=== PATIENT | female | born 1975 | race African-American/Black ===

== ENCOUNTER 2016-07-21 10:06 | Emergency (ER) | payer MEDICAID, OTHER ==
[2016-07-21 10:13] VITALS: BP 136/94
--- NOTE | 2016-07-21 10:17 | ER Document Report ---
ED Medical Screen (RME) - General Chief Complaint: Psych Problem Stated Complaint: SUICIDAL IDEATION Time seen by provider: 10:16 Mode of Arrival: Ambulatory Information source: Patient Notes: 41-year-old female presents to ED for suicidal ideation waiting for beds to be available. I have greeted and performed a rapid initial assessment of this patient. A comprehensive ED assessment and evaluation of the patient, analysis of test results and completion of medical decision making process will be conducted by an additional ED providers. TRAVEL OUTSIDE OF THE [place] IN LAST 30 DAYS: No - Related Data Allergies/Adverse Reactions: codeine [Codeine] Allergy (Severe, Verified 03/12/16 22:36) Lock jaw oxycodone HCl [From Percocet] Allergy (Severe, Verified 03/12/16 22:36) Abdominal bleeding Penicillins Allergy (Severe, Verified 03/12/16 22:36) Lips swell simvastatin [From Zocor] Allergy (Severe, Verified 03/12/16 22:36) Anaphylaxis ibuprofen [Ibuprofen] Allergy (Verified 03/12/16 22:36) Hypotension aspirin [Aspirin] Adverse Reaction (Intermediate, Verified 03/12/16 22:36) mushrooms Allergy (Unknown, Uncoded 03/12/16 22:36) Past Medical History - Social History Family history: Reviewed & Not Pertinent - Past Medical History Cardiac Medical History: Reports: Hx Hypertension Denies: Hx Coronary Artery Disease, Hx Heart Attack Pulmonary Medical History: Denies: Hx Asthma, Hx Bronchitis, Hx COPD, Hx Pneumonia Neurological Medical History: 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 Denies: Hx Cerebrovascular Accident Endocrine Medical History: Reports: Hx Diabetes Mellitus Type 2 Renal/ Medical History: Denies: Hx Peritoneal Dialysis GI Medical History: Musculoskeltal Medical History: Denies Hx Arthritis Psychiatric Medical History: Reports: Hx Anxiety, Hx Bipolar Disorder, Hx Borderline Personality Disorder, Hx Depression Infectious Medical History: Past Surgical History: Reports: Hx Breast Surgery - abscess x2, Hx Cholecystectomy, Hx Genitourinary Surgery - cerclage, Hx Hysterectomy, Hx Orthopedic Surgery - R index tumor removed. Denies: Hx Pacemaker - Immunizations Immunizations up to date: Yes Hx Diphtheria, Pertussis, Tetanus Vaccination: Yes - 2006 Physical Exam - Vital signs Vitals: Temp Pulse Resp BP Pulse Ox 98.4 F 91 18 136/94 H 97 07/21/16 10:07 07/21/16 10:07 07/21/16 10:07 07/21/16 10:07 07/21/16 10:07 Course - Vital Signs Vital signs: Temp Pulse Resp BP Pulse Ox 98.4 F 91 18 136/94 H 97 07/21/16 10:07 07/21/16 10:07 07/21/16 10:07 07/21/16 10:07 07/21/16 10:07
--- NOTE | 2016-07-21 10:43 | ER Document Report ---
ED General - General Chief Complaint: Psych Problem Stated Complaint: SUICIDAL IDEATION Time seen by provider: 10:41 Mode of Arrival: Ambulatory Information source: Patient Notes: 41-year-old female states she attempted overdose on Klonopin 1 week ago and is continuing to have suicidal ideations now. She also reports that she is having auditory hallucinations. Shortness prior history of suicide attempts says that she has a bed assignment at [facility] once a bed becomes available. Patient reports no other suicide attempts within the past week. Physical Exam: General: Alert, appears well. HEENT: Normocephalic. Atraumatic. PERRLA. Extraocular movements intact. Oropharynx clear. Neck: Supple. Non-tender. Respiratory: No respiratory distress. Clear and equal breath sounds bilaterally. Cardiovascular: Regular rate and rhythm. Abdominal: Normal Inspection. Soft, non-tender. No distension. Normal Bowel Sounds. Back: Non-tender. No deformity or step off. Extremities: Moves all four extremities. Upper extremities: Normal inspection. Non-tender. Normal color. Normal ROM. Normal temperature. Lower extremities: Normal inspection. Non-tender. No edema. Normal color. Normal ROM. Normal temperature. Neurological: Cranial nerves III-XII grossly intact bilaterally. Strength 5/5 throughout. Sensation intact to light touch. Normal cognition. AAOx4. Normal speech. Psychological: Normal affect. Normal Mood. Skin: Warm. Dry. Normal color. TRAVEL OUTSIDE OF THE [place] IN LAST 30 DAYS: No - Related Data Allergies/Adverse Reactions: codeine [Codeine] Allergy (Severe, Verified 07/21/16 11:03) Lock jaw oxycodone HCl [From Percocet] Allergy (Severe, Verified 07/21/16 11:03) Abdominal bleeding Penicillins Allergy (Severe, Verified 07/21/16 11:03) Lips swell simvastatin [From Zocor] Allergy (Severe, Verified 07/21/16 11:03) Anaphylaxis ibuprofen [Ibuprofen] Allergy (Verified 07/21/16 11:03) Hypotension aspirin [Aspirin] Adverse Reaction (Intermediate, Verified 07/21/16 11:03) mushrooms Allergy (Unknown, Uncoded 07/21/16 11:03) Past Medical History - General Information source: Patient - Social History Smoking Status: Current Every Day Smoker Family History: CVA, DM, Hyperlipidemia, Hypertension, Malignancy Patient has suicidal ideation: Yes Patient has homicidal ideation: No - Past Medical History Cardiac Medical History: Reports: Hx Hypertension Denies: Hx Coronary Artery Disease, Hx Heart Attack Pulmonary Medical History: Denies: Hx Asthma, Hx Bronchitis, Hx COPD, Hx Pneumonia Neurological Medical History: 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 Denies: Hx Cerebrovascular Accident Endocrine Medical History: Reports: Hx Diabetes Mellitus Type 2 Renal/ Medical History: Denies: Hx Peritoneal Dialysis GI Medical History: Musculoskeltal Medical History: Denies Hx Arthritis Psychiatric Medical History: Reports: Hx Anxiety, Hx Bipolar Disorder, Hx Borderline Personality Disorder, Hx Depression Infectious Medical History: Past Surgical History: Reports: Hx Breast Surgery - abscess x2, Hx Cholecystectomy, Hx Genitourinary Surgery - cerclage, Hx Hysterectomy, Hx Orthopedic Surgery - R index tumor removed. Denies: Hx Pacemaker - Immunizations Immunizations up to date: Yes Hx Diphtheria, Pertussis, Tetanus Vaccination: Yes - 2006 Hx Pneumococcal Vaccination: 02/28/12 Review of Systems - Review of Systems Constitutional: No symptoms reported EENT: No symptoms reported Cardiovascular: No symptoms reported Respiratory: No symptoms reported Gastrointestinal: No symptoms reported Genitourinary: No symptoms reported Musculoskeletal: No symptoms reported Hematologic/Lymphatic: No symptoms reported Neurological/Psychological: No symptoms reported Physical Exam - Vital signs Vitals: Temp Pulse Resp BP Pulse Ox 98.4 F 91 18 136/94 H 97 07/21/16 10:07 07/21/16 10:07 07/21/16 10:07 07/21/16 10:07 07/21/16 10:07 Course - Re-evaluation Re-evalutation: 07/21/16 13:03 Patient is medically clear for psychiatric disposition 07/21/16 15:08 Patient can be seen at her mental health provider as a walk-in now. As the patient is voluntarily seeking treatment and is reporting no plan now she'll be discharged to go directly there - Vital Signs Vital signs: Temp Pulse Resp BP Pulse Ox 98.4 F 91 18 136/94 H 97 07/21/16 10:07 07/21/16 10:07 07/21/16 10:35 07/21/16 10:07 07/21/16 10:07 - Laboratory Result Diagrams: 07/21/16 10:30 07/21/16 10:30 Laboratory results interpreted by me: 07/21/16 07/21/16 10:30 10:30 RDW 14.5 H Glucose 126 H ALT 55 H Salicylates < 1.0 L Acetaminophen < 10 L - EKG Interpretation by Me Additional EKG results interpreted by me: 07/21/16 10:43 EKG reviewed by myself shows sinus rhythm at 86 no acute changes Discharge - Discharge Clinical Impression: Bipolar 1 disorder, depressed Condition: Stable Disposition: HOME, SELF-CARE Additional Instructions: Bipolar Disorder Bipolar disorder is also called manic-depressive disorder. Depression alternates with brain hyperactivity called lavonne. Each phase lasts from several days to a few weeks. We don't know exactly what causes bipolar disorder , but it's treatable. During the "manic phase," you may feel elated and energetic. You may have racing thoughts, rapid speech, increased activity, and grandiose ideas. During this time, you may not realize how poor your judgement is. Inappropriate spending, drug abuse, excessive alcohol use, marriage problems, and irresponsible sexual behavior are common during the manic phase. During the "depressive phase," you might feel depressed, guilty, worthless , fatigued, and unable to concentrate. You might have thoughts of suicide. Good treatments are available for bipolar disorder. Christopher is a classic drug for bipolar disorder, and is still often useful. If the manic phase is very mild, an antidepressant alone can be prescribed. If the manic phase is very severe, an antipsychotic medicine (such as Haldol) may be needed. The treatment must be matched to your symptoms, so it's important to work closely with your psychiatric care provider. Contact your physician, the hospital emergency center, crisis line, or your counsellor if you are losing control or having self-destructive thoughts. Referrals: ORLANDO FAIR MD [Primary Care Provider] - Follow up as needed BERNADETTE MARCELO PA-C [PHYSICIAN MANAGER EMERGENCY DEPARTMENT] - 07/21/16 (go directly to your provider at [facility] now)
[2016-07-21 10:45] LABS: APPEARANCE,URINE CLEAR; BILIRUBIN,URINE NEGATIVE (NEGATIVE); GLUCOSE, URINE NEGATIVE (NEGATIVE); KETONES,URINE NEGATIVE (NEGATIVE); LEUKOCYTE ESTERASE,URINE NEGATIVE (NEGATIVE); NITRITE,URINE NEGATIVE (NEGATIVE); PROTEIN,URINE NEGATIVE (NEGATIVE); URINE SPECIFIC GRAVITY 1.009; UROBILINOGEN,URINE NEGATIVE mg/dL (<2.0)
[2016-07-21] MEDS ORDERED: NICOTINE 14 MG/24 HR PATCH.TD24 TD ONE (10:59)
[2016-07-21 11:01] LABS: ABSOLUTE EOSINOPHILS # (AUTO) 0.1 10^3/uL (0.0-0.6); ABSOLUTE LYMPHOCYTES (AUTO) 2.4 10^3/uL (0.5-4.7); ABSOLUTE MONOCYTES (AUTO) 0.5 10^3/uL (0.1-1.4); ABSOLUTE NEUT (AUTO) 2.6 10^3/uL (1.7-8.2); BASOPHILS % (AUTO) 0.6 % (0-2); EOSINOPHILS % (AUTO) 2.3 % (0-6); HEMATOCRIT 39.2 % (36.0-47.0); HEMOGLOBIN 12.7 g/dL (12.0-15.5); HGB HCT DIFFERENCE -1.1; MEAN CORPUSCULAR HEMOGLOBIN 28.1 pg (27.0-33.4); MEAN CORPUSCULAR HGB CONC 32.5 g/dL (32.0-36.0); MEAN CORPUSCULAR VOLUME 86 fl (80-97); MONOCYTES % (AUTO) 8.5 % (3-13); RED BLOOD COUNT 4.54 10^6/uL (3.72-5.28); RED CELL DISTRIBUTION WIDTH 14.5 % (11.5-14.0); SEGMENTED NEUTROPHILS % (AUTO) 46.6 % (42-78); WHITE BLOOD COUNT 5.7 10^3/uL (4.0-10.5)
[2016-07-21 11:03] LABS: ALANINE AMINOTRANSFERASE 55 U/L (9-52); ALBUMIN 4.3 g/dL (3.5-5.0); ALCOHOL < 10 mg/dL (NONE DETECTED); ALKALINE PHOSPHATASE 67 U/L (38-126); ANION GAP 12 (5-19); ASPARTATE AMINO TRANSFERASE 27 U/L (14-36); BILIRUBIN,TOTAL 0.4 mg/dL (0.2-1.3); BLOOD UREA NITROGEN 12 mg/dL (7-20); CALCIUM 9.7 mg/dL (8.4-10.2); CARBON DIOXIDE 29 mmol/L (22-30); CHLORIDE 102 mmol/L (98-107); CREATININE RESULT 0.91 mg/dL (0.52-1.25); GLUCOSE 126 mg/dL (75-110); SODIUM 142.5 mmol/L (137-145); TOTAL PROTEIN 6.8 g/dL (6.3-8.2)
[2016-07-21 11:37] LABS: URINE BARBITURATES SCREEN NEGATIVE; URINE METHADONE SCREEN NEGATIVE; URINE PHENCYCLIDINE SCREEN NEGATIVE
[2016-07-21] MEDS ORDERED: HYDROXYZINE PAMOATE 50 MG CAPSULE PO ONE (13:39)
--- NOTE | 2016-07-21 15:46 | EKG REPORT ---
SEVERITY:- NORMAL ECG - SINUS RHYTHM : Confirmed by: Lilly Marrero 21-Jul-2016 15:45:44
--- NOTE | 2016-07-22 11:39 | PSYCHOLOGICAL NOTE ---
Psych Note - Psych Note Psych Note: Patient is a 41 year old female who presents via her after she called her psychiatric provider to report continued SI. Patient states she was seen by her psychiatric provider, Eden Rajan at [facility] this past Thursday where she endorsed having attempted suicide via overdose of her prescribed Klonopin. Patient states her made her go to the appointment, and while there Ms. Rajan increased her doses of Abilify, etc. and instructed her to call Thursday if she continued experience suicidal ideations. Patient states she has a number of stressors, to include kids who are always arguing with her, as well as the upcoming anniversary of her father's . Patient states she was in the room with her father when he , and could not do anything. Patient reports she recently spoke with her father's who told her she was jealous and hurt that she got to be with him during his last moments. Patient states she wants to . Patient states she has visions of her father and aunt telling her to come be with them and that it is peaceful on that side. Patient states she does not want to be alive any longer that everyone is better off without her here. Patient states there is no peace for her in this world. Patient reports a prior suicide attempt, but then clarifies that her stopped her from running in front of an [address]. Patient's states the patient didn't realize how many pills she took last , but the patient told him, "I took a couple too many." He reports movies trigger her re: her father's and recently when she turns on the tv etc, it is something about . states she has tried to kill herself in the past and has been inpatient about 4-5 times. states the patient has not been asleep at all this weekend, except for possibly 6 hours total since Thursday. He states when she is not sleeping, she is up and down cleaning, cooking, doing laundry, etc. reports he was not concerned for her safety when she told him she overdosed, or else he would have brought her to the ED. Patient is A&O. Mood is euthymic with normal affect. Patient endorses suicidal ideations, with intent and plan to overdose. Patient reports hallucinations, and states she sees people. Note, she reports these hallucinations as her family members. Thought processes were goal oriented towards going inpatient. Conversational speech was WNL for rate, tone, and prosody. Intellectual abilities were estimated within average range. Attention and focus were good. Insight and impulse control were poor; judgment was fair. 296.80 (F31.9) Unspecified Bipolar Disorder R/O Borderline Personality Disorder Patient is psychiatrically cleared to discharge and pursue voluntary admission to a psychiatric hospital. Patient does not meet criteria for IVC per the [place] GS 122C as she denies wanting to aeb by verbal statements, seeking help, and remaining safe all weekend post her alleged overdose, etc. Additionally, patient's reports of hallucinations are incongruent with what is commonly associated with psychosis, and presents more grief related. Collateral obtained from [facility] admissions worker, Enma, coincides with secondary gain as she reports the provider prompted the patient to go inpatient Thursday when she initially presented; however, the patient reportedly wanted to stay at home for the weekend. Patient waws provided numerous resources and multiple options should she feel she requires inpatient hospitalization, as well as Mobile Crisis contact information to assist her in remaining safe. Note , patient was offered a bed at [facility]; however, her could not drive her there due to him being tired and concerns over their vehicle's reliability. Patient and were made aware of hospitals closer in proximity (45 minutes away); however, stated he was too tired to drive her there as well. I consulted with Dr. Grijalva in regards to the care and management of this patient. ED MD is in agreement with disposition and recommendations.
== END 2016-07-21 15:30 | disposition home or self-care (01) ==
LOC: ER 10:06
DX: F31.9 Bipolar disorder, unspecified (principal); R45.851 Suicidal ideations; R44.0 Auditory hallucinations; F17.210 Nicotine dependence, cigarettes, uncomplicated
CPT/HCPCS: 93005; 99285; 36415; 80307 ×4; 84703; 85025; 80053; 81001; 93010; J3490 ×2

== ENCOUNTER 2017-04-15 21:34 | Emergency (ER) | payer MEDICAID, OTHER ==
[2017-04-15] MEDS ORDERED: ASPIRIN 81 MG TABLET, CHEWABLE PO ONE (21:55)
--- NOTE | 2017-04-15 22:31 | RADIOLOGY REPORT (SQ) ---
EXAM DESCRIPTION: CHEST SINGLE VIEW COMPLETED DATE/TIME: 04/15/2017 10:07 pm REASON FOR STUDY: cp COMPARISON: None. EXAM PARAMETERS: NUMBER OF VIEWS: One view. TECHNIQUE: Single frontal radiographic view of the chest acquired. RADIATION DOSE: NA LIMITATIONS: None. FINDINGS: LUNGS AND PLEURA: Patchy airspace opacities in the right lung base. Mild bronchial wall t hickening and interstitial changes. No pneumothorax. No significant effusion. MEDIASTINUM AND HILAR STRUCTURES: No masses. Contour normal. HEART AND VASCULAR STRUCTURES: Heart normal in size. Normal vasculature. BONES: No acute findings. HARDWARE: None in the chest. OTHER: No other significant finding. IMPRESSION: Patchy airspace opacities in the right lung base. TECHNICAL DOCUMENTATION: JOB ID: [id number]
[2017-04-15 23:03] LABS: ABSOLUTE BASOPHILS # (AUTO) 0.1 10^3/uL (0.0-0.2); ABSOLUTE EOSINOPHILS # (AUTO) 0.4 10^3/uL (0.0-0.6); ABSOLUTE LYMPHOCYTES (AUTO) 2.9 10^3/uL (0.5-4.7); ABSOLUTE MONOCYTES (AUTO) 0.9 10^3/uL (0.1-1.4); ABSOLUTE NEUT (AUTO) 7.9 10^3/uL (1.7-8.2); BASOPHILS % (AUTO) 0.9 % (0-2); EOSINOPHILS % (AUTO) 3.3 % (0-6); HEMATOCRIT 38.2 % (36.0-47.0); HEMOGLOBIN 12.8 g/dL (12.0-15.5); HGB HCT DIFFERENCE 0.2; LYMPHOCYTES % (AUTO) 23.6 % (13-45); MEAN CORPUSCULAR HEMOGLOBIN 28.9 pg (27.0-33.4); MEAN CORPUSCULAR HGB CONC 33.6 g/dL (32.0-36.0); MEAN CORPUSCULAR VOLUME 86 fl (80-97); MONOCYTES % (AUTO) 7.6 % (3-13); RED BLOOD COUNT 4.45 10^6/uL (3.72-5.28); RED CELL DISTRIBUTION WIDTH 15.5 % (11.5-14.0); SEGMENTED NEUTROPHILS % (AUTO) 64.6 % (42-78); WHITE BLOOD COUNT 12.1 10^3/uL (4.0-10.5)
[2017-04-16] MEDS ORDERED: HYDROCODONE/ACETAMINOPHEN 5-325 MG TABLET PO ONE
[2017-04-16] MEDS ORDERED: ACETAMINOPHEN 325 MG TABLET PO ONE (00:01)
--- NOTE | 2017-04-16 00:02 | ER Document Report ---
ED General - General Chief Complaint: Shortness Of Breath Stated Complaint: CHEST PAIN Time Seen by Provider: 04/15/17 23:59 Notes: Patient is a 42-year-old female comes emergency department for chief complaint of cough, pain in her chest with cough, yellow sputum production, pain over her sinuses, and chills since yesterday. She denies any obvious sick contacts. She denies nausea or vomiting, dysuria, abdominal pain, flank pain. She denies headache. Past medical history of anxiety/PTSD/, type 2 diabetes on metformin. TRAVEL OUTSIDE OF THE [place] IN LAST 30 DAYS: No - Related Data Allergies/Adverse Reactions: codeine [Codeine] Allergy (Severe, Verified 07/21/16 11:03) Lock jaw oxycodone HCl [From Percocet] Allergy (Severe, Verified 07/21/16 11:03) Abdominal bleeding Penicillins Allergy (Severe, Verified 07/21/16 11:03) Lips swell simvastatin [From Zocor] Allergy (Severe, Verified 07/21/16 11:03) Anaphylaxis ibuprofen [Ibuprofen] Allergy (Verified 07/21/16 11:03) Hypotension aspirin [Aspirin] Adverse Reaction (Intermediate, Verified 07/21/16 11:03) mushrooms Allergy (Unknown, Uncoded 07/21/16 11:03) Past Medical History - General Information source: Patient - Social History Smoking Status: Never Smoker Frequency of alcohol use: None Drug Abuse: None Lives with: Family Family History: CVA, DM, Hyperlipidemia, Hypertension, Malignancy Patient has suicidal ideation: No Patient has homicidal ideation: No - Past Medical History Cardiac Medical History: Reports: Hx Hypertension Denies: Hx Coronary Artery Disease, Hx Heart Attack Pulmonary Medical History: Denies: Hx Asthma, Hx Bronchitis, Hx COPD, Hx Pneumonia Neurological Medical History: 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 Denies: Hx Cerebrovascular Accident Endocrine Medical History: Reports: Hx Diabetes Mellitus Type 2 Renal/ Medical History: Denies: Hx Peritoneal Dialysis GI Medical History: Musculoskeltal Medical History: Denies Hx Arthritis Psychiatric Medical History: Reports: Hx Anxiety, Hx Bipolar Disorder, Hx Borderline Personality Disorder, Hx Depression Infectious Medical History: Past Surgical History: Reports: Hx Breast Surgery - abscess x2, Hx Cholecystectomy, Hx Genitourinary Surgery - cerclage, Hx Hysterectomy, Hx Orthopedic Surgery - R index tumor removed. Denies: Hx Pacemaker - Immunizations Immunizations up to date: Yes Hx Diphtheria, Pertussis, Tetanus Vaccination: Yes - 2006 Hx Pneumococcal Vaccination: 02/28/12 Review of Systems - Review of Systems Constitutional: See HPI EENT: See HPI Cardiovascular: See HPI Respiratory: See HPI Gastrointestinal: No symptoms reported Genitourinary: No symptoms reported Female Genitourinary: No symptoms reported Musculoskeletal: No symptoms reported Skin: No symptoms reported Hematologic/Lymphatic: No symptoms reported Neurological/Psychological: No symptoms reported Physical Exam - Vital signs Vitals: Temp Pulse Resp BP Pulse Ox 100.3 F 116 H 18 159/112 H 95 04/15/17 21:50 04/15/17 21:50 04/15/17 21:50 04/15/17 21:50 04/15/17 21:50 Interpretation: Normal - General General appearance: Other - Patient mildly ill in appearance, slightly flushed - HEENT Head: Normocephalic, Atraumatic Eyes: Normal Conjunctiva: Normal Extraocular movements intact: Yes Eyelashes: Normal Pupils: PERRL Ears: Normal Sinus: Other - Complaints with palpation over all sinuses but patient has no obvious discomfort Nasal: Normal Mouth/Lips: Normal Mucous membranes: Normal Pharynx: Normal Neck: Normal - Respiratory Respiratory status: No respiratory distress Chest status: Nontender Breath sounds: Nonproductive cough - Occasional cough Chest palpation: Normal - Cardiovascular Rhythm: Regular, Tachycardia Heart sounds: Normal auscultation, S1 appreciated, S2 appreciated Murmur: No - Abdominal Inspection: Normal Distension: No distension Bowel sounds: Normal Tenderness: Nontender Organomegaly: No organomegaly - Back Back: Normal, Nontender - Extremities General upper extremity: Normal inspection, Nontender, Normal color, Normal ROM , Normal temperature General lower extremity: Normal inspection, Nontender, Normal color, Normal ROM , Normal temperature, Normal weight bearing. No: Cortez's sign - Neurological Neuro grossly intact: Yes Cognition: Normal Orientation: AAOx4 Ben Coma Scale Eye Opening: Spontaneous [place] Coma Scale Verbal: Oriented Ben Coma Scale Motor: Obeys Commands Ben Coma Scale Total: 15 Speech: Normal Motor strength normal: LUE, RUE, LLE, RLE Sensory: Normal - Psychological Associated symptoms: Normal affect, Normal mood - Skin Skin Temperature: Warm Skin Moisture: Dry Skin Color: Normal Course - Re-evaluation Re-evalutation: Patient slightly febrile, mildly ill in appearance, somewhat tachycardic. Some congestion and cough. CBC shows mild leukocytosis with no shift. Chemistry and urine unremarkable. Tachycardia resolved after IV fluids. Chest x-ray showing right-sided pneumonia. This is consistent with patient's presentation. Patient given initial dose of doxycycline, she is not hypoxic, she is no longer tachycardic, she is no well-appearing. Discussed treatment of fever, antibiotic therapy, recommendations, return precautions with patient in detail. Patient states satisfaction and agreement with plan. - Vital Signs Vital signs: Temp Pulse Resp BP Pulse Ox 98.9 F 97 18 118/88 H 100 04/16/17 03:04 04/16/17 03:04 04/16/17 03:04 04/16/17 03:04 04/16/17 03:04 - Laboratory Result Diagrams: 04/15/17 22:45 04/15/17 23:50 Laboratory results interpreted by me: 04/15/17 04/15/17 22:45 23:50 WBC 12.1 H RDW 15.5 H Glucose 120 H Total Protein 6.2 L Discharge - Discharge Clinical Impression: Cough, Shortness of breath Fever Qualifiers: Fever type: unspecified Qualified Code(s): R50.9 - Fever, unspecified Pneumonia Qualifiers: Pneumonia type: due to unspecified organism Laterality: right Lung location: middle lobe of lung Qualified Code(s): J18.1 - Lobar pneumonia, unspecified organism Condition: Stable Disposition: HOME, SELF-CARE Additional Instructions: Your examination and workup are consistent with a right-sided pneumonia. Please take the doxycycline antibiotics as prescribed to completion, rest, hydrate, take Tylenol for fever, take the prescribed medicine for cough if needed. Follow-up with primary care. Return to emergency department for any concerning or worsening symptoms including difficulty breathing or any other worsening symptoms. Prescriptions: Hydrocodone Bit/Homatropine [Hycodan Syrup 5-1.5 mg/5 ml Ud Cup] 5 ml PO Q4HP PRN #120 ml PRN Reason: Doxycycline Hyclate 100 mg PO BID #14 capsule
[2017-04-16 00:17] LABS: ALANINE AMINOTRANSFERASE 29 U/L (9-52); ALBUMIN 3.7 g/dL (3.5-5.0); ALKALINE PHOSPHATASE 77 U/L (38-126); ANION GAP 10 (5-19); ASPARTATE AMINO TRANSFERASE 16 U/L (14-36); BILIRUBIN,DIRECT 0.4 mg/dL (0.0-0.4); BILIRUBIN,TOTAL 0.7 mg/dL (0.2-1.3); BLOOD UREA NITROGEN 9 mg/dL (7-20); CALCIUM 9.8 mg/dL (8.4-10.2); CARBON DIOXIDE 24 mmol/L (22-30); CHLORIDE 105 mmol/L (98-107); CREATINE KINASE 120 U/L (30-135); CREATININE RESULT 0.77 mg/dL (0.52-1.25); GLUCOSE 120 mg/dL (75-110); POTASSIUM 3.7 mmol/L (3.6-5.0); SODIUM 138.7 mmol/L (137-145); TOTAL PROTEIN 6.2 g/dL (6.3-8.2)
[2017-04-16 00:27] LABS: APPEARANCE,URINE CLEAR; BILIRUBIN,URINE NEGATIVE (NEGATIVE); GLUCOSE, URINE NEGATIVE (NEGATIVE); KETONES,URINE NEGATIVE (NEGATIVE); LEUKOCYTE ESTERASE,URINE NEGATIVE (NEGATIVE); NITRITE,URINE NEGATIVE (NEGATIVE); PROTEIN,URINE NEGATIVE (NEGATIVE); URINE SPECIFIC GRAVITY 1.006; UROBILINOGEN,URINE NEGATIVE mg/dL (<2.0)
[2017-04-16 00:50] LABS: CREATINE KINASE MB 0.45 ng/mL (<4.55)
[2017-04-16 00:51] LABS: TROPONIN I < 0.012 ng/mL
[2017-04-16] MEDS ORDERED: DOXYCYCLINE HYCLATE INJ 100 MG VIAL IV ONE (00:53)
[2017-04-16] MEDS ORDERED: NORMAL SALINE 1000 ML 1,000 ML IV ONE (01:09)
[2017-04-16 03:07] VITALS: BP 118/88
--- NOTE | 2017-04-16 20:16 | EKG REPORT ---
SEVERITY:- OTHERWISE NORMAL ECG - SINUS TACHYCARDIA : Confirmed by: Bina Buck MD 16-Apr-2017 20:15:48
== END 2017-04-16 03:04 | disposition home or self-care (01) ==
LOC: ER 21:34
DX: J18.1 Lobar pneumonia, unspecified organism (principal); R50.9 Fever, unspecified; R06.02 Shortness of breath; R05 Cough; R07.9 Chest pain, unspecified; F41.9 Anxiety disorder, unspecified; E11.9 Type 2 diabetes mellitus without complications
CPT/HCPCS: 93005; 99285; 96365; 36415; 82553; 82550; 85025; 81025; 80053; 81001; 84484; 71010; 93010; J3490

== ENCOUNTER 2017-09-02 11:48 | Emergency (ER) | payer SELFPAY ==
--- NOTE | 2017-09-02 12:48 | ER Document Report ---
HPI - HPI Patient complains to provider of: left foot pain Onset: Other - june Pain Level: 4 Context: 42 yo female with left dorsal foot pain since june, inverted it twice. Has not seen anyone about it. Dr ho pcp-used to take hctz 12.5 for htn. Associated Symptoms: None Exacerbated by: Movement, Walking Relieved by: Denies Similar symptoms previously: No Recently seen / treated by doctor: No - ROS ROS below otherwise negative: Yes Systems Reviewed and Negative: Yes All other systems reviewed and negative - REPRODUCTIVE Reproductive: DENIES: : Past Medical History - General Information source: Patient - Social History Smoking Status: Never Smoker Frequency of alcohol use: None Drug Abuse: None Lives with: Family Family History: CVA, DM, Hyperlipidemia, Hypertension, Malignancy - Past Medical History Cardiac Medical History: Reports: Hx Hypertension Pulmonary Medical History: Neurological Medical History: Reports: 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 Denies: Hx Pacemaker - Immunizations Immunizations up to date: Yes Hx Diphtheria, Pertussis, Tetanus Vaccination: Yes - 2006 Hx Pneumococcal Vaccination: 02/28/12 Vertical Provider Document - CONSTITUTIONAL Agree With Documented VS: Yes Exam Limitations: No Limitations General Appearance: No Apparent Distress - INFECTION CONTROL TRAVEL OUTSIDE OF THE [place] IN LAST 30 DAYS: No - HEENT HEENT: Normocephalic - NECK Neck: Supple - RESPIRATORY O2 Sat by Pulse Oximetry: 96 - MUSCULOSKELETAL/EXTREMETIES Musculoskeletal/Extremeties: MAEW, FROM, Tender - dorsal mid to lateral left foot, mild swelling. 2+ DP - NEURO Level of Consciousness: Awake, Alert - DERM Integumentary: Warm, Dry Course - Re-evaluation Re-evalutation: 09/02/17 14:27 xray is negative, will get her off of it, send to psychiatric lpn and carlos a Carrasco for pain, - Vital Signs Vital signs: Temp Pulse Resp BP Pulse Ox 98.6 F 109 H 20 182/110 H 96 09/02/17 11:55 09/02/17 11:55 09/02/17 11:55 09/02/17 11:55 09/02/17 11:55 Discharge - Discharge Clinical Impression: Left foot pain Hypertension Qualifiers: Hypertension type: unspecified Qualified Code(s): I10 - Essential (primary) hypertension Foot sprain Qualifiers: Encounter type: initial encounter Laterality: left Qualified Code(s): S93.602A - Unspecified sprain of left foot, initial encounter Condition: Good Disposition: HOME, SELF-CARE Instructions: Carlos A Wrap ([facility]), Anti-Inflammatory Medication ([facility]), Use of Crutches ([facility]), High Blood Pressure, Requiring Treatment ([facility]), Hydrochlorothiazide ([facility]) Additional Instructions: carlos a wrap crutches see the psychiatric lpn for the chronic foot pain see dr. ho for more tx for hypertension to er any conerns Prescriptions: Hydrochlorothiazide 12.5 mg PO DAILY #30 capsule Tramadol HCl [Ultram 50 mg Tablet] 50 mg PO ASDIR PRN #20 tablet PRN Reason: Forms: Return to Work Referrals: ORLANDO HO MD [Primary Care Provider] - Follow up tomorrow MARY ESQUIVEL DPM [ACTIVE STAFF] - Follow up as needed
--- NOTE | 2017-09-02 14:13 | RADIOLOGY REPORT (SQ) ---
EXAM DESCRIPTION: FOOT LEFT COMPLETE COMPLETED DATE/TIME: 09/02/2017 2:02 pm REASON FOR STUDY: inversion injury twice since jun COMPARISON: None. NUMBER OF VIEWS: Three views. TECHNIQUE: AP, lateral and oblique radiographic images acquired of the left foot. LIMITATIONS: None. FINDINGS: MINERALIZATION: Normal. BONES: No acute fracture or dislocation. No worrisome bone lesions. JOINTS: No effusions. SOFT TISSUES: No soft tissue swelling. No foreign body. OTHER: No other significant finding. IMPRESSION: NEGATIVE STUDY OF THE LEFT FOOT. NO RADIOGRAPHIC EVIDENCE OF ACUTE INJURY. TECHNICAL DOCUMENTATION: JOB ID: [id number] [employer]- All Rights Reserved Reading location - IP/workstation name: [email or web address]
[2017-09-02 15:07] VITALS: BP 176/116
== END 2017-09-02 14:53 | disposition home or self-care (01) ==
LOC: ER 11:48
DX: S93.602A Unspecified sprain of left foot, initial encounter (principal); M79.672 Pain in left foot; I10 Essential (primary) hypertension; X58.XXXA Exposure to other specified factors, initial encounter; Z79.899 Other long term (current) drug therapy
CPT/HCPCS: 99283

== ENCOUNTER 2017-10-12 03:47 | Emergency (ER) | payer MEDICAID ==
--- NOTE | 2017-10-12 04:13 | ER Document Report ---
HPI - HPI Pain Level: 4 - REPRODUCTIVE Reproductive: DENIES: : Past Medical History - Social History Smoking Status: Unknown if Ever Smoked Family History: CVA, DM, Hyperlipidemia, Hypertension, Malignancy Patient has suicidal ideation: No Patient has homicidal ideation: No - Past Medical History Cardiac Medical History: Reports: Hx Hypertension Denies: Hx Coronary Artery Disease, Hx Heart Attack Pulmonary Medical History: Denies: Hx Asthma, Hx Bronchitis, Hx COPD, Hx Pneumonia Neurological Medical History: 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 Denies: Hx Cerebrovascular Accident Endocrine Medical History: Reports: Hx Diabetes Mellitus Type 2 Renal/ Medical History: Denies: Hx Peritoneal Dialysis GI Medical History: Musculoskeltal Medical History: Denies Hx Arthritis Psychiatric Medical History: Reports: Hx Anxiety, Hx Bipolar Disorder, Hx Borderline Personality Disorder, Hx Depression Infectious Medical History: Past Surgical History: Reports: Hx Breast Surgery - abscess x2, Hx Cholecystectomy, Hx Genitourinary Surgery - cerclage, Hx Hysterectomy, Hx Orthopedic Surgery - R index tumor removed. Denies: Hx Pacemaker - Immunizations Immunizations up to date: Yes Hx Diphtheria, Pertussis, Tetanus Vaccination: Yes - 2006 Hx Pneumococcal Vaccination: 02/28/12 Vertical Provider Document - INFECTION CONTROL TRAVEL OUTSIDE OF THE [place] IN LAST 30 DAYS: No Course - Vital Signs Vital signs: Temp Pulse Resp BP Pulse Ox 98.5 F 82 18 160/93 H 100 10/12/17 03:55 10/12/17 03:55 10/12/17 03:55 10/12/17 03:55 10/12/17 03:55
[2017-10-12] MEDS ORDERED: ONDANSETRON 4 MG TAB.RAPDIS PO ONE (04:46)
[2017-10-12] MEDS ORDERED: HYDROCODONE/ACETAMINOPHEN 5-325 MG TABLET PO ONE ×2 (04:48→06:34)
--- NOTE | 2017-10-12 04:52 | ER Document Report ---
ED Neck/Back Problem - General Chief Complaint: Back Pain Stated Complaint: BACK PAIN /FALL Time Seen by Provider: 10/12/17 04:13 Mode of Arrival: Medic Information source: Patient Notes: 42-year-old patient had sudden onset of severe lower thoracic back pain that caused her to black out. She was on the phone talking about the animals with her and the next thing she knew she was on the floor on top of a tool kit. She called EMS because she was having frontal headache, posterior occipital pain neck pain upper and lower back pain. She has a history of degenerative disc disease. She occasionally takes hydrocodone. She has a cervical collar on. TRAVEL OUTSIDE OF THE [place] IN LAST 30 DAYS: No - Related Data Allergies/Adverse Reactions: codeine [Codeine] Allergy (Severe, Verified 10/12/17 05:33) Lock jaw oxycodone HCl [From Percocet] Allergy (Severe, Verified 10/12/17 05:33) Abdominal bleeding Penicillins Allergy (Severe, Verified 10/12/17 05:33) Lips swell simvastatin [From Zocor] Allergy (Severe, Verified 10/12/17 05:33) Anaphylaxis ibuprofen [Ibuprofen] Allergy (Verified 10/12/17 05:33) Hypotension aspirin [Aspirin] Adverse Reaction (Intermediate, Verified 10/12/17 05:33) mushrooms Allergy (Unknown, Uncoded 09/02/17 11:49) Past Medical History - General Information source: Patient - Social History Smoking Status: Current Every Day Smoker Frequency of alcohol use: None Drug Abuse: None Lives with: Family Family History: CVA, DM, Hyperlipidemia, Hypertension, Malignancy Patient has suicidal ideation: No Patient has homicidal ideation: No - Past Medical History Cardiac Medical History: Reports: Hx Hypertension Pulmonary Medical History: Neurological Medical History: Reports: 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 Denies: Hx Pacemaker - Immunizations Immunizations up to date: Yes Hx Diphtheria, Pertussis, Tetanus Vaccination: Yes - 2006 Hx Pneumococcal Vaccination: 02/28/12 Review of Systems - Review of Systems Constitutional: No symptoms reported EENT: No symptoms reported Cardiovascular: No symptoms reported Respiratory: No symptoms reported Gastrointestinal: No symptoms reported Genitourinary: No symptoms reported Female Genitourinary: No symptoms reported Musculoskeletal: See HPI Skin: No symptoms reported Hematologic/Lymphatic: No symptoms reported Neurological/Psychological: See HPI Physical Exam - Vital signs Vitals: Temp Pulse Resp BP Pulse Ox 98.5 F 82 18 160/93 H 100 10/12/17 03:55 10/12/17 03:55 10/12/17 03:55 10/12/17 03:55 10/12/17 03:55 Interpretation: Normal - General General appearance: Appears well, Alert In distress: None - HEENT Head: Normocephalic, Other - tender posterior occiput, no hematoma. No: Walsh' s sign, Rac[place]'s eyes Eyes: Normal Conjunctiva: Normal Pupils: PERRL Tympanic membrane: No: Hemotympanum Neck: Supple - tender over midline c spine - Respiratory Respiratory status: No respiratory distress Chest status: Nontender Breath sounds: Normal Chest palpation: Normal - Cardiovascular Rhythm: Regular Heart sounds: Normal auscultation Murmur: No - Abdominal Inspection: Normal Distension: No distension Bowel sounds: Normal Tenderness: Nontender. No: Tender Organomegaly: No organomegaly - Back Back: Normal, Tender - midline thoracic and lumber spine - Extremities General upper extremity: Normal inspection, Nontender, Normal color, Normal ROM , Normal temperature General lower extremity: Normal inspection, Nontender, Normal color, Normal ROM , Normal temperature, Normal weight bearing. No: Cortez's sign - Neurological Neuro grossly intact: Yes Cognition: Normal Orientation: AAOx4 Ben Coma Scale Eye Opening: Spontaneous Pyote Coma Scale Verbal: Oriented Ben Coma Scale Motor: Obeys Commands Pyote Coma Scale Total: 15 Speech: Normal Motor strength normal: LUE, RUE, LLE, RLE Sensory: Normal - Psychological Associated symptoms: Normal affect, Normal mood - Skin Skin Temperature: Warm Skin Moisture: Dry Skin Color: Normal Skin irregularity: negative: Rash Course - Re-evaluation Re-evalutation: 10/12/17 04:[address] Vogel about the workup, he went into go talk to the patient. he added some med and lab orders. 10/12/17 06:10 dr vogel states if scans and labs negative, pt can go home. troponin negative 10/12/17 06:33 T-spine shows mild disc desiccation lower T-spine, patient has a history of disc disease of the lumbar and thoracic spine. She will follow-up with Dr. Flanagan. 10/12/17 06:38 - Vital Signs Vital signs: Temp Pulse Resp BP Pulse Ox 98.5 F 82 18 160/93 H 100 10/12/17 03:55 10/12/17 03:55 10/12/17 03:55 10/12/17 03:55 10/12/17 03:55 - Laboratory Result Diagrams: 10/12/17 04:50 10/12/17 04:50 Laboratory results interpreted by me: 10/12/17 10/12/17 04:50 04:50 RDW 16.2 H Seg Neutrophils % 37.1 L Lymphocytes % 53.3 H Potassium 3.3 L Glucose 138 H Total Bilirubin 0.1 L Total Protein 6.0 L - EKG Interpretation by Me Rate: Normal Rhythm: NSR Additional EKG results interpreted by me: 10/12/17 05:[address] vogel, qtc 450, qt 380 Discharge - Discharge Clinical Impression: SYNCOPAL EPISODE, thoracic and lumbar back pain Cervical strain Qualifiers: Encounter type: initial encounter Qualified Code(s): S16.1XXA - Strain of muscle, fascia and tendon at neck level, initial encounter Headache Qualifiers: Headache type: unspecified Headache chronicity pattern: acute headache Intractability: not intractable Qualified Code(s): R51 - Headache Head injury Qualifiers: Encounter type: initial encounter Qualified Code(s): S09.90XA - Unspecified injury of head, initial encounter Degenerative disc disease Qualifiers: Spinal region: thoracolumbar Qualified Code(s): M51.35 - Other intervertebral disc degeneration, thoracolumbar region Condition: Good Disposition: HOME, SELF-CARE Instructions: Low Back Pain ([facility]), Warm Packs ([facility]), Upper Back Strain ([facility]), Headache ([facility]), Head Injury Precautions ([facility]), Oral Narcotic Medication ([facility]), Muscle Relaxers ([facility]) Additional Instructions: see your doctor for follow up copy of labs and imaging given to you to er any concerns Prescriptions: Hydrocodone Bit/Acetaminophen [Hydrocodon-Acetaminophen 5-325] 1 each PO Q4HP PRN #10 tablet PRN Reason: Cyclobenzaprine HCl [Flexeril 10 Mg Tablet] 10 mg PO TIDP PRN #20 tablet PRN Reason: Forms: Return to Work Referrals: ORLANDO FLANAGAN MD [PEDIATRICS] - Follow up as needed
[2017-10-12] MEDS ORDERED: LORAZEPAM INJ 2 MG/1 ML VIAL IM ONE (04:59)
[2017-10-12 05:09] LABS: ABSOLUTE BASOPHILS # (AUTO) 0.1 10^3/uL (0.0-0.2); ABSOLUTE EOSINOPHILS # (AUTO) 0.2 10^3/uL (0.0-0.6); ABSOLUTE LYMPHOCYTES (AUTO) 3.8 10^3/uL (0.5-4.7); ABSOLUTE MONOCYTES (AUTO) 0.5 10^3/uL (0.1-1.4); ABSOLUTE NEUT (AUTO) 2.6 10^3/uL (1.7-8.2); BASOPHILS % (AUTO) 0.8 % (0-2); EOSINOPHILS % (AUTO) 2.4 % (0-6); HEMATOCRIT 39.7 % (36.0-47.0); HEMOGLOBIN 13.2 g/dL (12.0-15.5); LYMPHOCYTES % (AUTO) 53.3 % (13-45); MEAN CORPUSCULAR HEMOGLOBIN 27.6 pg (27.0-33.4); MEAN CORPUSCULAR HGB CONC 33.2 g/dL (32.0-36.0); MEAN CORPUSCULAR VOLUME 83 fl (80-97); MONOCYTES % (AUTO) 6.4 % (3-13); PLATELET COUNT 259 10^3/uL (150-450); RED BLOOD COUNT 4.77 10^6/uL (3.72-5.28); RED CELL DISTRIBUTION WIDTH 16.2 % (11.5-14.0); SEGMENTED NEUTROPHILS % (AUTO) 37.1 % (42-78); TOTAL CELLS COUNTED % (AUTO) 100 %; WHITE BLOOD COUNT 7.1 10^3/uL (4.0-10.5)
[2017-10-12 05:32] LABS: ALANINE AMINOTRANSFERASE 43 U/L (9-52); ALBUMIN 3.5 g/dL (3.5-5.0); ALKALINE PHOSPHATASE 59 U/L (38-126); ANION GAP 9 (5-19); ASPARTATE AMINO TRANSFERASE 18 U/L (14-36); BILIRUBIN,DIRECT 0.1 mg/dL (0.0-0.4); BILIRUBIN,TOTAL 0.1 mg/dL (0.2-1.3); BLOOD UREA NITROGEN 9 mg/dL (7-20); CALCIUM 9.4 mg/dL (8.4-10.2); CARBON DIOXIDE 27 mmol/L (22-30); CHLORIDE 106 mmol/L (98-107); GLUCOSE 138 mg/dL (75-110); POTASSIUM 3.3 mmol/L (3.6-5.0); SODIUM 141.7 mmol/L (137-145)
--- NOTE | 2017-10-12 05:55 | RADIOLOGY REPORT (SQ) ---
EXAM DESCRIPTION: CT HEAD WITHOUT CLINICAL HISTORY: 42 years Female, fell hit head, neck pain COMPARISON: 7.15.16 TECHNIQUE: No contrast. This exam was performed according to our departmental dose-optimization program, which includes automated exposure control, adjustment of the mA and/or kV according to patient size and/or use of iterative reconstruction technique. FINDINGS: No hemorrhage or infarct. No mass, mass effect, or midline shift. Brain and extra-axial structures appear intact. IMPRESSION: Normal CT of the head.
--- NOTE | 2017-10-12 06:01 | RADIOLOGY REPORT (SQ) ---
EXAM DESCRIPTION: CT LUMBAR SPINE WITHOUT CLINICAL HISTORY: 42 years Female, trauma COMPARISON: None. TECHNIQUE: No contrast. Coronal and sagittal reformat. This exam was performed according to our departmental dose-optimization program, which includes automated exposure control, adjustment of the mA and/or kV according to patient size and/or use of iterative reconstruction technique. FINDINGS: Normal alignment and curvature. No spondylolysis and no spondylolisthesis. No significant disc herniation. No spinal or foraminal canal compromise. Cholecystectomy clips. 1.3 cm likely left adrenal adenoma. Atherosclerosis. Normal appendix. Abdominal clips. Minimal T11 anterior vertebral wedging. IMPRESSION: Intact CT appearance of the lumbar spine.
--- NOTE | 2017-10-12 06:10 | RADIOLOGY REPORT (SQ) ---
EXAM DESCRIPTION: CT CERVICAL SPINE WITHOUT CLINICAL HISTORY: 42 years Female, fell hit head, neck pain COMPARISON: None. TECHNIQUE: No contrast. Coronal and sagittal reformat. This exam was performed according to our departmental dose-optimization program, which includes automated exposure control, adjustment of the mA and/or kV according to patient size and/or use of iterative reconstruction technique. FINDINGS: No fracture or subluxation. Moderate straightening/loss of lordosis. Normal vertebral and intervertebral heights. Unenhanced nuchal soft tissues, inferior cranium, and upper thorax appear otherwise grossly intact. Impression: No acute findings.
--- NOTE | 2017-10-12 06:13 | RADIOLOGY REPORT (SQ) ---
EXAM DESCRIPTION: CT THORACIC SPINE WITHOUT CLINICAL HISTORY: 42 years Female, trauma COMPARISON: None. TECHNIQUE: No contrast. Coronal and sagittal reformat. This exam was performed according to our departmental dose-optimization program, which includes automated exposure control, adjustment of the mA and/or kV according to patient size and/or use of iterative reconstruction technique. FINDINGS: Mild disc desiccation at the lower thoracic spine. No spondylolysis and spondylolisthesis. Vertebral and intervertebral heights are within normal limits. No significant disc herniation. No spinal or foraminal canal compromise. Visualized posterior mediastinum, lower neck, and upper abdomen appear unremarkable. Soft tissues of the pack are unremarkable. IMPRESSION: No acute findings. Mild lower thoracic disc desiccation.
--- NOTE | 2017-10-12 06:17 | EKG REPORT ---
SEVERITY:- NORMAL ECG - SINUS RHYTHM : Confirmed by: Winston Cassidy MD 12-Oct-2017 06:17:04
[2017-10-12 07:10] VITALS: BP 149/95
== END 2017-10-12 07:10 | disposition home or self-care (01) ==
LOC: ER 03:47
DX: R55 Syncope and collapse (principal); S16.1XXA Strain of muscle, fascia and tendon at neck level, initial encounter; S09.90XA Unspecified injury of head, initial encounter; M51.35 Other intervertebral disc degeneration, thoracolumbar region; M54.5 Low back pain; W18.39XA Other fall on same level, initial encounter; Z88.6 Allergy status to analgesic agent; Z88.0 Allergy status to penicillin
CPT/HCPCS: 93005; 99284; 96372; 36415; 85025; 80053; 84484; 70450; 72125; 72128; 72131; 93010; S0119; J2060

== ENCOUNTER → 2017-10-30 | Outpatient (CLI) | payer MEDICAID ==
--- NOTE | 2017-10-30 11:08 | WOMENS IMAGING REPORT ---
EXAM DESCRIPTION: BILAT SCREENING MAMMO W/CAD COMPLETED DATE/TIME: 10/30/2017 10:18 am REASON FOR STUDY: ROUTINE SCREENING;Z12.31 Z12.31 ENCNTR SCREEN MAMMOGRAM FOR MALIGNANT NEOPLASM OF D[place]LIN COMPARISON: 2014, 2015 TECHNIQUE: Standard craniocaudal and mediolateral oblique views of each breast recorded using LeukoDxa l acquisition. LIMITATIONS: None. FINDINGS: No masses, calcifications or architectural distortion. No areas of suspicion. Read with the assistance of CAD. .[facility] - R2 C[employer]ova Version 1.3 .[facility] - R2 Cenova Version 1.3 .[facility] - R2 Cenova Version 2.4 .[facility] - R2 Cenova Version 2.4 .[facility] - R2 [employer] Version 9.2 IMPRESSION: NORMAL MAMMOGRAM. BIRADS 1. BREAST DENSITY: b. There are scattered areas of fibroglandular density. BIRAD: 1 NEGATIVE RECOMMENDATION: ROUTINE SCREENING Please continue yearly bilateral screening in October 2018, consider bilateral screening tomosynthesis COMMENT: The patient has been notified of the results by letter per SA requirements. Additional no tification policies are in place for contacting patient with suspicious or incomplete findings. Quality ID #[id number]: The [employer] recommends an annual screening mammogram for women aged 40 years or over. This facility utilizes a reminder system to ensure that all patients receive reminder letters, and/or direct phone calls for appointments. This includes reminders for routine scr eening mammograms, diagnostic mammograms, or other Breast Imaging Interventions when appropriate. Th is patient will be placed in the appropriate reminder system. The [employer] (A[employer]) has developed recommendations for screening MRI of the breast s in certain patient populations, to be used in conjunction with mammography. Breast MRI surveillanc e may be appropriate for women with more than 20% lifetime risk of developing breast cancer as deter mined by genetic testing, significant family history of the disease, or history of mantle radiation f or Hodgkins Disease. ACR Practice Guidelines 2008. TECHNICAL DOCUMENTATION: FINDING NUMBER: (1) ASSESSMENT: (1) JOB ID: [id number] [employer]- All Rights Reserved Reading location - IP/workstation name: [email or web address]
== END ==
LOC: WI 09:07
PROVIDERS: ATTEND Family Medicine
DX: Z12.31 Encounter for screening mammogram for malignant neoplasm of breast (principal)
CPT/HCPCS: 77067

== ENCOUNTER 2017-11-02 00:34 | Emergency (ER) | payer MEDICAID ==
[2017-11-02] MEDS ORDERED: DIPH/PERTUSS(ACELL)/TETANUS VAC/PF 0.5 ML SYR (>=10YO) IM ONE (00:48)
--- NOTE | 2017-11-02 00:50 | ER Document Report ---
ED General - General Chief Complaint: Suicidal Ideation Stated Complaint: SUICIDAL IDEATION Time Seen by Provider: 11/02/17 00:39 Notes: Patient is a 42-year-old female presents with complaint of being depressed and having severe anxiety to the point where she try to kill herself by cutting her left wrist. She says family remove the knife away from her before she could do a deep cuts to her wrist. She says that she does have a lot of anxiety and therefore she took 30 mg of IM tonight. She has a history of bipolar disorder as well as anxiety depression. She also has history of diabetes for which she takes metformin. She also takes hydrochlorothiazide for high blood pressure. She denies overdosing on any other medications. She currently feels sleepy and does not feel short of breath. She is unsure when her last tetanus shot was. She has no other complaints at this time. TRAVEL OUTSIDE OF THE [place] IN LAST 30 DAYS: No - Related Data Allergies/Adverse Reactions: codeine [Codeine] Allergy (Severe, Verified 10/12/17 05:33) Lock jaw oxycodone HCl [From Percocet] Allergy (Severe, Verified 10/12/17 05:33) Abdominal bleeding Penicillins Allergy (Severe, Verified 10/12/17 05:33) Lips swell simvastatin [From Zocor] Allergy (Severe, Verified 10/12/17 05:33) Anaphylaxis ibuprofen [Ibuprofen] Allergy (Verified 10/12/17 05:33) Hypotension aspirin [Aspirin] Adverse Reaction (Intermediate, Verified 10/12/17 05:33) mushrooms Allergy (Unknown, Uncoded 09/02/17 11:49) Past Medical History - Social History Smoking Status: Current Every Day Smoker Frequency of alcohol use: None Drug Abuse: None Family History: CVA, DM, Hyperlipidemia, Hypertension, Malignancy Patient has suicidal ideation: Yes Patient has homicidal ideation: No - Past Medical History Cardiac Medical History: Reports: Hx Hypertension Denies: Hx Coronary Artery Disease, Hx Heart Attack Pulmonary Medical History: Denies: Hx Asthma, Hx Bronchitis, Hx COPD, Hx Pneumonia Neurological Medical History: 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 Denies: Hx Cerebrovascular Accident Endocrine Medical History: Reports: Hx Diabetes Mellitus Type 2 Renal/ Medical History: Denies: Hx Peritoneal Dialysis GI Medical History: Musculoskeltal Medical History: Denies Hx Arthritis Psychiatric Medical History: Reports: Hx Anxiety, Hx Bipolar Disorder, Hx Borderline Personality Disorder, Hx Depression Infectious Medical History: Past Surgical History: Reports: Hx Breast Surgery - abscess x2, Hx Cholecystectomy, Hx Genitourinary Surgery - cerclage, Hx Hysterectomy, Hx Orthopedic Surgery - R index tumor removed. Denies: Hx Pacemaker - Immunizations Immunizations up to date: Yes Hx Diphtheria, Pertussis, Tetanus Vaccination: Yes - 2006 Hx Pneumococcal Vaccination: 02/28/12 Review of Systems - Review of Systems Notes: My Normal Review Basic REVIEW OF SYSTEMS: CONSTITUTIONAL : Denies fever, chills, or sweats. Denies recent illness. EENT: Denies eye, ear, throat, or mouth pain or symptoms. Denies nasal or sinus congestion. RESPIRATORY: Denies cough, cold, or chest congestion. Denies shortness of breath, difficulty breathing, or wheezing. GASTROINTESTINAL: Denies abdominal pain. Denies nausea, vomiting, or diarrhea. Denies constipation. Last BM: MUSCULOSKELETAL: Denies neck or back pain or joint pain or swelling. SKIN: Denies rash or skin lesions. NEUROLOGICAL: Denies altered mental status or loss of consciousness. Denies headache. Denies weakness or paralysis or loss of use of either side. Denies problems with gait or speech. Denies sensory or motor loss. PSYCHIATRIC: Anxiety depression and suicide attempt. ALL OTHER SYSTEMS REVIEWED AND NEGATIVE. Physical Exam - Vital signs Vitals: Temp Pulse Resp BP Pulse Ox 98.3 F 101 H 16 164/98 H 100 11/02/17 00:38 11/02/17 00:38 11/02/17 00:38 11/02/17 00:38 11/02/17 00:38 - Notes Notes: General Appearance: Well nourished, alert, cooperative, no acute distress, no obvious discomfort. Well Appearing. Vitals: reviewed, See vital signs table. Head: no swelling or tenderness to the head Eyes: PERRL, EOMI, Conjuctiva clear Mouth: No decreasd moisture Lungs: No wheezing, No rales, No rhonci, No accessory muscle use, good air exchange bilaterally. Heart: Normal rate, Regular rythm, No murmur, no rub Abdomen: Normal BS, soft, No rigidity, No abdominal tenderness, No guarding, no rebound, no abdominal masses, no organomegaly Extremities: strength 5/5 in all extremities, good pulses in all extremities, no swelling or tenderness in the extremities, no edema. All superficial scrape over the left wrist without any active bleeding. Skin: warm, dry, appropriate color, no rash Neuro: speech clear, oriented x 3, normal affect, responds appropriately to questions. Normal gait Course - Re-evaluation Re-evalutation: 11/02/17 06:35 Patient has not had any hypoxemia from taking 30 mg Valium. She is medically stable for psychiatric evaluation and placement due to attempt at hurting herself. Dictation of this chart was performed using voice recognition software; therefore, there may be some unintended grammatical errors. - Vital Signs Vital signs: Temp Pulse Resp BP Pulse Ox 98.3 F 101 H 16 114/69 98 11/02/17 00:38 11/02/17 00:38 11/02/17 00:38 11/02/17 05:01 11/02/17 05:01 - Laboratory Result Diagrams: 11/02/17 01:08 11/02/17 01:08 Laboratory results interpreted by me: 11/02/17 11/02/17 01:08 01:08 RDW 16.5 H Potassium 3.5 L Carbon Dioxide 31 H Glucose 168 H Total Bilirubin < 0.1 L Salicylates < 1.0 L Acetaminophen < 10 L - EKG Interpretation by Me Additional EKG results interpreted by me: 11/02/17 01:14 EKG is reviewed and interpreted by me. EKG shows normal sinus rhythm with a rate of [address] segment elevation or depression. No ischemic T-wave inversions. MT interval slightly prolonged. QRS duration is within normal range. QTc interval is borderline. Discharge - Discharge Clinical Impression: Anxiety Depression Qualifiers: Depression Type: unspecified Qualified Code(s): F32.9 - Major depressive disorder, single episode, unspecified Condition: Stable Disposition: PSYCH HOSP/UNIT Referrals: ORLANDO FAIR MD [Primary Care Provider] - Follow up as needed
[2017-11-02 01:19] LABS: ABSOLUTE BASOPHILS # (AUTO) 0.1 10^3/uL (0.0-0.2); ABSOLUTE EOSINOPHILS # (AUTO) 0.2 10^3/uL (0.0-0.6); ABSOLUTE LYMPHOCYTES (AUTO) 3.5 10^3/uL (0.5-4.7); ABSOLUTE MONOCYTES (AUTO) 0.6 10^3/uL (0.1-1.4); ABSOLUTE NEUT (AUTO) 4.3 10^3/uL (1.7-8.2); BASOPHILS % (AUTO) 0.7 % (0-2); EOSINOPHILS % (AUTO) 2.1 % (0-6); HEMATOCRIT 39.1 % (36.0-47.0); HEMOGLOBIN 13.1 g/dL (12.0-15.5); MEAN CORPUSCULAR HEMOGLOBIN 28.3 pg (27.0-33.4); MEAN CORPUSCULAR HGB CONC 33.5 g/dL (32.0-36.0); MEAN CORPUSCULAR VOLUME 84 fl (80-97); MONOCYTES % (AUTO) 7.1 % (3-13); PLATELET COUNT 355 10^3/uL (150-450); RED BLOOD COUNT 4.64 10^6/uL (3.72-5.28); RED CELL DISTRIBUTION WIDTH 16.5 % (11.5-14.0); SEGMENTED NEUTROPHILS % (AUTO) 50.1 % (42-78); TOTAL CELLS COUNTED % (AUTO) 100 %; WHITE BLOOD COUNT 8.6 10^3/uL (4.0-10.5)
[2017-11-02 01:23] LABS: APPEARANCE,URINE CLEAR; BILIRUBIN,URINE NEGATIVE (NEGATIVE); COLOR,URINE STRAW; GLUCOSE, URINE NEGATIVE (NEGATIVE); KETONES,URINE NEGATIVE (NEGATIVE); LEUKOCYTE ESTERASE,URINE NEGATIVE (NEGATIVE); NITRITE,URINE NEGATIVE (NEGATIVE); PROTEIN,URINE NEGATIVE (NEGATIVE); URINE SPECIFIC GRAVITY 1.003; UROBILINOGEN,URINE NEGATIVE mg/dL (<2.0)
[2017-11-02 01:43] LABS: URINE AMPHETAMINES SCREEN NEGATIVE; URINE BARBITURATES SCREEN NEGATIVE; URINE BENZODIAZEPINES SCREEN UNCONFIRMED POSITIVE; URINE COCAINE SCREEN NEGATIVE; URINE MARIJUANA (THC) SCREEN NEGATIVE; URINE METHADONE SCREEN NEGATIVE; URINE PHENCYCLIDINE SCREEN NEGATIVE
[2017-11-02 02:00] LABS: ALANINE AMINOTRANSFERASE 30 U/L (9-52); ALBUMIN 3.9 g/dL (3.5-5.0); ALKALINE PHOSPHATASE 91 U/L (38-126); ANION GAP 12 (5-19); ASPARTATE AMINO TRANSFERASE 16 U/L (14-36); BLOOD UREA NITROGEN 10 mg/dL (7-20); CALCIUM 10.1 mg/dL (8.4-10.2); CARBON DIOXIDE 31 mmol/L (22-30); CHLORIDE 98 mmol/L (98-107); GLUCOSE 168 mg/dL (75-110); POTASSIUM 3.5 mmol/L (3.6-5.0); SODIUM 141.1 mmol/L (137-145); TOTAL PROTEIN 6.7 g/dL (6.3-8.2)
[2017-11-02 02:02] LABS: ACETAMINOPHEN < 10 ug/mL (10-30); ALCOHOL < 10 mg/dL (NONE DETECTED); BILIRUBIN,TOTAL < 0.1 mg/dL (0.2-1.3); SALICYLATE < 1.0 mg/dL (2.0-20.0)
--- NOTE | 2017-11-02 07:34 | EKG REPORT ---
SEVERITY:- ABNORMAL ECG - SINUS RHYTHM FIRST DEGREE AV BLOCK : Confirmed by: Winston Cassidy MD 02-Nov-2017 07:33:21
[2017-11-02] MEDS ORDERED: METFORMIN HCL 500 MG TABLET PO ONE (09:27)
[2017-11-02] MEDS ORDERED: FLUOXETINE HCL 20 MG CAPSULE PO ONE (09:27)
[2017-11-02] MEDS ORDERED: GABAPENTIN 100 MG CAPSULE PO ONE ×2 (09:30→09:50)
--- NOTE | 2017-11-02 09:30 | ER Document Report ---
Doctor's Note Notes: This is a 42-year-old female with a history of bipolar affective disorder and borderline personality who presented as a possible overdose. She has been seen by the psychology team this morning. is currently at the bedside. Patient is requesting her morning medicines (metformin, Prozac, Valium, gabapentin and Percocet). Patient does state she has a history of chronic degenerative disease with back pain. I have explained to both her and the that due to the circumstances leading to her presentation (i.e. possible overdose), we are holding off on any narcotics/benzodiazepines. 11/02/17 09:29 11/02/17 11:48 Patient has been seen and evaluated by psychiatry. She is cleared for follow- up. She does have follow-up with [facility].
--- NOTE | 2017-11-02 11:42 | PSYCHOLOGICAL NOTE ---
Psych Note - Psych Note Psych Note: Reason for evaluation: Suicidal ideation Contact permissions Omar Todd [phone] Patient is a 42-year-old female. Patient reports she has been dealing with depression for a month now. Patient reports she has a history of bipolar disorder. Patient reports for the last 10 years she has had suicidal ideation when she is either manic or depressed. Patient reports she was triggered yesterday when her 16-year-old son told her he had lost his virginity. Patient reports she wanted him to wait till he was an adult. Patient reports she felt her because he lost his rigidity in the home. Patient reports she has history of generalized anxiety disorder and takes medications regularly. Patient reports she felt "I was in a black hole and sad and could not get out of it". Patient reports to feel better she will hang out with friends and always be around people. Patient reports although she has suicidal ideation she wants to go to her sleep study tonight to check if she has sleep apnea. Patient reports that she also wants to live for her kids. Patient reports that she has an MRI coming up to look at her back and spine to potentially get a neurosurgeon and she wants pain medications. Patient reports that she felt like a quarter because she does not finish hobbies and has not held a job. Patient reports that her is tired of her threatening suicidal ideation all the time. Patient reports her family recently put the knives back after having them put up for a while away from her. Patient reports the last time she went to an inpatient facility was [facility] where she stayed for 7-10 days in 2017 she went voluntarily. Patient reports she likes to go to the hospital at least once a year to stay for 7 days so that she can stop cutting. Collateral information: Omar Todd who is present Patient's reports he feels this is an attention thing because she never got attention from her mother. Patient's reports at the root of everything is the patient trying to reach out to her mother and her mother not answering the phone or saying she will call back and not actually calling back. Patient's reports is a social support system but he is also a reach lift truck driver so when he is gone for long hours and unable to get back to the house he gets calls like the one last night when she was threatening suicide. Patient's reports she has been threatening suicide for over 10 years. Patient's reports that he thinks that she is having an interaction between the medications and is concerned for the night medication she is taking. Patient's reports currently she is slightly manic because she wanted to hang out with her friends all the time and spend money and he took her off the bank account so she was upset. Patient's reports that when she is depressed she wants to spend money as well. Patient's reports last year patient cheated on him so they are still on the rocks this year. Patient's reports that they have been together for 18 years and have been for 16 years. Since reports they went to [employer] yesterday and everything was fine and then she became irritable when the coffee at [employer] was not good and stated that he did not see this episode coming but that he will safety plan in the home. Diagnosis: 296.80 (F31.9) Unspecified Bipolar Disorder R/O Borderline Personality Disorder Medication recommendation made by contracted [facility] provider Dr. Jah MD includes: 1. Please discontinue Ambien Impression/plan: Patient is psychiatrically cleared for discharge. Recommendation for patient to follow-up with outpatient provider at [facility] as a walk-in tomorrow. Patient's is present and agrees to safety plan in the home to remove access to weapons. Clinician observed patient has a history of self harming behaviors associated with her previous diagnosis of bipolar disorder, clinician observed patient has a previous diagnosis of borderline personality disorder. Clinician observed patient has future oriented thinking as evidenced by planning for her sleep study appointment scheduled today, and another appointment for pain management. Clinician observed patient disclosed she has had passive suicidal ideation for 10 years and does not and on acting on the plan due to having children. Clinician observed patient self-harm's as a negative coping skill and has not had outpatient therapy, only has medication management at [facility]. Clinician provided education on the scope of practice of outpatient therapy, and benefits of evidence based therapies. Consulted with Dr. Grijalva regarding the management and care of patient. Attending physician in agreement with plan and disposition.
[2017-11-02 12:17] VITALS: BP 147/92
== END 2017-11-02 12:17 | disposition home or self-care (01) ==
LOC: ER 00:34
DX: F31.61 Bipolar disorder, current episode mixed, mild (principal); Z63.8 Other specified problems related to primary support group; S60.812A Abrasion of left wrist, initial encounter; X78.1XXA Intentional self-harm by knife, initial encounter; I10 Essential (primary) hypertension; F41.9 Anxiety disorder, unspecified; E11.9 Type 2 diabetes mellitus without complications; Z79.84 Long term (current) use of oral hypoglycemic drugs; Z79.899 Other long term (current) drug therapy; F17.200 Nicotine dependence, unspecified, uncomplicated; Z88.5 Allergy status to narcotic agent; Z88.0 Allergy status to penicillin; Z88.8 Allergy status to other drugs, medicaments and biological substances; Z88.6 Allergy status to analgesic agent; Z91.018 Allergy to other foods
CPT/HCPCS: 93005; 99285; 90471; 36415; 80307 ×4; 84703; 85025; 80053; 81001; 90715; 93010; J3490 ×3

== ENCOUNTER 2017-12-05 18:42 | Emergency (ER) | payer MEDICAID ==
[2017-12-05 18:51] VITALS: BP 130/83
--- NOTE | 2017-12-05 18:59 | ER Document Report ---
HPI - HPI Pain Level: 4 - REPRODUCTIVE Reproductive: DENIES: : Past Medical History - Social History Family History: CVA, DM, Hyperlipidemia, Hypertension, Malignancy - Past Medical History Cardiac Medical History: Reports: Hx Hypertension Denies: Hx Coronary Artery Disease, Hx Heart Attack Pulmonary Medical History: Denies: Hx Asthma, Hx Bronchitis, Hx COPD, Hx Pneumonia Neurological Medical History: 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 Denies: Hx Cerebrovascular Accident Endocrine Medical History: Reports: Hx Diabetes Mellitus Type 2 Renal/ Medical History: Denies: Hx Peritoneal Dialysis GI Medical History: Musculoskeltal Medical History: Denies Hx Arthritis Psychiatric Medical History: Reports: Hx Anxiety, Hx Bipolar Disorder, Hx Borderline Personality Disorder, Hx Depression Infectious Medical History: Past Surgical History: Reports: Hx Breast Surgery - abscess x2, Hx Cholecystectomy, Hx Genitourinary Surgery - cerclage, Hx Hysterectomy, Hx Orthopedic Surgery - R index tumor removed. Denies: Hx Pacemaker - Immunizations Immunizations up to date: Yes Hx Diphtheria, Pertussis, Tetanus Vaccination: Yes - 2006 Hx Pneumococcal Vaccination: 02/28/12 Vertical Provider Document - INFECTION CONTROL TRAVEL OUTSIDE OF THE [place] IN LAST 30 DAYS: No Course - Vital Signs Vital signs: Temp Pulse Resp BP Pulse Ox 98.9 F 105 H 16 130/83 H 97 12/05/17 18:50 12/05/17 18:50 12/05/17 18:50 12/05/17 18:50 12/05/17 18:50 Discharge - Discharge Referrals: ORLANDO FAIR MD [Primary Care Provider] - Follow up as needed
[2017-12-05] MEDS ORDERED: HYDROCODONE/ACETAMINOPHEN 5-325 MG TABLET PO ONE (19:04)
--- NOTE | 2017-12-05 19:14 | ER Document Report ---
ED Medical Screen (RME) - General Chief Complaint: Fall Injury Stated Complaint: FALL/BACK PAIN Time Seen by Provider: 12/05/17 18:59 Mode of Arrival: Ambulatory Information source: Patient Notes: 42-year-old female fell and bumped down several steps on her porch this afternoon at 3:00 and since then she has numbness and tingling down both of her legs from hips to feet. She states the pain is really severe and she can no longer feel her genitalia area. I had her go to the bathroom and she stated when she sat on the toilet the urine just ran out she could not stop it. She has had no stool incontinence. TRAVEL OUTSIDE OF THE [place] IN LAST 30 DAYS: No - Related Data Allergies/Adverse Reactions: codeine [Codeine] Allergy (Severe, Verified 12/05/17 18:43) Lock jaw oxycodone HCl [From Percocet] Allergy (Severe, Verified 12/05/17 18:43) Abdominal bleeding Penicillins Allergy (Severe, Verified 12/05/17 18:43) Lips swell simvastatin [From Zocor] Allergy (Severe, Verified 12/05/17 18:43) Anaphylaxis ibuprofen [Ibuprofen] Allergy (Verified 12/05/17 18:43) Hypotension aspirin [Aspirin] Adverse Reaction (Intermediate, Verified 12/05/17 18:43) mushrooms Allergy (Unknown, Uncoded 12/05/17 18:43) Past Medical History - Social History Family history: Reviewed & Not Pertinent - Past Medical History Cardiac Medical History: Reports: Hx Hypertension Denies: Hx Coronary Artery Disease, Hx Heart Attack Pulmonary Medical History: Denies: Hx Asthma, Hx Bronchitis, Hx COPD, Hx Pneumonia Neurological Medical History: 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 Denies: Hx Cerebrovascular Accident Endocrine Medical History: Reports: Hx Diabetes Mellitus Type 2 Renal/ Medical History: Denies: Hx Peritoneal Dialysis GI Medical History: Musculoskeltal Medical History: Denies Hx Arthritis Psychiatric Medical History: Reports: Hx Anxiety, Hx Bipolar Disorder, Hx Borderline Personality Disorder, Hx Depression Infectious Medical History: Past Surgical History: Reports: Hx Breast Surgery - abscess x2, Hx Cholecystectomy, Hx Genitourinary Surgery - cerclage, Hx Hysterectomy, Hx Orthopedic Surgery - R index tumor removed. Denies: Hx Pacemaker - Immunizations Immunizations up to date: Yes Hx Diphtheria, Pertussis, Tetanus Vaccination: Yes - 2006 Physical Exam - Vital signs Vitals: Temp Pulse Resp BP Pulse Ox 98.9 F 105 H 16 130/83 H 97 12/05/17 18:50 12/05/17 18:50 12/05/17 18:50 12/05/17 18:50 12/05/17 18:50 Course - Vital Signs Vital signs: Temp Pulse Resp BP Pulse Ox 98.9 F 105 H 16 130/83 H 97 12/05/17 18:50 12/05/17 18:50 12/05/17 18:50 12/05/17 18:50 12/05/17 18:50 Doctor's Discharge - Discharge Referrals: ORLANDO FAIR MD [Primary Care Provider] - Follow up as needed
--- NOTE | 2017-12-05 19:53 | RADIOLOGY REPORT (SQ) ---
EXAM DESCRIPTION: SACRUM AND COCCYX COMPLETED DATE/TIME: 12/05/2017 7:28 pm REASON FOR STUDY: fell down stairs COMPARISON: Lumbar spine x-ray 12/05/2017, 07/30/2012, 08/23/2010. CT lumbar spine 10/12/2017. NUMBER OF VIEWS: Three views. TECHNIQUE: AP, lateral, and tilt views of the sacrum and coccyx. LIMITATIONS: None. FINDINGS: MINERALIZATION: Normal. BONES: No acute fracture or dislocation. No worrisome bone lesions. SOFT TISSUES: No soft tissue swelling. Surgical clips are noted at the pelvis. IMPRESSION: No radiographic evidence of acute injury. TECHNICAL DOCUMENTATION: JOB ID: [id number] [employer]- All Rights Reserved Reading location - IP/workstation name: [email or web address]
--- NOTE | 2017-12-05 20:06 | RADIOLOGY REPORT (SQ) ---
EXAM DESCRIPTION: L SPINE WHOLE COMPLETED DATE/TIME: 12/05/2017 7:28 pm REASON FOR STUDY: fell down stairs COMPARISON: Lumbar spine x-ray 07/30/2012. CT thoracic spine and CT lumbar spine 10/12/2017. NUMBER OF VIEWS: Five views including obliques. TECHNIQUE: AP, lateral, oblique, and sacral radiographic images acquired of the lumbar spine. LIMITATIONS: None. FINDINGS: MINERALIZATION: Normal. SEGMENTATION: Normal. No transitional anatomy. ALIGNMENT: Normal. VERTEBRAE: Maintained height. No fracture or worrisome bone lesion. DISCS: Degenerative disc disease and osteophytosis at the visualized lower thoracic spine. No signif icant degenerative disc disease at the lumbar spine. POSTERIOR ELEMENTS: Pedicles and facets are intact. No pars defect or posterior arch defects. HARDWARE: None in the spine. Surgical clips are noted at the right upper quadrant and pelvis. PARASPINAL SOFT TISSUES: Normal. PELVIS: SI joints intact. IMPRESSION: No acute radiographic finding at the lumbar spine. TECHNICAL DOCUMENTATION: JOB ID: [id number] [employer]- All Rights Reserved Reading location - IP/workstation name: [email or web address]
--- NOTE | 2017-12-05 20:45 | RADIOLOGY REPORT (SQ) ---
EXAM DESCRIPTION: MRI LUMBAR SPINE WITHOUT COMPLETED DATE/TIME: 12/05/2017 8:33 pm REASON FOR STUDY: fall, back pain, wekaness, suprapubic numbness COMPARISON: Radiographs from earlier. TECHNIQUE: Sagittal and Axial imaging includes T1, T2, STIR and gradient echo sequences. Coronal T2/ HASTE imaging. LIMITATIONS: None. FINDINGS: VISUALIZED UPPER ABDOMEN: Limited evaluation. No acute or suspicious findings suggested. SEGMENTATION: No transitional anatomy. The lowest well-developed disc space is labeled L5-S1. ALIGNMENT: Anatomic. VERTEBRAE: Intact. BONE MARROW: Normal. No marrow replacement or reactive changes. DISC SIGNAL: Normal. No significant abnormal signal or loss of height. POSTERIOR ELEMENTS: No pars defect or fracture or edema evident. Mild facet arthropathy. HARDWARE: None in the spine. CORD AND CONUS: Normal in size and signal intensity. Conus at the appropriate level. SOFT TISSUES: No aortic aneurysm seen. No bulky retroperitoneal adenopathy or mass. No paraspinal mas s or fluid. L1-L2: No significant spinal stenosis or exit foraminal stenosis. L2-L3: No significant spinal stenosis or exit foraminal stenosis. L3-L4: No significant spinal stenosis or exit foraminal stenosis. L4-L5: No significant spinal stenosis or exit foraminal stenosis. L5-S1: No significant spinal stenosis or exit foraminal stenosis. LOWER THORACIC: Incompletely imaged. No stenosis seen. SACRUM: Visualized upper sacrum intact. OTHER: No other significant findings. IMPRESSION: 1. No spinal malalignment or fracture. No significant disc bulges or hernias. No spina l stenosis or cord compression evident. TECHNICAL DOCUMENTATION: JOB ID: [id number]- All Rights Reserved Reading location - IP/workstation name: [email or web address]
[2017-12-05] MEDS ORDERED: HYDROCODONE/ACETAMINOPHEN 5-325 MG (6 TAB/ER DISP) PO PRN (20:56)
--- NOTE | 2017-12-05 20:57 | ER Document Report ---
HPI - HPI Pain Level: 4 Context: Patient is a 42-year-old female who presents emergency department after falling down some wooden stairs. Patient states that she was walking down stairs of her friend's dog when she slipped and landed on her tailbone and slid down 4 stairs. She denies any head injury, LOC.She admits to numbness along her tailbone and shooting pains in bilateral lower extremities described as lightening bolts. She admits to history of sciatica and history of degenerative disc disease. She admits to urinary incontinence prior to coming back to the exam room and while she is being evaluated by triage provider. - EENT EENT: DENIES: Sore Throat, Ear Pain, Eye problems - NEURO Neurology: DENIES: Headache, Weakness, Vision blurred, Dizzinesss / Vertigo - CARDIOVASCULAR Cardiovascular: DENIES: Chest pain - RESPIRATORY Respiratory: DENIES: Trouble Breathing, Coughing - GASTROINTESTINAL Gastrointestinal: DENIES: Abdominal Pain, Black / Bloody Stools - URINARY Urinary: DENIES: Dysuria, Urgency, Frequency - REPRODUCTIVE Reproductive: DENIES: : - MUSCULOSKELETAL Musculoskeletal: DENIES: Extremity pain Past Medical History - General Information source: Patient - Social History Smoking Status: Current Every Day Smoker Family History: CVA, DM, Hyperlipidemia, Hypertension, Malignancy Patient has suicidal ideation: No Patient has homicidal ideation: No - Past Medical History Cardiac Medical History: Reports: Hx Hypertension Denies: Hx Coronary Artery Disease, Hx Heart Attack Pulmonary Medical History: Denies: Hx Asthma, Hx Bronchitis, Hx COPD, Hx Pneumonia Neurological Medical History: 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 Denies: Hx Cerebrovascular Accident Endocrine Medical History: Reports: Hx Diabetes Mellitus Type 2 Renal/ Medical History: Denies: Hx Peritoneal Dialysis GI Medical History: Musculoskeltal Medical History: Denies Hx Arthritis Psychiatric Medical History: Reports: Hx Anxiety, Hx Bipolar Disorder, Hx Borderline Personality Disorder, Hx Depression Infectious Medical History: Past Surgical History: Reports: Hx Breast Surgery - abscess x2, Hx Cholecystectomy, Hx Genitourinary Surgery - cerclage, Hx Hysterectomy, Hx Orthopedic Surgery - R index tumor removed. Denies: Hx Pacemaker - Immunizations Immunizations up to date: Yes Hx Diphtheria, Pertussis, Tetanus Vaccination: Yes - 2006 Hx Pneumococcal Vaccination: 02/28/12 Vertical Provider Document - CONSTITUTIONAL Agree With Documented VS: Yes Notes: PHYSICAL EXAM GENERAL: Alert, interacts well. HEAD: Normocephalic, atraumatic. EYES: Pupils equal, round, and reactive to light. Extraocular movements intact. ENT: Oral mucosa moist, tongue midline. NECK: Full range of motion. Supple. Trachea midline. LUNGS: Clear to auscultation bilaterally, no wheezes, rales, or rhonchi. No respiratory distress. HEART: Regular rate and rhythm. No murmurs, gallops, or rubs. ABDOMEN: Soft, nondistended, nontender. No guarding, rebound, or rigidity.. Bowel sounds present in all 4 quadrants. EXTREMITIES: Moves all 4 extremities spontaneously. No edema, radial and dorsalis pedis pulses 2/4 bilaterally. No cyanosis. Back: 4 out of 5 strength both distally and proximally bilateral lower extremities. 1+ patellar reflexes bilaterally. No clonus. Sensation grossly intact in the bilateral lower extremities. Patient is able to ambulate but admits to weakness worse in her left leg and pain. Rectal tone intact NEUROLOGICAL: Alert and oriented x4. Normal speech. PSYCH: Normal affect, normal mood. SKIN: Warm, dry, normal turgor. No rashes or lesions noted. - INFECTION CONTROL TRAVEL OUTSIDE OF THE [place] IN LAST 30 DAYS: No Course - Re-evaluation Re-evalutation: 12/05/17 20:54 The patient presents with low back pain without signs of spinal cord compression , cauda equina syndrome, infection, aneurysm, or other serious etiology. The patient is neurologically intact. MRI ordered due to patients states UI in triage, weakness. MRI without evidence of underlying spinal cord injury or fracture. The patient has been instructed to return if the symptoms worsen or change in any way. - Vital Signs Vital signs: Temp Pulse Resp BP Pulse Ox 98.9 F 105 H 16 130/83 H 97 12/05/17 18:50 12/05/17 18:50 12/05/17 18:50 12/05/17 18:50 12/05/17 18:50 Discharge - Discharge Clinical Impression: Fall Qualifiers: Encounter type: initial encounter Qualified Code(s): W19.XXXA - Unspecified fall, initial encounter Condition: Good Disposition: HOME, SELF-CARE Additional Instructions: LOW BACK PAIN: Three out of every four people will have an episode of disabling back pain during their lifetime. Most commonly the pain is due to straining of the muscles and ligaments in the low back. Usual treatment includes: (1) Rest on a firm surface. Avoid lying on your stomach. (2) Ice pack the painful area. After a few days, gentle heat may be used intermittently to relax the area, or ice packs can be continued. (3) Medication may be needed -- muscle relaxers and antiinflammatory medicines are commonly used. (4) As the back improves, exercises are prescribed to strengthen the back and abdominal muscles. Your doctor will advise you on the proper care for your back at each stage in your recovery. You may be better in a few days -- or healing may take several weeks. If new symptoms of a "herniated disc" (radiation of pain, numbness, or tingling down the back of the leg or weakness in the leg) occur, you should be re-examined. Further testing may be necessary. ORAL NARCOTIC MEDICATION: You have been given a prescription for pain control. This medication is a narcotic. It's best taken with food, as nausea can result if taken on an empty stomach. Don't operate machinery or drive within six hours of taking this medication. Do not combine this medicine with alcohol, or with any medication which can cause sedation (such as cold tablets or sleeping pills) unless you get permission from the physician. Narcotics tend to cause constipation. If possible, drink plenty of fluids and eat a diet high in fiber and fruits. Please be aware that prescription narcotics also have the potential for abuse. People become addicted to these medications because of the general sense of wellbeing that they induce. This feeling along with a significant reduction in tension, anxiety, and aggression provides a stimulating seductive quality to these drugs. Once your pain is under control, we encourage you to discard your unused narcotics. MUSCLE RELAXERS: Muscle relaxing medications are usually prescribed for acute muscle spasm or injury to the neck and back. They are often combined with antiinflammatory pain medication for increased relief. You may stop the muscle relaxer when the pain and stiffness have improved. Start the medication again if spasms recur. Muscle relaxers may cause drowsiness, especially with the first dose. Do not operate machinery or drive while under the effects of the medication. Most muscle relaxers last up to 24 hours. Do not combine the medication with alcohol. ICE PACKS: Apply ice packs frequently against the painful area. Many different schedules are recommended, such as "20 minutes on, 20 minutes off" or "one hour ice, two hours rest." If you need to work, you may need to go longer between ice treatments. You should plan to have the area ice packed AT LEAST one fourth of the time. The ice should be applied over the wrap, tape, or splint, or over a layer of cloth -- not directly against the skin. Some ice bags have a built-in cloth and can be put directly on the skin. WARM PACKS: After approximately two days, apply gentle heat (such as a heating pad or hot water bottle) for about 20 to 30 minutes about every two hours -- at least four times daily. Warmth and elevation will help you make a more rapid recovery , and will ease the pain considerably. Do not use HOT heat, and never apply heat for longer than 30 minutes. The continuous heat can invisibly damage skin and muscles -- even when no burn is seen on the surface. Damaged muscles can make you MORE sore. FOLLOW-UP CARE: If you have been referred to a physician for follow-up care, call the physician s office for an appointment as you were instructed or within the next two days. If you experience worsening or a significant change in your symptoms, notify the physician immediately or return to the Emergency Department at any time for re-evaluation. Prescriptions: Cyclobenzaprine HCl [Flexeril 10 mg Tablet] 10 mg PO TIDP PRN #15 tab PRN Reason: Forms: Elevated Blood Pressure, Return to Work Referrals: ORLANDO FAIR MD [Primary Care Provider] - 12/07/17
== END 2017-12-05 21:24 | disposition home or self-care (01) ==
LOC: ER 18:42
DX: M54.5 Low back pain (principal); M79.604 Pain in right leg; M79.605 Pain in left leg; R20.0 Anesthesia of skin; R32 Unspecified urinary incontinence; R53.1 Weakness; W10.8XXA Fall (on) (from) other stairs and steps, initial encounter; F17.200 Nicotine dependence, unspecified, uncomplicated; I10 Essential (primary) hypertension; E11.9 Type 2 diabetes mellitus without complications
CPT/HCPCS: 72110; 72148; 72220; 99283

== ENCOUNTER 2018-03-18 19:35 | Emergency (ER) | payer MEDICAID ==
--- NOTE | 2018-03-18 20:13 | ER Document Report ---
ED Medical Screen (RME) - General Chief Complaint: Head Injury without LOC Stated Complaint: HEAD INJURY Time Seen by Provider: 03/18/18 20:05 Notes: 43 year old female, chief complaint of ceiling tile falling and hitting her on the head, she states she felt immediate neck pain when it landed on her head. She reports mild headache, she denies loss of consciousness, vomiting, focal numbness or weakness, new numbness in her hands although she has a chronic numbness in her left hand reportedly. She took a Valium before arrival. Currently reporting mainly neck pain. Not on a blood thinner. TRAVEL OUTSIDE OF THE [place] IN LAST 30 DAYS: No - Related Data Allergies/Adverse Reactions: codeine [Codeine] Allergy (Severe, Verified 12/05/17 18:43) Lock jaw oxycodone HCl [From Percocet] Allergy (Severe, Verified 12/05/17 18:43) Abdominal bleeding Penicillins Allergy (Severe, Verified 12/05/17 18:43) Lips swell simvastatin [From Zocor] Allergy (Severe, Verified 12/05/17 18:43) Anaphylaxis aspirin [Aspirin] Adverse Reaction (Intermediate, Verified 12/05/17 18:43) mushrooms Allergy (Unknown, Uncoded 12/05/17 18:43) Past Medical History - Social History Family history: Reviewed & Not Pertinent - Past Medical History Cardiac Medical History: Reports: Hx Hypertension Denies: Hx Coronary Artery Disease, Hx Heart Attack Pulmonary Medical History: Denies: Hx Asthma, Hx Bronchitis, Hx COPD, Hx Pneumonia Neurological Medical History: 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 Denies: Hx Cerebrovascular Accident Endocrine Medical History: Reports: Hx Diabetes Mellitus Type 2 Renal/ Medical History: Denies: Hx Peritoneal Dialysis GI Medical History: Musculoskeltal Medical History: Denies Hx Arthritis Psychiatric Medical History: Reports: Hx Anxiety, Hx Bipolar Disorder, Hx Borderline Personality Disorder, Hx Depression Infectious Medical History: Past Surgical History: Reports: Hx Breast Surgery - abscess x2, Hx Cholecystectomy, Hx Genitourinary Surgery - cerclage, Hx Hysterectomy, Hx Orthopedic Surgery - R index tumor removed. Denies: Hx Pacemaker - Immunizations Immunizations up to date: Yes Hx Diphtheria, Pertussis, Tetanus Vaccination: Yes - 2006 Physical Exam - Back Back: Tender - Tender over the general cervical area, normal emt i/85, normal distal neurovascular exam - Neurological Cognition: Normal Orientation: AAOx4 Ben Coma Scale Verbal: Oriented Ben Coma Scale Motor: Obeys Commands Speech: Normal Cranial nerves: Normal Motor strength normal: LUE, RUE, LLE, RLE Additional motor exam normals: Equal emt i/85 Doctor's Discharge - Discharge Referrals: ORLANDO FAIR MD [Primary Care Provider] - Follow up as needed
--- NOTE | 2018-03-18 20:53 | RADIOLOGY REPORT (SQ) ---
EXAM DESCRIPTION: CT CERVICAL SPINE WITHOUT COMPLETED DATE/TIME: 03/18/2018 8:36 pm REASON FOR STUDY: neck pain COMPARISON: 10/12/2017 TECHNIQUE: Axial images acquired through the cervical spine without intravenous contrast. Images re viewed with lung, soft tissue and bone windows. Reconstructed coronal and sagittal MPR images review ed. Images stored on PACS. All CT scanners at this facility use dose modulation, iterative reconstruction, and/or weight based d osing when appropriate to reduce radiation dose to as low as reasonably achievable (ALARA). [facility]: Dose Right [facility]: CareDose [facility]: Dose Right [facility]: Teradose 4D [facility]: [employer] RADIATION DOSE: CT Rad equipment meets quality standard of care and radiation dose reduction techniq ues were employed. CTDIvol: 20.4 mGy. DLP: 437 mGy-cm. mGy. LIMITATIONS: None. FINDINGS: ALIGNMENT: Anatomic. MINERALIZATION: Normal. VERTEBRAL BODIES: No fractures or dislocation. DISCS: No significant disc disease. FACETS, LATERAL MASSES, POSTERIOR ELEMENTS: No fractures. No dislocation. No acute findings. HARDWARE: None in the spine. VISUALIZED RIBS: No fractures. LUNG APICES AND SOFT TISSUES: No significant or acute findings. OTHER: No other significant finding. IMPRESSION: NO ACUTE FINDINGS IN THE CERVICAL SPINE. TECHNICAL DOCUMENTATION: JOB ID: [id number] [place]-[id number] Quality ID # [id number]: Final reports with documentation of one or more dose reduction techniques (e.g., Au tomated exposure control, adjustment of the mA and/or kV according to patient size, use of iterative reconstruction technique) 2010 [employer]- All Rights Reserved Reading location - IP/workstation name: [email or web address]
[2018-03-18] MEDS ORDERED: TRAMADOL HCL 50 MG TABLET PO ONE (22:35)
[2018-03-18] MEDS ORDERED: LIDOCAINE 5% (700 MG) TRANSDERMAL ADH..PATCH TP ONE (22:35)
[2018-03-18] MEDS ORDERED: ACETAMINOPHEN 325 MG TABLET PO ONE (22:35)
--- NOTE | 2018-03-18 22:36 | ER Document Report ---
ED General - General Chief Complaint: Head Injury without LOC Stated Complaint: HEAD INJURY Time Seen by Provider: 03/18/18 20:05 Notes: Patient is a 43-year-old female without chronic medical problems who presents with neck pain. She states that this started after a ceiling tile fell and struck her on the head. She notes that immediately after this she developed diffuse neck spasming and pain that is now described as a spasming, aching, constant pain to her bilateral neck and bilateral trapezius muscles. She has not tried anything to improve the pain. Nothing worsens the pain other than moving her neck or touching the affected area. She denies any weakness, numbness, loss of consciousness, nausea or vomiting. No use of anticoagulation. She denies any additional injury. She has not contacted her general doctor regarding today's concerns. TRAVEL OUTSIDE OF THE [place] IN LAST 30 DAYS: No - Related Data Allergies/Adverse Reactions: codeine [Codeine] Allergy (Severe, Verified 12/05/17 18:43) Lock jaw oxycodone HCl [From Percocet] Allergy (Severe, Verified 12/05/17 18:43) Abdominal bleeding Penicillins Allergy (Severe, Verified 12/05/17 18:43) Lips swell simvastatin [From Zocor] Allergy (Severe, Verified 12/05/17 18:43) Anaphylaxis aspirin [Aspirin] Adverse Reaction (Intermediate, Verified 12/05/17 18:43) mushrooms Allergy (Unknown, Uncoded 12/05/17 18:43) Past Medical History - General Information source: Patient - Social History Smoking Status: Current Every Day Smoker Frequency of alcohol use: None Drug Abuse: None Lives with: Family Family History: CVA, DM, Hyperlipidemia, Hypertension, Malignancy Patient has suicidal ideation: No Patient has homicidal ideation: No - Past Medical History Cardiac Medical History: Reports: Hx Hypertension Denies: Hx Coronary Artery Disease, Hx Heart Attack Pulmonary Medical History: Denies: Hx Asthma, Hx Bronchitis, Hx COPD, Hx Pneumonia Neurological Medical History: 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 Denies: Hx Cerebrovascular Accident Endocrine Medical History: Reports: Hx Diabetes Mellitus Type 2 Renal/ Medical History: Denies: Hx Peritoneal Dialysis GI Medical History: Musculoskeletal Medical History: Denies Hx Arthritis Psychiatric Medical History: Reports: Hx Anxiety, Hx Bipolar Disorder, Hx Borderline Personality Disorder, Hx Depression Infectious Medical History: Past Surgical History: Reports: Hx Breast Surgery - abscess x2, Hx Cholecystectomy, Hx Genitourinary Surgery - cerclage, Hx Hysterectomy, Hx Orthopedic Surgery - R index tumor removed. Denies: Hx Pacemaker - Immunizations Immunizations up to date: Yes Hx Diphtheria, Pertussis, Tetanus Vaccination: Yes - 2006 Hx Pneumococcal Vaccination: 02/28/12 Review of Systems - Review of Systems Notes: Constitutional: Negative for fever. Eyes: Negative for visual changes. ENT: Negative for facial injury Cardiovascular: Negative for chest injury. Respiratory: Negative for shortness of breath. Gastrointestinal: Negative for abdominal injury. Genitourinary: Negative for genital injury Musculoskeletal: Positive for neck pain Skin: Negative for laceration/abrasions. Neurological: Positive for head injury. Physical Exam - Vital signs Notes: PHYSICAL EXAMINATION: GENERAL: Well-appearing, no acute distress. HEAD: Atraumatic, normocephalic. EYES: Pupils equal round and reactive to light, extraocular movements intact, sclera anicteric, conjunctiva are normal. ENT: nares patent, no oral pharyngeal trauma. No hemotympanum, no Walsh's sign , no raccoon eyes. NECK: No midline cervical spine tenderness. Patient able to move their head to 45 bilaterally without any discomfort. LUNGS: Breath sounds clear to auscultation bilaterally and equal. No wheezes rales or rhonchi. HEART: Regular rate and rhythm without murmurs. CHEST WALL: No ecchymosis over the chest wall. ABDOMEN: Soft, nontender, normoactive bowel sounds. No guarding, no rebound. No abdominal bruising EXTREMITIES: Normal range of motion, no pitting or edema. No long bone deformities. BACK: No midline spinal tenderness, step-offs, or deformities. NEUROLOGICAL: Face symmetric. Tongue protrudes midline. Extraocular motions intact. Pupils are 2 mm and equally reactive. Normal speech, normal gait. 5 out of 5 strength in both the distal and proximal upper and lower extremities bilaterally. Sensation is grossly intact throughout. Finger to nose testing normal. Pronator drift normal. PSYCH: Normal mood, normal affect. SKIN: Warm, Dry, normal turgor, no rashes or lesions noted. Course - Re-evaluation Re-evalutation: 03/18/18 22:36 Presentation of head trauma in an otherwise well-appearing patient. No focal neurologic deficits on exam, no evidence of basilar skull fracture on exam without evidence of hemotympanum, raccoon eyes, or periauricular hematoma. No papilledema. Patient is not on anticoagulation. GCS is 15. No loss of consciousness. No episodes of vomiting. Patient is therefore negative via [place] head CT criteria and CT imaging will not be obtained at this time. Patient states that after being hit on the head with the ceiling tile she did develop immediate diffuse neck pain. On neck examination she has diffuse midline cervical spine tenderness but no focal tenderness. She is able to range her neck 45 bilaterally. CTs of the cervical spine is unremarkable without evidence of acute fracture. Suspect likely muscular skeletal strain given examination. RMU motor and sensory distribution is intact bilaterally. There is no evidence of deformity or bulging on examination of the spine. At this time will discharge with return precautions and follow-up recommendations. Verbal discharge instructions given a the bedside and opportunity for questions given. Medication warnings reviewed. Patient is in agreement with this plan and has verbalized understanding of return precautions and the need for primary care follow-up in the next 24-72 hours. - Diagnostic Test Radiology reviewed: Reports reviewed Discharge - Discharge Clinical Impression: Neck pain Head trauma Qualifiers: Encounter type: initial encounter Qualified Code(s): S09.90XA - Unspecified injury of head, initial encounter Condition: Good Disposition: HOME, SELF-CARE Additional Instructions: Your CT scan is normal. Continue to take her Mobic as prescribed. Take Tylenol 1000 mg every 6 hours. Apply topical lidocaine that she can purchase [id number] to your neck. Continue to apply ice to the area is much your able. Please follow-up with your primary care physician if you do not have improving your symptoms in the next 1-2 weeks. Please return immediately if you develop weakness, numbness, spreading redness from the area, or any other symptoms that are concerning to you. Referrals: ORLANDO FAIR MD [Primary Care Provider] - Follow up as needed
== END 2018-03-18 22:40 | disposition home or self-care (01) ==
LOC: ER 19:35
DX: S09.90XA Unspecified injury of head, initial encounter (principal); M54.2 Cervicalgia; M54.6 Pain in thoracic spine; W22.8XXA Striking against or struck by other objects, initial encounter; I10 Essential (primary) hypertension; E11.9 Type 2 diabetes mellitus without complications
CPT/HCPCS: 99284; 72125; L0120; J3490

== ENCOUNTER 2018-06-08 18:54 | Emergency (ER) | payer SELFPAY ==
[2018-06-08 19:22] LABS: ABSOLUTE BASOPHILS # (AUTO) 0.1 10^3/uL (0.0-0.2); ABSOLUTE EOSINOPHILS # (AUTO) 0.2 10^3/uL (0.0-0.6); ABSOLUTE LYMPHOCYTES (AUTO) 4.9 10^3/uL (0.5-4.7); ABSOLUTE MONOCYTES (AUTO) 0.6 10^3/uL (0.1-1.4); ABSOLUTE NEUT (AUTO) 3.3 10^3/uL (1.7-8.2); BASOPHILS % (AUTO) 1.1 % (0-2); HEMATOCRIT 40.8 % (36.0-47.0); HEMOGLOBIN 13.7 g/dL (12.0-15.5); LYMPHOCYTES % (AUTO) 54.6 % (13-45); MEAN CORPUSCULAR HEMOGLOBIN 28.6 pg (27.0-33.4); MEAN CORPUSCULAR HGB CONC 33.6 g/dL (32.0-36.0); MEAN CORPUSCULAR VOLUME 85 fl (80-97); MONOCYTES % (AUTO) 6.3 % (3-13); PLATELET COUNT 321 10^3/uL (150-450); RED BLOOD COUNT 4.78 10^6/uL (3.72-5.28); RED CELL DISTRIBUTION WIDTH 15.7 % (11.5-14.0); TOTAL CELLS COUNTED % (AUTO) 100 %
[2018-06-08] MEDS ORDERED: NORMAL SALINE 1000 ML 1,000 ML IV ONE (19:38)
--- NOTE | 2018-06-08 19:43 | ER Document Report ---
ED General - General Chief Complaint: Fall Stated Complaint: DIZZINESS Time Seen by Provider: 06/08/18 19:20 Notes: Patient is a 43-year-old female that comes to the emergency department for chief complaint of a syncopal episode. Patient states she wants her friend to tell me the history, friend is at bedside, friend states that patient came over to her house because she was very anxious, patient took 10 mg of Valium for her anxiety, sometime later patient was complaining of feeling discomfort in her chest, shortness of breath, and lightheadedness, friend states she seem like she was going to fall forward and passed out so she grabbed onto her shirt and tried to ease her to the ground but she still hit her head on the ground. Friend states she could not wake her up for what felt like almost 2 minutes. Patient came by EMS, was given 324 mg of aspirin and nitroglycerin for the reported chest pain. Patient reports it hurts to move in her chest and she has a headache and neck pain. Patient states she has not eaten anything all day except for drinking Mountain Dew and drinking tea. Past medical history includes bipolar, depression, PTSD, type 2 diabetes, hypertension. She smokes, denies alcohol or recreational drugs. TRAVEL OUTSIDE OF THE [place] IN LAST 30 DAYS: No - Related Data Allergies/Adverse Reactions: codeine [Codeine] Allergy (Severe, Verified 06/08/18 18:56) Lock jaw oxycodone HCl [From Percocet] Allergy (Severe, Verified 06/08/18 18:56) Abdominal bleeding Penicillins Allergy (Severe, Verified 06/08/18 18:56) Lips swell simvastatin [From Zocor] Allergy (Severe, Verified 06/08/18 18:56) Anaphylaxis aspirin [Aspirin] Adverse Reaction (Intermediate, Verified 18 18:56) mushrooms Allergy (Unknown, Uncoded 06/08/18 18:56) Past Medical History - General Information source: Patient - Social History Smoking Status: Current Every Day Smoker Chew tobacco use (# tins/day): No Frequency of alcohol use: Social Drug Abuse: None Lives with: Friend Family History: CVA, DM, Hyperlipidemia, Hypertension, Malignancy Patient has suicidal ideation: No Patient has homicidal ideation: No - Past Medical History Cardiac Medical History: Reports: Hx Hypertension Denies: Hx Coronary Artery Disease, Hx Heart Attack Pulmonary Medical History: Denies: Hx Asthma, Hx Bronchitis, Hx COPD, Hx Pneumonia Neurological Medical History: 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 Denies: Hx Cerebrovascular Accident Endocrine Medical History: Reports: Hx Diabetes Mellitus Type 2 Renal/ Medical History: Denies: Hx Peritoneal Dialysis GI Medical History: Musculoskeletal Medical History: Denies Hx Arthritis Psychiatric Medical History: Reports: Hx Anxiety, Hx Bipolar Disorder - &anxiety , Hx Borderline Personality Disorder, Hx Depression Infectious Medical History: Past Surgical History: Reports: Hx Breast Surgery - abscess x2, Hx Cholecystectomy, Hx Genitourinary Surgery - cerclage, Hx Hysterectomy, Hx Orthopedic Surgery - R index tumor removed. Denies: Hx Pacemaker - Immunizations Immunizations up to date: Yes Hx Diphtheria, Pertussis, Tetanus Vaccination: Yes - 2006 Hx Pneumococcal Vaccination: 02/28/12 Review of Systems - Review of Systems Constitutional: No symptoms reported EENT: No symptoms reported Cardiovascular: See HPI Respiratory: See HPI Gastrointestinal: No symptoms reported Genitourinary: No symptoms reported Female Genitourinary: No symptoms reported Musculoskeletal: See HPI Skin: No symptoms reported Hematologic/Lymphatic: No symptoms reported Neurological/Psychological: See HPI Physical Exam - Vital signs Vitals: Resp Pulse Ox 13 100 06/08/18 19:31 06/08/18 19:31 - Notes Notes: GENERAL: Alert, interacts well. No acute distress. HEAD: Normocephalic, atraumatic. EYES: Pupils equal, round, and reactive to light. Extraocular movements intact. ENT: Oral mucosa moist, tongue midline. Oropharynx unremarkable. Airway patent. Nares patent, no nasal septal hematoma, TM's intact. NECK: Full range of motion. Supple. Trachea midline. LUNGS: Clear to auscultation bilaterally, no wheezes, rales, or rhonchi. No respiratory distress. HEART: Regular rate and rhythm. No murmur ABDOMEN: Soft, non-tender. Non-distended. Bowel sounds present in all 4 quadrants. GENITOURINARY: Deferred EXTREMITIES: Moves all 4 extremities spontaneously. No edema, normal radial and dorsalis pedis pulses bilaterally. No cyanosis. BACK: Complains of gentle palpation over the neck. No thoracic or lumbar midline tenderness. No saddle anesthesia, normal distal neurovascular exam. NEUROLOGICAL: Alert and oriented x3. Normal speech. [cranial nerves II through XII grossly intact]. PSYCH: Somewhat flat affect SKIN: Warm, dry, normal turgor. No rashes or lesions noted. Course - Re-evaluation Re-evalutation: EKG shows sinus rhythm at a rate of 80, QTc is 453, PA interval is 192, no T wave inversions or ST segment changes in consecutive leads. Chest x-ray unremarkable. CAT scan of the head and neck with no acute findings. CBC, chemistry unremarkable other than mild hypokalemia. Patient telling me that episode of anxiety, chest pain, shortness of breath, and lightheadedness started this morning. It is now 9:30 at night. Negative troponin. Based on her description of her event I suspect an anxiety component. I do not see any signs of trauma. On reevaluation patient states she needs something for and she wants to leave. She declines additional evaluation or management, declines potassium, states she is on a potassium supplement she can take. She states she would like something for anxiety, she states she will return for any concerning symptoms, these were discussed. Patient is going home with her friend. Patient has anxiety medications to take at home. She has with primary care and psychiatry follow-up. She is denying SI or HI. Unremarkable vital signs. Very well-appearing on examination. Stable at time of discharge. - Vital Signs Vital signs: Temp Pulse Resp BP Pulse Ox 97.6 F 20 130/88 H 100 06/08/18 22:00 06/08/18 22:01 06/08/18 22:01 06/08/18 22:01 - Laboratory Result Diagrams: 06/08/18 19:04 06/08/18 20:15 Laboratory results interpreted by me: 06/08/18 06/08/18 19:04 20:15 RDW 15.7 H Seg Neutrophils % 36.0 L Lymphocytes % 54.6 H Absolute Lymphocytes 4.9 H Potassium 3.3 L Creatine Kinase 280 H Discharge - Discharge Clinical Impression: Anxiety Episode of syncope Qualifiers: Syncope type: unspecified Qualified Code(s): R55 - Syncope and collapse Head injury Qualifiers: Encounter type: initial encounter Qualified Code(s): S09.90XA - Unspecified injury of head, initial encounter Chest pain Qualifiers: Chest pain type: unspecified Qualified Code(s): R07.9 - Chest pain, unspecified Condition: Stable Disposition: HOME, SELF-CARE Additional Instructions: Syncope (fainting or near-fainting) can occur from many different health problems. Or it can be a simple fainting spell requiring no treatment. It is safe for you to go home, but further evaluation will likely be necessary. Your work-up may include tests for internal bleeding, heart disease, medication problems, or near-strokes. Tests are not always required, however, depending on the nature of your problem. The warning signs of an impending faint include: dizziness, lightheadedness, nausea, hot flashes, tingling, and weakness. If this happens, lay down and put your feet up, then wait until all of these symptoms have passed before standing up again. If these episodes become recurrent, or if you develop chest pain, heart palpitations, mental confusion, blurred vision, or headache, then you should call the physician, or go to the emergency room. Post-Concussion Syndrome Post-concussion syndrome often follows a mild head injury. Dizziness, mild nausea, mild headache, trouble concentrating, and a general sense of "not being right" may persist for days or even for a week or two. This is a frequent complication of concussion. However, if the symptoms worsen, or new symptoms develop, you should be re-examined by the physician. There is no specific cure for post-concussion syndrome. You can take mild pain medication such as ibuprofen or acetaminophen. While you should not drive if you are dizzy, you can get back to your regular activities as quickly as the symptoms will allow. And while vigorous exercise may worsen the headache, mild physical activity often is helpful. Sitting and thinking about your symptoms will worsen them. If difficulties continue, you may need referral for special therapy to help you regain full mental function. Call the physician if you are worsening, or if symptoms are still present in one week. Report any new symptoms immediately. Head Injury Precautions At this point, there is no evidence that your head injury is serious. Observation is necessary, however. Limit activity for the first 24 hours. Bed rest is best. During the first 24 hours, check to see approximately every two to three hours that the patient is easily arousable, responds normally, and can perform common tasks such as walking without difficulty. Contact your doctor or go to the hospital if any of the following things occur: Persistent vomiting, difficulty in arousing the patient, worsening or continued headache, or failure to improve as expected. Head injuries can cause symptoms that persist for a few days or even a few weeks. Forms: Return to Work Referrals: ORLANDO FAIR MD [Primary Care Provider] - Follow up as needed
--- NOTE | 2018-06-08 20:15 | RADIOLOGY REPORT (SQ) ---
EXAM DESCRIPTION: CHEST SINGLE VIEW COMPLETED DATE/TIME: 06/08/2018 7:58 pm REASON FOR STUDY: chest pain COMPARISON: 04/15/2017. EXAM PARAMETERS: NUMBER OF VIEWS: One view. TECHNIQUE: Single frontal radiographic view of the chest acquired. RADIATION DOSE: NA LIMITATIONS: None. FINDINGS: LUNGS AND PLEURA: No opacities, masses or pneumothorax. No pleural effusion. MEDIASTINUM AND HILAR STRUCTURES: No masses. Contour normal. HEART AND VASCULAR STRUCTURES: Heart normal in size. Normal vasculature. BONES: No acute findings. HARDWARE: None in the chest. OTHER: No other significant finding. IMPRESSION: NO ACUTE RADIOGRAPHIC FINDING IN THE CHEST. TECHNICAL DOCUMENTATION: JOB ID: [id number] [employer]- All Rights Reserved Reading location - IP/workstation name: [email or web address]
[2018-06-08 21:00] LABS: ALANINE AMINOTRANSFERASE 25 U/L (9-52); ALBUMIN 3.7 g/dL (3.5-5.0); ALKALINE PHOSPHATASE 67 U/L (38-126); ANION GAP 8 (5-19); ASPARTATE AMINO TRANSFERASE 19 U/L (14-36); BILIRUBIN,DIRECT 0.2 mg/dL (0.0-0.4); BILIRUBIN,TOTAL 0.4 mg/dL (0.2-1.3); BLOOD UREA NITROGEN 9 mg/dL (7-20); CALCIUM 9.4 mg/dL (8.4-10.2); CARBON DIOXIDE 30 mmol/L (22-30); CHLORIDE 101 mmol/L (98-107); CREATINE KINASE 280 U/L (30-135); GLUCOSE 105 mg/dL (75-110); POTASSIUM 3.3 mmol/L (3.6-5.0); SODIUM 138.7 mmol/L (137-145); TOTAL PROTEIN 6.3 g/dL (6.3-8.2)
[2018-06-08 21:13] LABS: CREATINE KINASE MB 0.27 ng/mL (<4.55)
[2018-06-08 21:17] LABS: TROPONIN I < 0.012 ng/mL
--- NOTE | 2018-06-08 21:30 | RADIOLOGY REPORT (SQ) ---
EXAM DESCRIPTION: CT HEAD WITHOUT IV CONTRAST COMPLETED DATE/TME: 06/08/2018 19:38 CLINICAL HISTORY: 43 years Female head injury, LOC COMPARISON: None. TECHNIQUE: Contiguous axial CT images obtained through the brain without IV contrast. This exam was performed according to our department optimization program which includes automated exposure control, adjustment of the mA and/or kv according to patient size and/or use of iterative reconstruction technique. FINDINGS: The ventricles and sulci are within normal limits for the patient's age. No midline shift or mass effect. No masses identified. No acute intracranial hemorrhage. No fluid or significant mucosal thickening in the visualized paranasal sinuses. No depressed calvarial fractures. IMPRESSION: No acute intracranial abnormality is identified.
--- NOTE | 2018-06-08 21:31 | RADIOLOGY REPORT (SQ) ---
EXAM DESCRIPTION: CT CERVICAL SPINE WITHOUT IV CONTRAST COMPLETED DATE/TME: 06/08/2018 19:38 CLINICAL HISTORY: 43 years Female head injury, neck pain COMPARISON: None. TECHNIQUE: Contiguous axial images obtained through the cervical spine without IV contrast. Coronal and sagittal reformatted images obtained. This exam was performed according to our department optimization program which includes automated exposure control, adjustment of the mA and/or kv according to patient size and/or use of iterative reconstruction technique. FINDINGS: Vertebral body alignment is unremarkable. No acute fractures. Mild straightening of the normal lordosis. No significant central canal stenosis. Prevertebral soft tissues appear within normal limits. IMPRESSION: No acute cervical spinal fracture is identified.
[2018-06-08] MEDS ORDERED: LORAZEPAM 1 MG TABLET PO ONE (21:39)
[2018-06-08 22:08] VITALS: BP 130/88
--- NOTE | 2018-06-08 23:33 | EKG REPORT ---
SEVERITY:- NORMAL ECG - SINUS RHYTHM : Confirmed by: Bina Buck MD 08-Jun-2018 23:32:30
== END 2018-06-08 22:09 | disposition home or self-care (01) ==
LOC: ER 18:54
DX: R55 Syncope and collapse (principal); S09.90XA Unspecified injury of head, initial encounter; R51 Headache; M54.2 Cervicalgia; W18.39XA Other fall on same level, initial encounter; Y92.002 Bathroom of unspecified non-institutional (private) residence as the place of occurrence of the external cause; E87.6 Hypokalemia; F41.9 Anxiety disorder, unspecified; R07.9 Chest pain, unspecified; R06.02 Shortness of breath; E11.9 Type 2 diabetes mellitus without complications; I10 Essential (primary) hypertension; F17.200 Nicotine dependence, unspecified, uncomplicated; Z88.5 Allergy status to narcotic agent; Z88.0 Allergy status to penicillin; Z88.8 Allergy status to other drugs, medicaments and biological substances; Z91.018 Allergy to other foods
CPT/HCPCS: 93005; 99285; 96360; 36415; 82553; 82550; 84703; 85025; 80053; 84484; 71045; 70450; 72125; 93010; J7030

== ENCOUNTER 2018-07-06 00:50 | Emergency (ER) | payer SELFPAY ==
[2018-07-06] MEDS ORDERED: LIDOCAINE 4%/TETRACAINE 0.5%/EPI 0.18% 5 ML TOPICAL SOLN TOP ONE (01:50)
[2018-07-06] MEDS ORDERED: LIDOCAINE 1% INJ-PF (10 MG/ML) 30 ML SDV INJ ONE (01:50)
--- NOTE | 2018-07-06 01:55 | ER Document Report ---
ED General - General Chief Complaint: Mouth Injury Stated Complaint: MOUTH INJURY Time Seen by Provider: 07/06/18 01:44 Notes: Patient is a 43-year-old female who presents with complaint of lower lip laceration. Patient says she was having a panic attack. She then had to use the bathroom and ran to the bathroom and passed out falling and hitting the floor. She cut her lip. She says she does now have headache since hitting her head. She denies neck pain. She denies any other injuries. She says her teeth hurt some. Last tetanus shot was within the last 5 years. She is not on any blood thinning medications. She has not no other complaints at this time. She says she did take her Ativan today because of her panic attack. TRAVEL OUTSIDE OF THE [place] IN LAST 30 DAYS: No - Related Data Allergies/Adverse Reactions: codeine [Codeine] Allergy (Severe, Verified 06/08/18 18:56) Lock jaw oxycodone HCl [From Percocet] Allergy (Severe, Verified 06/08/18 18:56) Abdominal bleeding Penicillins Allergy (Severe, Verified 06/08/18 18:56) Lips swell simvastatin [From Zocor] Allergy (Severe, Verified 06/08/18 18:56) Anaphylaxis aspirin [Aspirin] Adverse Reaction (Intermediate, Verified 06/08/18 18:56) mushrooms Allergy (Unknown, Uncoded 06/08/18 18:56) Past Medical History - Social History Smoking Status: Unknown if Ever Smoked Frequency of alcohol use: None Drug Abuse: None Family History: CVA, DM, Hyperlipidemia, Hypertension, Malignancy - Past Medical History Cardiac Medical History: Reports: Hx Hypertension Denies: Hx Coronary Artery Disease, Hx Heart Attack Pulmonary Medical History: Denies: Hx Asthma, Hx Bronchitis, Hx COPD, Hx Pneumonia Neurological Medical History: 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 Denies: Hx Cerebrovascular Accident Endocrine Medical History: Reports: Hx Diabetes Mellitus Type 2 Renal/ Medical History: Denies: Hx Peritoneal Dialysis GI Medical History: Musculoskeletal Medical History: Denies Hx Arthritis Psychiatric Medical History: Reports: Hx Anxiety, Hx Bipolar Disorder - &anxiety, Hx Borderline Personality Disorder, Hx Depression Infectious Medical History: Past Surgical History: Reports: Hx Breast Surgery - abscess x2, Hx Cholecystectomy, Hx Genitourinary Surgery - cerclage, Hx Hysterectomy, Hx Orthopedic Surgery - R index tumor removed. Denies: Hx Pacemaker - Immunizations Immunizations up to date: Yes Hx Diphtheria, Pertussis, Tetanus Vaccination: Yes - 2006 Hx Pneumococcal Vaccination: 02/28/12 Review of Systems - Review of Systems Notes: My Normal Review Basic REVIEW OF SYSTEMS: CONSTITUTIONAL : Denies fever, chills, or sweats. Denies recent illness. EENT: Denies eye, ear, throat, or mouth pain or symptoms. Denies nasal or sinus congestion. Lip laceration CARDIOVASCULAR: Denies chest pain. RESPIRATORY: Denies cough, cold, or chest congestion. Denies shortness of breath, difficulty breathing, or wheezing. GASTROINTESTINAL: Denies abdominal pain. Denies nausea, vomiting, or diarrhea. MUSCULOSKELETAL: Denies neck or back pain or joint pain or swelling. SKIN: Denies rash or skin lesions. NEUROLOGICAL: Had a loss of consciousness. Has a headache. Denies weakness or paralysis or loss of use of either side. Denies problems with gait or speech. Denies sensory or motor loss. PSYCHIATRIC: Had anxiety tonight which has since resolved. Patient denies any suicidal ideations. ALL OTHER SYSTEMS REVIEWED AND NEGATIVE. Physical Exam - Vital signs Vitals: Temp Pulse Resp BP Pulse Ox 97.9 F 109 H 16 93/47 L 97 07/06/18 01:27 07/06/18 01:27 07/06/18 01:27 07/06/18 01:27 07/06/18 01:27 - Notes Notes: General Appearance: Well nourished, alert, cooperative, no acute distress, no obvious discomfort. Vitals: reviewed, See vital signs table. Head: Laceration of the lower lip that goes through the entire thickness of the lower lip. Laceration is slightly jagged on the anterior aspect. Eyes: PERRL, EOMI, Conjuctiva clear Mouth: No decreasd moisture Throat: No tonsillar inflammation, No airway obstruction, No lymphadenopathy Neck: Supple, no neck tenderness, No thyromegaly Lungs: No wheezing, No rales, No rhonci, No accessory muscle use, good air exchange bilaterally. Heart: Normal rate, Regular rythm, No murmur, no rub Abdomen: Normal BS, soft, No rigidity, No abdominal tenderness, No guarding, no rebound, no abdominal masses, no organomegaly Extremities: strength 5/5 in all extremities, good pulses in all extremities, unable to put all 4 extremities with full range of motion without causing any pain. Pain or swelling on exam of extremities. Skin: warm, dry, appropriate color, no rash Neuro: speech clear, oriented x 3, normal affect, responds appropriately to questions. Cranial nerves II through XII are intact. Distal sensation intact. Patient moves all extremities without difficulty. Course - Vital Signs Vital signs: Temp Pulse Resp BP Pulse Ox 97.9 F 109 H 16 93/47 L 97 07/06/18 01:27 07/06/18 01:27 07/06/18 01:27 07/06/18 01:27 07/06/18 01:27 - Laboratory Laboratory results interpreted by me: 07/06/18 01:46 POC Glucose 217 H Discharge - Discharge Clinical Impression: Minor head injury with loss of consciousness Qualifiers: Encounter type: initial encounter Qualified Code(s): S06.9X9A - Unspecified intracranial injury with loss of consciousness of unspecified duration, initial encounter Lip laceration Qualifiers: Encounter type: initial encounter Qualified Code(s): S01.511A - Laceration without foreign body of lip, initial encounter Condition: Good Disposition: HOME, SELF-CARE Additional Instructions: You have 2 dissolvable and 2 non-dissolvable sutures in your lip. You need to return to the ER in 4-5 days to have the non-dissolvable sutures removed. Please eat soft foods for until these stitches are removed. Please return to the ER if you have severe headaches, vomiting, fevers, or redness or signs of infection to your lip. Referrals: ORLANDO FAIR MD [Primary Care Provider] - Follow up as needed
--- NOTE | 2018-07-06 02:42 | RADIOLOGY REPORT (SQ) ---
EXAM DESCRIPTION: CT HEAD WITHOUT IV CONTRAST COMPLETED DATE/TME: 07/06/2018 01:53 CLINICAL HISTORY: 43 years, Female, headache COMPARISON: 06/08/2018 CT TECHNIQUE: 204 Images stored on PACS. All CT scanners at this facility use dose modulation, iterative reconstruction, and/or weight based dosing when appropriate to reduce radiation dose to as low as reasonably achievable (ALARA). [facility]: Dose Right [facility]: CareDose [facility]: Dose Right [facility]: Teradose 4D [facility]: [employer] LIMITATIONS: None. FINDINGS: The globes are intact. The paranasal sinuses and mastoid air cells are unremarkable. No displaced or depressed skull fracture. No intra or extra-axial hemorrhage. CT is limited for evaluation of acute infarct. No CT evidence for large or territorial acute infarct. No mass or midline shift. IMPRESSION: Unremarkable exam TECHNICAL DOCUMENTATION: Quality ID # 436: Final reports with documentation of one or more dose reduction techniques (e.g., Automated exposure control, adjustment of the mA and/or kV according to patient size, use of iterative reconstruction technique) copyright 2011 [employer]- All Rights Reserved
[2018-07-06 03:33] VITALS: BP 127/76
== END 2018-07-06 03:46 | disposition home or self-care (01) ==
LOC: ER 00:50
DX: S01.511A Laceration without foreign body of lip, initial encounter (principal); S06.9X9A Unspecified intracranial injury with loss of consciousness of unspecified duration, initial encounter; R51 Headache; W01.10XA Fall on same level from slipping, tripping and stumbling with subsequent striking against unspecified object, initial encounter; I10 Essential (primary) hypertension; E11.9 Type 2 diabetes mellitus without complications
CPT/HCPCS: 99283; 82962; 70450; J3490 ×2

== ENCOUNTER 2018-07-10 09:28 | Emergency (ER) | payer SELFPAY ==
[2018-07-10 09:35] VITALS: BP 133/88
--- NOTE | 2018-07-10 10:12 | ER Document Report ---
HPI - HPI Time Seen by Provider: 07/10/18 09:49 Pain Level: 1 Notes: Patient is a 43-year-old diabetic female who presents with chief complaint of request for suture removal. Patient had 2 absorbable sutures in 2 nylon sutures placed here in the emergency department [address] Ledesma. Patient reports that her lip is now infected and she has been placed on Bactrim by her primary care provider. Patient states that she is here to have the 2 nylon sutures removed. Patient denies any fever or chills. - CONSTITUTIONAL Constitutional: DENIES: Fever, Chills - REPRODUCTIVE Reproductive: DENIES: : Past Medical History - General Information source: Patient - Social History Smoking Status: Current Every Day Smoker Frequency of alcohol use: Rare Drug Abuse: None Family History: CVA, DM, Hyperlipidemia, Hypertension, Malignancy Patient has suicidal ideation: No Patient has homicidal ideation: No - Past Medical History Cardiac Medical History: Reports: Hx Hypertension Denies: Hx Coronary Artery Disease, Hx Heart Attack Pulmonary Medical History: Denies: Hx Asthma, Hx Bronchitis, Hx COPD, Hx Pneumonia Neurological Medical History: 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 Denies: Hx Cerebrovascular Accident Endocrine Medical History: Reports: Hx Diabetes Mellitus Type 2 Renal/ Medical History: Denies: Hx Peritoneal Dialysis GI Medical History: Musculoskeletal Medical History: Denies Hx Arthritis Psychiatric Medical History: Reports: Hx Anxiety, Hx Bipolar Disorder - &anxiety, Hx Borderline Personality Disorder, Hx Depression Infectious Medical History: Past Surgical History: Reports: Hx Breast Surgery - abscess x2, Hx Cholecystectomy, Hx Genitourinary Surgery - cerclage, Hx Hysterectomy, Hx Orthopedic Surgery - R index tumor removed. Denies: Hx Pacemaker - Immunizations Immunizations up to date: Yes Hx Diphtheria, Pertussis, Tetanus Vaccination: Yes - 2006 Hx Pneumococcal Vaccination: 02/28/12 Vertical Provider Document - CONSTITUTIONAL Notes: PHYSICAL EXAMINATION: GENERAL: Well-appearing, well-nourished and in no acute distress. HEAD: Atraumatic, normocephalic. EYES: Pupils equal round extraocular movements intact, conjunctiva are normal. ENT: Nares patent NECK: Normal range of motion LUNGS: No respiratory distress Musculoskeletal: Normal range of motion NEUROLOGICAL: Normal speech, normal gait. PSYCH: Normal mood, normal affect. SKIN: Warm, Dry, normal turgor, no rashes or lesions noted. Healing laceration noted to patient's bottom lip, one suture in place, yellow purulent drainage noted with foul odor. - INFECTION CONTROL TRAVEL OUTSIDE OF THE [place] IN LAST 30 DAYS: No Course - Re-evaluation Re-evalutation: Patient does have yellow greenish drainage coming from the laceration. There is only one nylon suture in place, this was removed. Patient encouraged to continue taking the Bactrim that her primary care provider placed her on. She states she has a follow-up appointment with her primary care provider in 3 days, I encouraged her to please keep this appointment so they can do a wound recheck. In the meanwhile patient encouraged to continue warm salt soaks to the area as well as adherence to her antibiotic regimen. - Vital Signs Vital signs: Temp Pulse Resp BP Pulse Ox 98.7 F 88 16 133/88 H 97 07/10/18 09:33 07/10/18 09:33 07/10/18 09:33 07/10/18 09:33 07/10/18 09:33 Discharge - Discharge Clinical Impression: Visit for suture removal, Encounter for wound re-check, Abscess Condition: Stable Disposition: HOME, SELF-CARE Additional Instructions: Please continue to take the Bactrim that your primary care provider placed you on. One suture was removed today, I do not see any other suture in the laceration. There does appear to be purulent drainage consistent with infection. Continue with the warm salt soaks 3-4 times daily, see her primary care provider Thursday or Thursday for wound recheck. Take the hydrocodone for severe pain only as prescribed. Return to the emergency department if you experience any worsening symptoms such as increased swelling of your lip, you develop a fever or any other symptoms that are concerning to you. Prescriptions: Hydrocodone Bit/Acetaminophen [Hydrocodon-Acetaminophen 5-325] 1 each PO Q4H #10 tablet Referrals: BUBBA LERNER PA-C [Primary Care Provider] - Follow up as needed
== END 2018-07-10 10:24 | disposition home or self-care (01) ==
LOC: ER 09:28
DX: S01.511D Laceration without foreign body of lip, subsequent encounter (principal); L08.9 Local infection of the skin and subcutaneous tissue, unspecified; X58.XXXD Exposure to other specified factors, subsequent encounter
CPT/HCPCS: 99282

== ENCOUNTER 2018-09-24 11:03 | Emergency (ER) | payer SELFPAY ==
--- NOTE | 2018-09-24 11:16 | ER Document Report ---
ED Medical Screen (RME) - General Chief Complaint: S/S of Possible Stroke Stated Complaint: FALL/HEAD INJURY Time Seen by Provider: 09/24/18 11:13 Primary Care Provider: BUBBA LERNER PA-C [Primary Care Provider] - Follow up as needed Mode of Arrival: Wheelchair Information source: Patient TRAVEL OUTSIDE OF THE [place] IN LAST 30 DAYS: No - HPI Patient complains to provider of: stroke alert Onset: Just prior to arrival - pt states she had a "pseudoseizure" and then fell and hit her head. Now with blurry vision and L arm numbness - Related Data Allergies/Adverse Reactions: codeine [Codeine] Allergy (Severe, Verified 07/10/18 09:29) Lock jaw oxycodone HCl [From Percocet] Allergy (Severe, Verified 07/10/18 09:29) Abdominal bleeding Penicillins Allergy (Severe, Verified 07/10/18 09:29) Lips swell simvastatin [From Zocor] Allergy (Severe, Verified 07/10/18 09:29) Anaphylaxis mushrooms Allergy (Unknown, Uncoded 07/10/18 09:29) Past Medical History - Social History Family history: Reviewed & Not Pertinent - Past Medical History Cardiac Medical History: Reports: Hx Hypertension Denies: Hx Coronary Artery Disease, Hx Heart Attack Pulmonary Medical History: Denies: Hx Asthma, Hx Bronchitis, Hx COPD, Hx Pneumonia Neurological Medical History: 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 Denies: Hx Cerebrovascular Accident Endocrine Medical History: Reports: Hx Diabetes Mellitus Type 2 Renal/ Medical History: Denies: Hx Peritoneal Dialysis GI Medical History: Musculoskeltal Medical History: Denies Hx Arthritis Psychiatric Medical History: Reports: Hx Anxiety, Hx Bipolar Disorder - &anxiety, Hx Borderline Personality Disorder, Hx Depression Infectious Medical History: Past Surgical History: Reports: Hx Breast Surgery - abscess x2, Hx Cholecystectomy, Hx Genitourinary Surgery - cerclage, Hx Hysterectomy, Hx Orthopedic Surgery - R index tumor removed. Denies: Hx Pacemaker - Immunizations Immunizations up to date: Yes Hx Diphtheria, Pertussis, Tetanus Vaccination: Yes - 2006 Physical Exam - Vital signs Vitals: Temp Pulse Resp BP Pulse Ox 98.6 F 99 16 134/80 H 98 09/24/18 11:13 09/24/18 11:13 09/24/18 11:13 09/24/18 11:13 09/24/18 11:13 Course - Vital Signs Vital signs: Temp Pulse Resp BP Pulse Ox 98.6 F 99 16 134/80 H 98 09/24/18 11:13 09/24/18 11:13 09/24/18 11:13 09/24/18 11:13 09/24/18 11:13 Doctor's Discharge - Discharge Referrals: BUBBA LERNER PA-C [Primary Care Provider] - Follow up as needed
--- NOTE | 2018-09-24 11:35 | RADIOLOGY REPORT (SQ) ---
EXAM DESCRIPTION: CT HEAD WITHOUT COMPLETED DATE/TIME: 09/24/2018 11:25 am REASON FOR STUDY: stroke alert COMPARISON: 07/06/2018 TECHNIQUE: Axial images acquired through the brain without intravenous contrast. Images reviewed wi th bone, brain and subdural windows. Additional sagittal and coronal reconstructions were generated. Images stored on PACS. All CT scanners at this facility use dose modulation, iterative reconstruction, and/or weight based d osing when appropriate to reduce radiation dose to as low as reasonably achievable (ALARA). [facility]: Dose Right [facility]: CareDose [facility]: Dose Right [facility]: Teradose 4D [facility]: Smart [employer] RADIATION DOSE: CT Rad equipment meets quality standard of care and radiation dose reduction techniq ues were employed. CTDIvol: 53.2 mGy. DLP: 1044 mGy-cm. mGy. LIMITATIONS: None. FINDINGS: VENTRICLES: Normal size and contour. CEREBRUM: No masses. No hemorrhage. No midline shift. No evidence for acute infarction. Normal gra y/white matter differentiation. No areas of low density in the white matter. CEREBELLUM: No masses. No hemorrhage. No alteration of density. No evidence for acute infarction. EXTRAAXIAL SPACES: No fluid collections. No masses. ORBITS AND GLOBE: No intra- or extraconal masses. Normal contour of globe without masses. CALVARIUM: No fracture. PARANASAL SINUSES: No fluid or mucosal thickening. SOFT TISSUES: No mass or hematoma. OTHER: No other significant finding. IMPRESSION: No CT evidence of acute stroke or hemorrhage. EVIDENCE OF ACUTE STROKE: NO. Findings were reported to Dr. Wallace by telephone, 1132 hours, 09/24/2018 COMMENT: Quality ID # [id number]: Final reports with documentation of one or more dose reduction techniques (e.g., Automated exposure control, adjustment of the mA and/or kV according to patient size, use of iterative reconstruction technique) TECHNICAL DOCUMENTATION: JOB ID: [id number]- All Rights Reserved Reading location - IP/workstation name: [email or web address]
--- NOTE | 2018-09-24 11:40 | RADIOLOGY REPORT (SQ) ---
EXAM DESCRIPTION: CHEST SINGLE VIEW COMPLETED DATE/TIME: 09/24/2018 11:28 am REASON FOR STUDY: weakness COMPARISON: 06/08/2018 EXAM PARAMETERS: NUMBER OF VIEWS: One view. TECHNIQUE: Single frontal radiographic view of the chest acquired. RADIATION DOSE: NA LIMITATIONS: None. FINDINGS: LUNGS AND PLEURA: No opacities, masses or pneumothorax. No pleural effusion. MEDIASTINUM AND HILAR STRUCTURES: No masses. Contour normal. HEART AND VASCULAR STRUCTURES: Heart normal in size. Normal vasculature. BONES: No acute findings. HARDWARE: None in the chest. OTHER: No other significant finding. IMPRESSION: NO ACUTE RADIOGRAPHIC FINDING IN THE CHEST. TECHNICAL DOCUMENTATION: JOB ID: [id number] [employer]- All Rights Reserved Reading location - IP/workstation name: [email or web address]
[2018-09-24] MEDS ORDERED: KETOROLAC TROMETHAMINE INJ/PF 30 MG/1 ML SDV IV ONE (11:48)
[2018-09-24] MEDS ORDERED: ONDANSETRON HCL INJ/PF 4 MG/2 ML SDV IV ONE (11:49)
--- NOTE | 2018-09-24 11:49 | ER Document Report ---
ED General - General Chief Complaint: S/S of Possible Stroke Stated Complaint: FALL/HEAD INJURY Time Seen by Provider: 09/24/18 11:13 Primary Care Provider: BUBBA LERNER PA-C [Primary Care Provider] - Follow up as needed Mode of Arrival: Wheelchair Notes: 43-year-old female patient history of pseudoseizures states that she had a pseudoseizure this morning. Fell backwards and hit her head. Complaining of a headache. Had some tingling in her left arm but states this happens every time she has a pseudoseizure. States that she is under a lot of stress. Takes approximately 40 mg of Valium a day. States that she was on Lamictal however is not on it anymore. Has recently been started on the new medications for which she is getting samples for. Denies any other injuries at this time. Does complain of a mild headache. TRAVEL OUTSIDE OF THE [place] IN LAST 30 DAYS: No - HPI Onset: Just prior to arrival Onset/Duration: Sudden Quality of pain: Achy Severity: Moderate Pain Level: 2 - Related Data Allergies/Adverse Reactions: codeine [Codeine] Allergy (Severe, Verified 07/10/18 09:29) Lock jaw oxycodone HCl [From Percocet] Allergy (Severe, Verified 07/10/18 09:29) Abdominal bleeding Penicillins Allergy (Severe, Verified 07/10/18 09:29) Lips swell simvastatin [From Zocor] Allergy (Severe, Verified 07/10/18 09:29) Anaphylaxis mushrooms Allergy (Unknown, Uncoded 07/10/18 09:29) Past Medical History - General Information source: Patient - Social History Smoking Status: Unknown if Ever Smoked Drug Abuse: None Lives with: Family Family History: CVA, DM, Hyperlipidemia, Hypertension, Malignancy Patient has suicidal ideation: No Patient has homicidal ideation: No - Past Medical History Cardiac Medical History: Reports: Hx Hypertension Denies: Hx Coronary Artery Disease, Hx Heart Attack Pulmonary Medical History: Denies: Hx Asthma, Hx Bronchitis, Hx COPD, Hx Pneumonia Neurological Medical History: 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 Denies: Hx Cerebrovascular Accident Endocrine Medical History: Reports: Hx Diabetes Mellitus Type 2 Renal/ Medical History: Denies: Hx Peritoneal Dialysis GI Medical History: Musculoskeletal Medical History: Denies Hx Arthritis Psychiatric Medical History: Reports: Hx Anxiety, Hx Bipolar Disorder - &anxiety, Hx Borderline Personality Disorder, Hx Depression Infectious Medical History: Past Surgical History: Reports: Hx Breast Surgery - abscess x2, Hx Cholecystectomy, Hx Genitourinary Surgery - cerclage, Hx Hysterectomy, Hx Orthopedic Surgery - R index tumor removed. Denies: Hx Pacemaker - Immunizations Immunizations up to date: Yes Hx Diphtheria, Pertussis, Tetanus Vaccination: Yes - 2006 Hx Pneumococcal Vaccination: 02/28/12 Review of Systems - Review of Systems Notes: Constitutional: denies: Chills, Diaphoresis, Fever, Malaise, Weakness EENT: denies: Eye discharge, Blurred vision, Tearing, Double vision, Nose congestion, Nose discharge, Throat swelling, Mouth pain Cardiovascular: denies: Palpitations, Heart racing, Orthopnea, Dyspnea, Chest pain Respiratory: denies: Cough, Hurts to breathe, Wheezing, Shortness of breath Gastrointestinal: denies: Abdominal pain, Diarrhea, Nausea, Vomiting, Black stools, bright red blood in stool Genitourinary: denies: Burning, Dysuria, Discharge, Frequency, Flank pain, Hematuria Musculoskeletal: denies: Joint pain, Joint swelling, Muscle pain, Muscle stiffness, back pain Hematologic/Lymphatic: denies: Anemia, Easy bleeding, Easy bruising, Blood clots Neurological/Psychological: denies: Confusion, Dementia, Depression, Loss of consciousness and complaining of a headache. Complaining of a seizure Skin: No lesions, no masses, no skin breakdown, no abscesses Physical Exam - Vital signs Vitals: Temp Pulse Resp BP Pulse Ox 98.6 F 99 16 134/80 H 98 09/24/18 11:13 09/24/18 11:13 09/24/18 11:13 09/24/18 11:13 09/24/18 11:13 Interpretation: Normal - General General appearance: Appears well, Alert - HEENT Head: Normocephalic, Atraumatic Eyes: Normal Pupils: PERRL - Respiratory Respiratory status: No respiratory distress Chest status: Nontender Breath sounds: Normal Chest palpation: Normal - Cardiovascular Rhythm: Regular Heart sounds: Normal auscultation Murmur: No - Abdominal Inspection: Normal Distension: No distension Bowel sounds: Normal Tenderness: Nontender Organomegaly: No organomegaly - Back Back: Normal, Nontender - Extremities General upper extremity: Normal inspection, Nontender, Normal color, Normal ROM, Normal temperature General lower extremity: Normal inspection, Nontender, Normal color, Normal ROM, Normal temperature, Normal weight bearing. No: Cortez's sign - Neurological Neuro grossly intact: Yes Cognition: Normal Orientation: AAOx4 [place] Coma Scale Eye Opening: Spontaneous [place] Coma Scale Verbal: Oriented Ben Coma Scale Motor: Obeys Commands Ben Coma Scale Total: 15 Speech: Normal Motor strength normal: LUE, RUE, LLE, RLE Sensory: Normal - Psychological Associated symptoms: Normal affect, Normal mood - Skin Skin Temperature: Warm Skin Moisture: Dry Skin Color: Normal Course - Re-evaluation Re-evalutation: 09/24/18 13:34 Labs are fairly unremarkable. CT head unremarkable. Chest x-ray unremarkable. More likely this represents patient's pseudoseizures. Nothing further at this time. Will DC in stable condition. 09/24/18 13:35 Laboratory 09/24/18 09/24/18 09/24/18 11:35 11:44 11:44 WBC 6.6 RBC 4.61 Hgb 13.5 Hct 39.5 MCV 86 MCH 29.3 MCHC 34.2 RDW 15.4 H Plt Count 286 Seg Neutrophils % 48.7 Lymphocytes % 40.9 Monocytes % 6.3 Eosinophils % 3.1 Basophils % 1.0 Absolute Neutrophils 3.2 Absolute Lymphocytes 2.7 Absolute Monocytes 0.4 Absolute Eosinophils 0.2 Absolute Basophils 0.1 Sodium 135.7 L Potassium 3.6 Chloride 101 Carbon Dioxide 27 Anion Gap 8 BUN 10 Creatinine 0.79 Est GFR ( Amer) > 60 Est GFR (Non-Af Amer) > 60 Glucose 211 H POC Glucose 222 H Calcium 9.7 Total Bilirubin 0.4 Direct Bilirubin 0.3 Neonat Total Bilirubin Not Reportable Neonat Direct Bilirubin Not Reportable Neonat Indirect Bili Not Reportable AST 23 ALT 25 Alkaline Phosphatase 64 Creatine Kinase 66 CK-MB (CK-2) Troponin I Total Protein 6.7 Albumin 3.8 09/24/18 11:44 WBC RBC Hgb Hct MCV MCH MCHC RDW Plt Count Seg Neutrophils % Lymphocytes % Monocytes % Eosinophils % Basophils % Absolute Neutrophils Absolute Lymphocytes Absolute Monocytes Absolute Eosinophils Absolute Basophils Sodium Potassium Chloride Carbon Dioxide Anion Gap BUN Creatinine Est GFR ( Amer) Est GFR (Non-Af Amer) Glucose POC Glucose Calcium Total Bilirubin Direct Bilirubin Neonat Total Bilirubin Neonat Direct Bilirubin Neonat Indirect Bili AST ALT Alkaline Phosphatase Creatine Kinase CK-MB (CK-2) < 0.22 Troponin I < 0.012 Total Protein Albumin Head CT 09/24/18 11:13 IMPRESSION: No CT evidence of acute stroke or hemorrhage. EVIDENCE OF ACUTE STROKE: NO. Findings were reported to Dr. Wallace by telephone, 1132 hours, 09/24/2018 Chest X-Ray 09/24/18 11:21 IMPRESSION: NO ACUTE RADIOGRAPHIC FINDING IN THE CHEST. 09/24/18 14:39 Of note patient did ask for some pain medication at discharge however I have refused based on the fact that she takes a large amount of benzodiazepines. I explained to her the risks of prescribing her narcotics along with benzodiazepines. Patient seemed to understand so proceeded with discharge. - Vital Signs Vital signs: Temp Pulse Resp BP Pulse Ox 98.0 F 99 15 112/86 H 94 09/24/18 13:43 09/24/18 11:13 09/24/18 13:42 09/24/18 13:43 09/24/18 13:42 - Laboratory Result Diagrams: 09/24/18 11:44 09/24/18 11:44 Laboratory results interpreted by me: 09/24/18 09/24/18 09/24/18 11:35 11:44 11:44 RDW 15.4 H Sodium 135.7 L Glucose 211 H POC Glucose 222 H - EKG Interpretation by Pr EKG shows normal: Sinus rhythm, [place], Intervals, QRS Complexes, ST-T Waves Discharge - Discharge Clinical Impression: Pseudoseizure Closed head injury Qualifiers: Encounter type: initial encounter Qualified Code(s): S09.90XA - Unspecified injury of head, initial encounter Condition: Good Disposition: HOME, SELF-CARE Instructions: Head Injury Precautions ([facility]), Seizure, Known Epileptic ([facility]) Forms: Return to Work Referrals: BUBBA LERNER PA-C [Primary Care Provider] - Follow up as needed
[2018-09-24 11:52] LABS: ABSOLUTE BASOPHILS # (AUTO) 0.1 10^3/uL (0.0-0.2); ABSOLUTE EOSINOPHILS # (AUTO) 0.2 10^3/uL (0.0-0.6); ABSOLUTE LYMPHOCYTES (AUTO) 2.7 10^3/uL (0.5-4.7); ABSOLUTE MONOCYTES (AUTO) 0.4 10^3/uL (0.1-1.4); ABSOLUTE NEUT (AUTO) 3.2 10^3/uL (1.7-8.2); EOSINOPHILS % (AUTO) 3.1 % (0-6); HEMATOCRIT 39.5 % (36.0-47.0); HEMOGLOBIN 13.5 g/dL (12.0-15.5); LYMPHOCYTES % (AUTO) 40.9 % (13-45); MEAN CORPUSCULAR HEMOGLOBIN 29.3 pg (27.0-33.4); MEAN CORPUSCULAR HGB CONC 34.2 g/dL (32.0-36.0); MEAN CORPUSCULAR VOLUME 86 fl (80-97); MONOCYTES % (AUTO) 6.3 % (3-13); PLATELET COUNT 286 10^3/uL (150-450); RED BLOOD COUNT 4.61 10^6/uL (3.72-5.28); RED CELL DISTRIBUTION WIDTH 15.4 % (11.5-14.0); SEGMENTED NEUTROPHILS % (AUTO) 48.7 % (42-78); TOTAL CELLS COUNTED % (AUTO) 100 %; WHITE BLOOD COUNT 6.6 10^3/uL (4.0-10.5)
[2018-09-24 12:12] LABS: ALANINE AMINOTRANSFERASE 25 U/L (9-52); ALBUMIN 3.8 g/dL (3.5-5.0); ALKALINE PHOSPHATASE 64 U/L (38-126); ANION GAP 8 (5-19); ASPARTATE AMINO TRANSFERASE 23 U/L (14-36); BILIRUBIN,DIRECT 0.3 mg/dL (0.0-0.4); BILIRUBIN,TOTAL 0.4 mg/dL (0.2-1.3); BLOOD UREA NITROGEN 10 mg/dL (7-20); CALCIUM 9.7 mg/dL (8.4-10.2); CARBON DIOXIDE 27 mmol/L (22-30); CHLORIDE 101 mmol/L (98-107); CREATINE KINASE 66 U/L (30-135); GLUCOSE 211 mg/dL (75-110); POTASSIUM 3.6 mmol/L (3.6-5.0); SODIUM 135.7 mmol/L (137-145); TOTAL PROTEIN 6.7 g/dL (6.3-8.2)
[2018-09-24] MEDS ORDERED: HYDROCODONE/ACETAMINOPHEN 5-325 MG TABLET PO ONE (12:28)
[2018-09-24 12:30] LABS: CREATINE KINASE MB < 0.22 ng/mL (<4.55); TROPONIN I < 0.012 ng/mL
[2018-09-24 13:45] VITALS: BP 112/86
--- NOTE | 2018-09-24 20:51 | EKG REPORT ---
SEVERITY:- NORMAL ECG - SINUS RHYTHM : Confirmed by: Bina Buck MD 24-Sep-2018 20:51:03
== END 2018-09-24 14:01 | disposition home or self-care (01) ==
LOC: ER 11:03
DX: F44.5 Conversion disorder with seizures or convulsions (principal); S09.90XA Unspecified injury of head, initial encounter; R51 Headache; W19.XXXA Unspecified fall, initial encounter; R20.2 Paresthesia of skin; I10 Essential (primary) hypertension; E11.9 Type 2 diabetes mellitus without complications; F41.9 Anxiety disorder, unspecified; Z79.899 Other long term (current) drug therapy; Z88.5 Allergy status to narcotic agent; Z88.0 Allergy status to penicillin; Z88.8 Allergy status to other drugs, medicaments and biological substances; Z91.018 Allergy to other foods
CPT/HCPCS: 93005; 99285; 96374; 96375; 36415; 82553; 82962; 82550; 85025; 80053; 84484; 71045; 70450; 93010; J1885; J2405

== ENCOUNTER → 2018-11-03 | Outpatient (CLI) | payer MEDICAID ==
--- NOTE | 2018-11-03 11:04 | WOMENS IMAGING REPORT ---
EXAM DESCRIPTION: BILAT SCREENING MAMMO W/CAD COMPLETED DATE/TIME: 11/03/2018 10:30 am REASON FOR STUDY: ROUTINE BILATERAL SCREENING;Z12.31 Z12.31 ENCNTR SCREEN MAMMOGRAM FOR MALIGNANT N EOPLASM OF DARLIN COMPARISON: Multiple since 2014 TECHNIQUE: Standard craniocaudal and mediolateral oblique views of each breast recorded using [employer] l acquisition. LIMITATIONS: None. FINDINGS: No masses, calcifications or architectural distortion. No areas of suspicion. Read with the assistance of CAD. .OM - R2 Pattern Chain Builder Version 9.2 IMPRESSION: NORMAL MAMMOGRAM. BIRADS 1. BREAST DENSITY: b. There are scattered areas of fibroglandular density. BIRAD: 1 NEGATIVE RECOMMENDATION: ROUTINE SCREENING COMMENT: The patient has been notified of the results by letter per MQSA requirements. Additional no tification policies are in place for contacting patient with suspicious or incomplete findings. Quality ID #[id number]: The [employer] recommends an annual screening mammogram for women aged 40 years or over. This facility utilizes a reminder system to ensure that all patients receive reminder letters, and/or direct phone calls for appointments. This includes reminders for routine scr eening mammograms, diagnostic mammograms, or other Breast Imaging Interventions when appropriate. Th is patient will be placed in the appropriate reminder system. TECHNICAL DOCUMENTATION: FINDING NUMBER: (1) ASSESSMENT: (1) JOB ID: [id number] [employer]- All Rights Reserved Reading location - IP/workstation name: [email or web address]
== END ==
LOC: WI 10:03
PROVIDERS: ATTEND Nurse Practitioner Family
DX: Z12.31 Encounter for screening mammogram for malignant neoplasm of breast (principal)
CPT/HCPCS: 77067

== ENCOUNTER 2018-12-10 23:25 | Emergency (ER) | payer MEDICAID ==
--- NOTE | 2018-12-11 00:03 | ER Document Report ---
ED General - General Chief Complaint: Seizure Stated Complaint: POSSIBLE SEIZURES Time Seen by Provider: 12/10/18 23:26 Primary Care Provider: JADYN NIÑO FNP-C [Primary Care Provider] - Follow up as needed Notes: 43-year-old female presents the emergency department complaining of seizing intermittently today. States that she has a history of pseudoseizures diagnosed 5 years ago by her psychiatrist however she usually just passes out however today she started having shaking during these episodes. Patient states that she has done this intermittently at least 3 times today. States that she now feels dizzy and her whole body hurts. Denies any injury during these episodes. Patient states she is being worked up for possible seizures by a specialist near here, she does not remember his name. Patient states she is scheduled for an EEG and an MRI but has not yet had these. Patient is not currently taking any medications for pseudoseizures. Patient was wheeled back to the room in the emergency department shaking. TRAVEL OUTSIDE OF THE [place] IN LAST 30 DAYS: No - Related Data Allergies/Adverse Reactions: codeine [Codeine] Allergy (Severe, Verified 12/11/18 00:37) Lock jaw oxycodone HCl [From Percocet] Allergy (Severe, Verified 12/11/18 00:37) Abdominal bleeding Penicillins Allergy (Severe, Verified 12/11/18 00:37) Lips swell simvastatin [From Zocor] Allergy (Severe, Verified 12/11/18 00:37) Anaphylaxis mushrooms Allergy (Unknown, Uncoded 12/11/18 00:37) Past Medical History - General Information source: Patient, Relative - Daughter at bedside - Social History Smoking Status: Never Smoker Chew tobacco use (# tins/day): No Frequency of alcohol use: Rare Drug Abuse: None Family History: CVA, DM, Hyperlipidemia, Hypertension, Malignancy - Past Medical History Cardiac Medical History: Reports: Hx Hypertension Denies: Hx Coronary Artery Disease, Hx Heart Attack Pulmonary Medical History: Denies: Hx Asthma, Hx Bronchitis, Hx COPD, Hx Pneumonia Neurological Medical History: Reports: Other - Pseudoseizures, passes out from stress.. Denies: Hx Cerebrovascular Accident Endocrine Medical History: Reports: Hx Diabetes Mellitus Type 2 Renal/ Medical History: Denies: Hx Peritoneal Dialysis GI Medical History: Musculoskeletal Medical History: Denies Hx Arthritis Psychiatric Medical History: Reports: Hx Anxiety, Hx Bipolar Disorder - &anxiety, Hx Borderline Personality Disorder, Hx Depression, Other - Pseudoseizu res. Infectious Medical History: Past Surgical History: Reports: Hx Breast Surgery - abscess x2, Hx Cholecystectomy, Hx Genitourinary Surgery - cerclage, Hx Hysterectomy, Hx Orthopedic Surgery - R index tumor removed. Denies: Hx Pacemaker - Immunizations Immunizations up to date: Yes Hx Diphtheria, Pertussis, Tetanus Vaccination: Yes - 2006 Hx Pneumococcal Vaccination: 02/28/12 Review of Systems - Review of Systems Constitutional: No symptoms reported EENT: No symptoms reported Cardiovascular: See HPI, Dizziness Respiratory: No symptoms reported Gastrointestinal: See HPI, Nausea Genitourinary: No symptoms reported Neurological/Psychological: See HPI -: Yes All other systems reviewed and negative Physical Exam - Vital signs Vitals: Temp Pulse Resp BP Pulse Ox 98 F 97 20 146/88 H 100 12/10/18 23:27 12/10/18 23:27 12/10/18 23:27 12/10/18 23:27 12/10/18 23:27 - Notes Notes: When patient is wheeled back into the room she is sitting upright in the wheelchair, slowly rotating her head from left to right, eyes are closed, arms are resting on the armrests of the wheelchair, small amount of shaking noted to the rest of her body, no tonic-clonic movements, body is not stiff. Within 30 seconds of being wheeled into the room she opens her eyes, introduces herself and is able to stand up and pivot and sit in the bed. No postictal state noted. Exam is as follows: GENERAL: Alert, interacts well. No acute distress. HEAD: Normocephalic, atraumatic EYES: Pupils equal, round and reactive to light, extraocular movements intact. ENT: Oral mucosa moist, tongue midline. NECK: Full range of motion, supple, trachea midline. LUNGS: Clear to auscultation bilaterally, no wheezes, rales or rhonchi, no res piratory distress. HEART: Regular rate and rhythm, no murmurs, gallops, rubs. ABDOMEN: Soft, nontender, nondistended, bowel sounds present in all 4 quadrants. EXTREMITIES: Moves all 4 extremities spontaneously, no edema, radial and dorsalis pedis pulses 2/4 bilaterally. No cyanosis. NEUROLOGICAL: Alert and oriented x3, normal speech, cranial nerves II through XII grossly intact, biceps and patellar DTRs 2+ bilaterally. Bmwkhg-kz-uedg and syii-ja-ywdd test intact. 5 out of 5 muscle strength in all 4 extremities. PSYCH: Normal mood, normal affect. SKIN: Warm, Dry, normal turgor, no rashes or lesions noted. Course - Re-evaluation Re-evalutation: 12/11/18 00:11 Discussed with patient and daughter that these do not appear consistent with epileptiform seizures, patient did not have a postictal state. Reassured patien t that with the we will keep her on a monitor. Approximately 10 minutes later the patient had a second episode during which she slowly rotated her head to the left into the right but otherwise her body was not moving nor was it stiffened. This lasted approximately a minute and then she was able to open her eyes and answer questions. Patient never stopped breathing, did not become tachycardic or tachypneic during the episode. Patient will have blood work checked and a CT scan of the head checked as this is different from her usual pseudoseizure pattern. 12/11/18 01:41 CT scan of the head does not show any acute process, CBC unremarkable, CMP grossly unremarkable, it does have slightly high CO2 and slightly elevated glucose but this is nonfasting and she is a diabetic, alcohol level is u ndetectable, EKG is nonischemic. Patient's episodes are not consistent with epileptiform seizures, they are more consistent with pseudoseizures. Patient has had this diagnosis for 5 years, she has had 2 episodes in the emergency department neither of which resulted in any change in vital signs are any signs of respiratory compromise. At present I feel patient is safe to be discharged to home with family, no indication for Diastat. Patient is already undergoing work-up with a neurologist as an outpatient. - Vital Signs Vital signs: Temp Pulse Resp BP Pulse Ox 98 F 97 22 H 126/84 H 100 12/11/18 00:13 12/10/18 23:27 12/11/18 01:01 12/11/18 01:01 12/11/18 01:01 - Laboratory Result Diagrams: 12/10/18 23:49 12/10/18 23:49 Laboratory results interpreted by me: 12/10/18 12/10/18 23:49 23:49 RDW 14.9 H Seg Neutrophils % 35.6 L Lymphocytes % 52.7 H Chloride 96 L Carbon Dioxide 31 H Glucose 130 H - EKG Interpretation by Me Additional EKG results interpreted by me: 12/11/18 01:41 EKG shows sinus rhythm at a rate of 91, normal axis, normal intervals, no ST segment elevations or depressions, there are T wave inversions in lead III and flattening in aVF per my interpretation. Discharge - Discharge Clinical Impression: Pseudoseizures Condition: Stable Disposition: HOME, SELF-CARE Additional Instructions: Today we did not find any abnormalitites on your work-up and your CT scan of the head was normal. Today your shaking episodes are not consistent with epileptiform seizures, however it is important to continue to follow-up with y our neurologist for a thorough seizure work-up including an EEG and an MRI. I suspect today's symptoms are a continuation of your pseudoseizures. You should not swim, drive or participate in any activities where you would come to harm if you lost consciousness until you are cleared by your neurologist. Please return to the emergency department for any new or concerning symptoms. Referrals: JADYN NIÑO FNP-C [Primary Care Provider] - Follow up as needed ALEXIS BREWER MD [NO LOCAL MD] - Follow up as needed
--- NOTE | 2018-12-11 00:31 | RADIOLOGY REPORT (SQ) ---
EXAM DESCRIPTION: CT HEAD WITHOUT IV CONTRAST COMPLETED DATE/TME: 12/10/2018 23:58 CLINICAL HISTORY: shaking episodes COMPARISON: None Available. TECHNIQUE: Contiguous axial images of the brain were obtained without the administration of intravenous contrast. This exam was performed according to our departmental dose-optimization program, which includes automated exposure control, adjustment of the mA and/or kV according to patient size and/or use of iterative reconstruction technique. FINDINGS: There is no acute intracranial hemorrhage or mass effect. Ventricular system is within normal limits. There is adequate travis-white matter differentiation. There is no skull fracture. The visualized paranasal sinuses and mastoid air cells are within normal limits. IMPRESSION: No acute intracranial abnormalities.
[2018-12-11 00:34] LABS: ABSOLUTE BASOPHILS # (AUTO) 0.1 10^3/uL (0.0-0.2); ABSOLUTE EOSINOPHILS # (AUTO) 0.2 10^3/uL (0.0-0.6); ABSOLUTE LYMPHOCYTES (AUTO) 4.6 10^3/uL (0.5-4.7); ABSOLUTE MONOCYTES (AUTO) 0.7 10^3/uL (0.1-1.4); ABSOLUTE NEUT (AUTO) 3.1 10^3/uL (1.7-8.2); BASOPHILS % (AUTO) 1.1 % (0-2); EOSINOPHILS % (AUTO) 2.4 % (0-6); HEMATOCRIT 39.7 % (36.0-47.0); HEMOGLOBIN 13.3 g/dL (12.0-15.5); LYMPHOCYTES % (AUTO) 52.7 % (13-45); MEAN CORPUSCULAR HEMOGLOBIN 29.1 pg (27.0-33.4); MEAN CORPUSCULAR HGB CONC 33.4 g/dL (32.0-36.0); MEAN CORPUSCULAR VOLUME 87 fl (80-97); MONOCYTES % (AUTO) 8.2 % (3-13); PLATELET COUNT 289 10^3/uL (150-450); RED BLOOD COUNT 4.57 10^6/uL (3.72-5.28); RED CELL DISTRIBUTION WIDTH 14.9 % (11.5-14.0); SEGMENTED NEUTROPHILS % (AUTO) 35.6 % (42-78); TOTAL CELLS COUNTED % (AUTO) 100 %; WHITE BLOOD COUNT 8.8 10^3/uL (4.0-10.5)
[2018-12-11 01:25] LABS: ALANINE AMINOTRANSFERASE 46 U/L (9-52); ALBUMIN 4.1 g/dL (3.5-5.0); ALKALINE PHOSPHATASE 61 U/L (38-126); ANION GAP 10 (5-19); ASPARTATE AMINO TRANSFERASE 30 U/L (14-36); BILIRUBIN,DIRECT 0.3 mg/dL (0.0-0.4); BILIRUBIN,TOTAL 0.3 mg/dL (0.2-1.3); BLOOD UREA NITROGEN 17 mg/dL (7-20); CALCIUM 10.1 mg/dL (8.4-10.2); CARBON DIOXIDE 31 mmol/L (22-30); CHLORIDE 96 mmol/L (98-107); GLUCOSE 130 mg/dL (75-110); POTASSIUM 3.7 mmol/L (3.6-5.0); SODIUM 137.1 mmol/L (137-145); TOTAL PROTEIN 6.7 g/dL (6.3-8.2)
[2018-12-11 01:27] LABS: ALCOHOL < 10 mg/dL (NONE DETECTED)
[2018-12-11 02:21] VITALS: BP 128/80
== END 2018-12-11 02:27 | disposition home or self-care (01) ==
LOC: ER 23:25
DX: F44.5 Conversion disorder with seizures or convulsions (principal); R42 Dizziness and giddiness; I10 Essential (primary) hypertension; E11.9 Type 2 diabetes mellitus without complications; R11.0 Nausea; Z88.5 Allergy status to narcotic agent; Z88.0 Allergy status to penicillin; Z88.8 Allergy status to other drugs, medicaments and biological substances; Z91.018 Allergy to other foods
CPT/HCPCS: 36415; 70450; 80053; 80307; 85025; 99284

== ENCOUNTER → 2018-12-18 | Outpatient (CLI) | payer MEDICAID ==
--- NOTE | 2018-12-18 12:41 | RADIOLOGY REPORT (SQ) ---
EXAM DESCRIPTION: MRI HEAD COMBO COMPLETED DATE/TIME: 12/18/2018 10:56 am REASON FOR STUDY: (R56.9)UNSPECIFIED CONVULSIONS R56.9 UNSPECIFIED CONVULSIONS COMPARISON: None. TECHNIQUE: Multiplanar imaging includes noncontrasted T1, T2, FLAIR, diffusion with ADC map and post gadolinium contrast T1 sequences. MP rage. Images stored on PACS. CONTRAST TYPE AND DOSE: 20 mL Dotarem. RENAL FUNCTION: Not indicated. ACR Type II contrast agent associated with few, if any, unconfounded cases of NSF LIMITATIONS: None. FINDINGS: ANATOMY: No anomalies. Normal vascular flow voids. Pituitary fossa normal. CSF SPACES: Normal in size and contour. No hemorrhage. CEREBRUM: Sulci and gyri normal in size and contour. Normal white matter signal on FLAIR imaging. No evidence of hemorrhage, mass, or extraaxial fluid collection. No abnormal enhancement post contrast. POSTERIOR FOSSA: No signal alteration. No hemorrhage. No edema, masses, or mass effect. Internal yola tory canals, cerebellopontine angles, mastoids normal. No enhancing lesions. No abnormal enhancement post contrast. DIFFUSION IMAGING: Negative for acute or subacute infarction. ORBITS: No masses. Globes normal. PARANASAL SINUSES: No fluid levels. Mucosa normal. OTHER: No other significant finding. IMPRESSION: NORMAL MRI OF THE BRAIN WITHOUT AND WITH INTRAVENOUS GADOLINIUM CONTRAST. EVIDENCE OF ACUTE STROKE: NO. TECHNICAL DOCUMENTATION: JOB ID: [id number] [employer]- All Rights Reserved Reading location - IP/workstation name: [email or web address]
== END ==
LOC: RAD 10:11
PROVIDERS: ATTEND Specialist
DX: R56.9 Unspecified convulsions (principal)
CPT/HCPCS: 70553; A9576

== ENCOUNTER 2019-03-22 11:33 | Emergency (ER) | payer MEDICAID, OTHER ==
--- NOTE | 2019-03-22 11:57 | ER Document Report ---
ED Medical Screen (RME) - General Stated Complaint: POSSIBLE SEZIURE Time Seen by Provider: 03/22/19 11:52 Primary Care Provider: ALEXIS BREWER MD [Primary Care Provider] - Follow up as needed Mode of Arrival: Wheelchair Information source: Patient Notes: This 44-year-old female with history of seizures presents emergency department post seizure. Reports she was just walking in the [place] when she had a seizure hit her head when she fell. She denies symptoms such as fever vomiting diarrhea. Was not incontinent of urine. Reports Dr. Lay that is her neurologist and she takes Topamax as prescribed. I have greeted and performed a rapid initial assessment of this patient. A comprehensive ED assessment and evaluation of the patient, analysis of test results and completion of the medical decision making process will be conducted by additional ED providers. Dictation of this chart was performed using voice recognition software; therefore, there may be some unintended grammatical errors. TRAVEL OUTSIDE OF THE [place] IN LAST 30 DAYS: No - Related Data Allergies/Adverse Reactions: codeine [Codeine] Allergy (Severe, Verified 03/22/19 11:51) Lock jaw oxycodone HCl [From Percocet] Allergy (Severe, Verified 03/22/19 11:51) Abdominal bleeding Penicillins Allergy (Severe, Verified 03/22/19 11:51) Lips swell simvastatin [From Zocor] Allergy (Severe, Verified 03/22/19 11:51) Anaphylaxis mushrooms Allergy (Unknown, Uncoded 03/22/19 11:51) Past Medical History - Social History Family history: Reviewed & Not Pertinent - Past Medical History Cardiac Medical History: Reports: Hx Hypertension Denies: Hx Coronary Artery Disease, Hx Heart Attack Pulmonary Medical History: Denies: Hx Asthma, Hx Bronchitis, Hx COPD, Hx Pneumonia Neurological Medical History: 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 Denies: Hx Cerebrovascular Accident Endocrine Medical History: Reports: Hx Diabetes Mellitus Type 2 Renal/ Medical History: Denies: Hx Peritoneal Dialysis GI Medical History: Musculoskeltal Medical History: Denies Hx Arthritis Psychiatric Medical History: Reports: Hx Anxiety, Hx Bipolar Disorder - &anxiety, Hx Borderline Personality Disorder, Hx Depression Infectious Medical History: Past Surgical History: Reports: Hx Breast Surgery - abscess x2, Hx Cholecystectomy, Hx Genitourinary Surgery - cerclage, Hx Hysterectomy, Hx Orthopedic Surgery - R index tumor removed. Denies: Hx Pacemaker - Immunizations Immunizations up to date: Yes Hx Diphtheria, Pertussis, Tetanus Vaccination: Yes - 2006 Physical Exam - Vital signs Vitals: Temp Pulse Resp BP Pulse Ox 98.3 F 98 16 127/79 H 96 03/22/19 11:46 03/22/19 11:46 03/22/19 11:46 03/22/19 11:46 03/22/19 11:46 Course - Vital Signs Vital signs: Temp Pulse Resp BP Pulse Ox 98.3 F 98 16 127/79 H 96 03/22/19 11:46 03/22/19 11:46 03/22/19 11:46 03/22/19 11:46 03/22/19 11:46 Doctor's Discharge - Discharge Referrals: ALEXIS BREWER MD [Primary Care Provider] - Follow up as needed
[2019-03-22 12:33] LABS: ABSOLUTE BASOPHILS # (AUTO) 0.1 10^3/uL (0.0-0.2); ABSOLUTE EOSINOPHILS # (AUTO) 0.2 10^3/uL (0.0-0.6); ABSOLUTE MONOCYTES (AUTO) 0.6 10^3/uL (0.1-1.4); ABSOLUTE NEUT (AUTO) 4.7 10^3/uL (1.7-8.2); BASOPHILS % (AUTO) 1.2 % (0-2); EOSINOPHILS % (AUTO) 1.9 % (0-6); HEMATOCRIT 44.1 % (36.0-47.0); HEMOGLOBIN 15.2 g/dL (12.0-15.5); LYMPHOCYTES % (AUTO) 41.8 % (13-45); MEAN CORPUSCULAR HEMOGLOBIN 29.4 pg (27.0-33.4); MEAN CORPUSCULAR HGB CONC 34.4 g/dL (32.0-36.0); MEAN CORPUSCULAR VOLUME 86 fl (80-97); MONOCYTES % (AUTO) 6.5 % (3-13); PLATELET COUNT 281 10^3/uL (150-450); RED BLOOD COUNT 5.15 10^6/uL (3.72-5.28); RED CELL DISTRIBUTION WIDTH 14.9 % (11.5-14.0); SEGMENTED NEUTROPHILS % (AUTO) 48.6 % (42-78); TOTAL CELLS COUNTED % (AUTO) 100 %; WHITE BLOOD COUNT 9.7 10^3/uL (4.0-10.5)
[2019-03-22 12:46] LABS: APPEARANCE,URINE CLEAR; BILIRUBIN,URINE NEGATIVE (NEGATIVE); COLOR,URINE YELLOW; GLUCOSE, URINE NEGATIVE (NEGATIVE); KETONES,URINE NEGATIVE (NEGATIVE); LEUKOCYTE ESTERASE,URINE NEGATIVE (NEGATIVE); NITRITE,URINE NEGATIVE (NEGATIVE); PROTEIN,URINE NEGATIVE (NEGATIVE); URINE SPECIFIC GRAVITY 1.009; UROBILINOGEN,URINE NEGATIVE mg/dL (<2.0)
[2019-03-22 13:00] LABS: ALBUMIN 4.5 g/dL (3.5-5.0); ALKALINE PHOSPHATASE 78 U/L (38-126); ANION GAP 11 (5-19); ASPARTATE AMINO TRANSFERASE 39 U/L (14-36); BILIRUBIN,DIRECT 0.1 mg/dL (0.0-0.4); BILIRUBIN,TOTAL 0.4 mg/dL (0.2-1.3); BLOOD UREA NITROGEN 12 mg/dL (7-20); CALCIUM 9.7 mg/dL (8.4-10.2); CARBON DIOXIDE 29 mmol/L (22-30); CHLORIDE 98 mmol/L (98-107); GLUCOSE 159 mg/dL (75-110); TOTAL PROTEIN 7.5 g/dL (6.3-8.2)
[2019-03-22 13:03] LABS: POTASSIUM 2.6 mmol/L (3.6-5.0)
--- NOTE | 2019-03-22 13:19 | RADIOLOGY REPORT (SQ) ---
EXAM DESCRIPTION: CT HEAD WITHOUT COMPLETED DATE/TIME: 03/22/2019 1:10 pm REASON FOR STUDY: seizure, change in loc pain COMPARISON: 12/11/2018. TECHNIQUE: Axial images acquired through the brain without intravenous contrast. Images reviewed wi th bone, brain and subdural windows. Additional sagittal and coronal reconstructions were generated. Images stored on PACS. All CT scanners at this facility use dose modulation, iterative reconstruction, and/or weight based d osing when appropriate to reduce radiation dose to as low as reasonably achievable (ALARA). [facility]: Dose Right [facility]: CareDose [facility]: Dose Right [facility]: Teradose 4[facility]: [employer] RADIATION DOSE: CT Rad equipment meets quality standard of care and radiation dose reduction techniq ues were employed. CTDIvol: 53.2 mGy. DLP: 1070 mGy-cm. mGy. LIMITATIONS: None. FINDINGS: VENTRICLES: Normal size and contour. CEREBRUM: No masses. No hemorrhage. No midline shift. No evidence for acute infarction. Normal gra y/white matter differentiation. No areas of low density in the white matter. CEREBELLUM: No masses. No hemorrhage. No alteration of density. No evidence for acute infarction. EXTRAAXIAL SPACES: No fluid collections. No masses. ORBITS AND GLOBE: No intra- or extraconal masses. Normal contour of globe without masses. CALVARIUM: No fracture. PARANASAL SINUSES: No fluid or mucosal thickening. SOFT TISSUES: No mass or hematoma. OTHER: No other significant finding. IMPRESSION: NORMAL BRAIN CT WITHOUT CONTRAST. EVIDENCE OF ACUTE STROKE: NO. COMMENT: Quality ID # [id number]: Final reports with documentation of one or more dose reduction techniques (e.g., Automated exposure control, adjustment of the mA and/or kV according to patient size, use of iterative reconstruction technique) TECHNICAL DOCUMENTATION: JOB ID: [id number] [employer]- All Rights Reserved Reading location - IP/workstation name: [email or web address]
[2019-03-22] MEDS ORDERED: POTASSI CL 20 MEQ/NS 1L 1,000 ML IV PRN (13:25)
[2019-03-22] MEDS ORDERED: TOPIRAMATE 100 MG TABLET PO ONE (13:40)
--- NOTE | 2019-03-22 13:53 | ER Document Report ---
ED Seizure - General Chief Complaint: Probable Seizure Stated Complaint: POSSIBLE SEZIURE Time Seen by Provider: 03/22/19 11:52 Primary Care Provider: ALEXIS BREWER MD [Primary Care Provider] - Follow up as needed Mode of Arrival: Wheelchair Notes: This 44-year-old female with history of seizures presents emergency department post seizure. Reports she was just walking [place] the [place] when she had a seizure hit her head when she fell. She denies symptoms such as fever vomiting diarrhea. Was not incontinent of urine. Reports Dr. Lay that is her neurologist and she takes Topamax as prescribed. History of Present Illness Chief Complaint: Seizure 44 years old female presents today after having had a seizure this morning. With a history of seizure disorder. She takes Topamax 300 mg twice a day. She also on hydrochlorothiazide with potassium supplements. She has not been taking her potassium supplement for a couple of days. Otherwise denies any fever chills or other constitutional symptoms. Had a head injury during the seizure activity. Currently has no headache no foc al weakness numbness tingling sensation. Denies any neck pain neck stiffness. Denies any dysuria frequency urgency History obtained from patient Symptoms began: Today Onset: Abrupt Timing: Lasted minutes, now recovered There was a postictal period, now improved Context: X Patient lost consciousness and exhibited shaking movements Preceding symptoms: None Patient has a history of seizure disorder Compliant with seizure medicine Denies alcohol withdrawal Denies recent illness Aggravating factors: None Relieving factors: None Denies injury/trauma Did not have head injury Denies neck pain Denies incontinence Denies tongue biting Denies focal weakness, numbness, aphasia, visual loss Did not stop breathing or lose pulse Review of systems: All other systems negative as reviewed. CONSTITUTIONAL No fever. EYES No eye pain. ENT No URI symptoms, No sore throat, No ear pain. CARDIOVASCULAR No chest pain, No palpitations, No edema. RESPIRATORY No Cough, No SOB, No wheezing. GASTROINTESTINAL No abdominal pain, No nausea, No vomiting, No diarrhea, No constipation, No melena, No rectal bleeding. GENITOURINARY No UTI symptoms. MUSCULOSKELETAL No back pain. SKIN No Rash. NEUROLOGIC No Headache, No paralysis, No parathesias. ENDOCRINE No polyuria. HEMO/LYMPATIC Patient does not bruise easily. PSYCHIATRIC No depression. Physical Exam CONSTITUTIONAL Vital signs reviewed, Comfortable, Alert and oriented X 3. HEAD Atraumatic, Normal cephalic. EYES No discharge from eye, Sclera are not injected, Extraocular muscles intact, Conjunctiva are normal.perrl,2mm, no photophobia, no nystagmus, fundi wnl. ENT Ears normal to inspection, Nose examination normal, Oropharynx normal, Mucous membranes pink, moist, normal in color. NECK Normal inspection, supple, Normal ROM, No jugular venous distention, No meningeal signs, no carotid bruit or tenderness. RESPIRATORY/CHEST Chest is non-tender, Breath sounds normal, No respiratory distress. CARDIOVASCULAR RRR, Heart sounds normal. ABDOMEN Abdomen is non-tender, No masses, Bowel sounds normal, No distension, No peritoneal signs. BACK Normal inspection. UPPER EXTREMITY Inspection normal, No cyanosis/clubbing/edema. LOWER EXTREMITY Inspection normal, No cyanosis/clubbing/edema, No calf tenderness. NEURO Cn intact, no astreixis, no pronator drift, finger to nose testing coordinated bilaterally, 1+ deep tendon reflexes x 4 ext, down going babinski bilaterally, normal speech, Motor exam normal, Sensory exam normal. SKIN Skin is warm and dry, No rash. LYMPHATIC No adenopathy in neck. PSYCHIATRIC Normal affect. - HPI Notes: Dictated - Related Data Allergies/Adverse Reactions: codeine [Codeine] Allergy (Severe, Verified 03/22/19 11:51) Lock jaw oxycodone HCl [From Percocet] Allergy (Severe, Verified 03/22/19 11:51) Abdominal bleeding Penicillins Allergy (Severe, Verified 03/22/19 11:51) Lips swell simvastatin [From Zocor] Allergy (Severe, Verified 03/22/19 11:51) Anaphylaxis mushrooms Allergy (Unknown, Uncoded 03/22/19 11:51) Past Medical History - General Information source: Patient - Social History Smoking Status: Never Smoker Chew tobacco use (# tins/day): No Frequency of alcohol use: None Drug Abuse: None Lives with: Family Family History: CVA, DM, Hyperlipidemia, Hypertension, Malignancy Patient has suicidal ideation: No Patient has homicidal ideation: No - Past Medical History Cardiac Medical History: Reports: Hx Hypertension Denies: Hx Coronary Artery Disease, Hx Heart Attack Pulmonary Medical History: Denies: Hx Asthma, Hx Bronchitis, Hx COPD, Hx Pneumonia Neurological Medical History: 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 Denies: Hx Cerebrovascular Accident Endocrine Medical History: Reports: Hx Diabetes Mellitus Type 2 Renal/ Medical History: Denies: Hx Peritoneal Dialysis GI Medical History: Musculoskeletal Medical History: Denies Hx Arthritis Psychiatric Medical History: Reports: Hx Anxiety, Hx Bipolar Disorder - &anxiety, Hx Borderline Personality Disorder, Hx Depression Infectious Medical History: Past Surgical History: Reports: Hx Breast Surgery - abscess x2, Hx Cholecystectomy, Hx Genitourinary Surgery - cerclage, Hx Hysterectomy, Hx Orthopedic Surgery - R index tumor removed. Denies: Hx Pacemaker - Immunizations Immunizations up to date: Yes Hx Diphtheria, Pertussis, Tetanus Vaccination: Yes - 2006 Hx Pneumococcal Vaccination: 02/28/12 Review of Systems - Review of Systems Notes: Dictated Physical Exam - Vital signs Vitals: Temp Pulse Resp BP Pulse Ox 98.3 F 98 16 127/79 H 96 03/22/19 11:46 03/22/19 11:46 03/22/19 11:46 03/22/19 11:46 03/22/19 11:46 - Notes Notes: Dictated Course - Re-evaluation Re-evalutation: 03/22/19 13:44 Given IV potassium, extra dose of Topamax 100 mg - Vital Signs Vital signs: Temp Pulse Resp BP Pulse Ox 97.6 F 98 16 127/79 H 99 03/22/19 14:00 03/22/19 11:46 03/22/19 14:00 03/22/19 11:46 03/22/19 14:00 - Laboratory Result Diagrams: 03/22/19 12:16 03/22/19 12:16 Laboratory results interpreted by me: 03/22/19 03/22/19 12:16 12:16 RDW 14.9 H Potassium 2.6 L* Glucose 159 H AST 39 H - Diagnostic Test Radiology reviewed: Reports reviewed - CT of the head was reported by radiologist as - EKG Interpretation by Ct EKG shows normal: Sinus rhythm - Electrocardiogram shows sinus rhythm at the rate of 93 bpm normal axis no acute ST elevation ST depression T wave inversion noted. Discharge - Discharge Clinical Impression: Grand mal seizure, Hypokalemia Condition: Fair Disposition: HOME, SELF-CARE Instructions: Hypokalemia ([facility]), Seizure, Known Epileptic ([facility]) Referrals: ALEXIS BREWER MD [Primary Care Provider] - Follow up as needed
[2019-03-22 19:41] VITALS: BP 112/80
--- NOTE | 2019-03-23 11:00 | EKG REPORT ---
SEVERITY:- BORDERLINE ECG - SINUS RHYTHM BORDERLINE LATERAL Q WAVES BORDERLINE T WAVE ABNORMALITIES : Confirmed by: Lilly Marrero 23-Mar-2019 10:59:06
== END 2019-03-22 19:40 | disposition home or self-care (01) ==
LOC: ER 11:33
DX: G40.409 Other generalized epilepsy and epileptic syndromes, not intractable, without status epilepticus (principal); E87.6 Hypokalemia; E11.9 Type 2 diabetes mellitus without complications; I10 Essential (primary) hypertension; Z79.899 Other long term (current) drug therapy; Z88.5 Allergy status to narcotic agent; Z88.0 Allergy status to penicillin; Z87.892 Personal history of anaphylaxis; Z88.8 Allergy status to other drugs, medicaments and biological substances; Z91.018 Allergy to other foods
CPT/HCPCS: 93005; 99284; 96365; 96366; 36415; 85025; 80053; 81001; 70450; 93010; J3490; J3480

== ENCOUNTER 2019-04-12 19:30 | Emergency (ER) | payer SELFPAY ==
--- NOTE | 2019-04-12 20:05 | ER Document Report ---
ED Medical Screen (RME) - General Chief Complaint: Seizure Stated Complaint: RIGHT ELBOW/HIP INJURY Time Seen by Provider: 04/12/19 19:48 Primary Care Provider: BUBBA LERNER PA-C [Primary Care Provider] - Follow up as needed Notes: Patient is a 44-year-old female with a history of high blood pressure, type 2 diabetes and seizures who presents to the emergency department with a chief complaint of right elbow and right hip pain. Patient reports of the past 24 hours she has had 5-6 seizures. Patient reports this is significantly more than her normal. Patient reports yesterday she was walking down the hallway in her home when she had a seizure, passed out and hit her ahead. Patient reports she did have a loss of consciousness. Patient reports she feels weak all over. Patient reports she does take Topamax, gabapentin and Valium for her seizures and has been taking them as prescribed. Patient reports she did have 3 seizures today. Patient denies injury today. Patient reports she is limping on her ri ght leg she does have significant right hip pain. TRAVEL OUTSIDE OF THE [place] IN LAST 30 DAYS: No - Related Data Allergies/Adverse Reactions: codeine [Codeine] Allergy (Severe, Verified 03/22/19 11:51) Lock jaw oxycodone HCl [From Percocet] Allergy (Severe, Verified 03/22/19 11:51) Abdominal bleeding Penicillins Allergy (Severe, Verified 03/22/19 11:51) Lips swell simvastatin [From Zocor] Allergy (Severe, Verified 03/22/19 11:51) Anaphylaxis mushrooms Allergy (Unknown, Uncoded 03/22/19 11:51) Past Medical History - Social History Family history: Reviewed & Not Pertinent - Past Medical History Cardiac Medical History: Reports: Hx Hypertension Denies: Hx Coronary Artery Disease, Hx Heart Attack Pulmonary Medical History: Denies: Hx Asthma, Hx Bronchitis, Hx COPD, Hx Pneumonia Neurological Medical History: 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 Denies: Hx Cerebrovascular Accident Endocrine Medical History: Reports: Hx Diabetes Mellitus Type 2 Renal/ Medical History: Denies: Hx Peritoneal Dialysis GI Medical History: Musculoskeltal Medical History: Denies Hx Arthritis Psychiatric Medical History: Reports: Hx Anxiety, Hx Bipolar Disorder - &anxiety, Hx Borderline Personality Disorder, Hx Depression Infectious Medical History: Past Surgical History: Reports: Hx Breast Surgery - abscess x2, Hx Cholecystectomy, Hx Genitourinary Surgery - cerclage, Hx Hysterectomy, Hx Orthopedic Surgery - R index tumor removed. Denies: Hx Pacemaker - Immunizations Immunizations up to date: Yes Hx Diphtheria, Pertussis, Tetanus Vaccination: Yes - 2006 Physical Exam - Vital signs Vitals: Temp Pulse Resp BP Pulse Ox 98.9 F 95 16 119/90 H 98 04/12/19 19:39 04/12/19 19:39 04/12/19 19:39 04/12/19 19:39 04/12/19 19:39 - Respiratory Respiratory status: No respiratory distress Chest status: Nontender Breath sounds: Normal Chest palpation: Normal - Cardiovascular Rhythm: Regular Heart sounds: Normal auscultation, S1 appreciated, S2 appreciated Course - Re-evaluation Re-evalutation: 04/12/19 20:05 I have greeted and performed a rapid initial assessment of this patient. A comprehensive ED assessment and evaluation of the patient, analysis of test results and completion of the medical decision making process will be conducted by additional ED providers. - Vital Signs Vital signs: Temp Pulse Resp BP Pulse Ox 98.9 F 95 16 119/90 H 98 04/12/19 19:39 04/12/19 19:39 04/12/19 19:39 04/12/19 19:39 04/12/19 19:39 Doctor's Discharge - Discharge Referrals: BUBBA LERNER PA-C [Primary Care Provider] - Follow up as needed
[2019-04-12] MEDS ORDERED: ONDANSETRON HCL INJ/PF 4 MG/2 ML SDV IV ONE (20:46)
[2019-04-12] MEDS ORDERED: FENTANYL CITRATE INJ/PF 100 MCG/2 ML AMPUL IV PRN (20:46)
--- NOTE | 2019-04-12 20:52 | ER Document Report ---
ED General - General Chief Complaint: Seizure Stated Complaint: RIGHT ELBOW/HIP INJURY Time Seen by Provider: 04/12/19 19:48 Primary Care Provider: UBBBA LERNER PA-C [PHYSICIAN [facility]] - Follow up as needed TRAVEL OUTSIDE OF THE [place] IN LAST 30 DAYS: No - HPI Notes: This is a 44-year-old female with a history of seizure disorder who takes Topamax, Valium and gabapentin for seizures, who presents today with complaint of multiple seizures. Patient tells me that she had 3 seizures yesterday and 3 today. She states that sometimes she goes for prolonged periods of time without any activity, and then gets periods with multiple seizures in a row. This is consistent with her pattern. Family describes episodes where she is gazed at them and then "fell out." There was no generalized tonic-clonic activity described today. This is also consistent with her seizure pattern. Patient states that she hit her head. She complains of headache, right humerus, shoulder, elbow and right hip pain. Patient also complains of slight nausea. She describes her symptoms as moderate. Pain is worse with palpation. She denies any fever or chills. She denies any neck pain or stiffness. She denies any rash or tick bites. - Related Data Allergies/Adverse Reactions: codeine [Codeine] Allergy (Severe, Verified 03/22/19 11:51) Lock jaw oxycodone HCl [From Percocet] Allergy (Severe, Verified 03/22/19 11:51) Abdominal bleeding Penicillins Allergy (Severe, Verified 03/22/19 11:51) Lips swell simvastatin [From Zocor] Allergy (Severe, Verified 03/22/19 11:51) Anaphylaxis mushrooms Allergy (Unknown, Uncoded 03/22/19 11:51) Past Medical History - Social History Smoking Status: Current Every Day Smoker Frequency of alcohol use: Occasional Drug Abuse: None Family History: CVA, DM, Hyperlipidemia, Hypertension, Malignancy Patient has suicidal ideation: No Patient has homicidal ideation: No - Past Medical History Cardiac Medical History: Reports: Hx Hypertension Denies: Hx Coronary Artery Disease, Hx Heart Attack Pulmonary Medical History: Denies: Hx Asthma, Hx Bronchitis, Hx COPD, Hx Pneumonia Neurological Medical History: 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 Denies: Hx Cerebrovascular Accident Endocrine Medical History: Reports: Hx Diabetes Mellitus Type 2 Renal/ Medical History: Denies: Hx Peritoneal Dialysis GI Medical History: Musculoskeletal Medical History: Denies Hx Arthritis Psychiatric Medical History: Reports: Hx Anxiety, Hx Bipolar Disorder - &anxiety, Hx Borderline Personality Disorder, Hx Depression Infectious Medical History: Past Surgical History: Reports: Hx Breast Surgery - abscess x2, Hx Cholecystectomy, Hx Genitourinary Surgery - cerclage, Hx Hysterectomy, Hx Orthopedic Surgery - R index tumor removed. Denies: Hx Pacemaker - Immunizations Immunizations up to date: Yes Hx Diphtheria, Pertussis, Tetanus Vaccination: Yes - 2006 Hx Pneumococcal Vaccination: 02/28/12 Review of Systems - Review of Systems Constitutional: denies: Fever Cardiovascular: denies: Chest pain, Palpitations Gastrointestinal: Nausea. denies: Abdominal pain, Diarrhea, Vomiting Musculoskeletal: Other - Right shoulder, elbow and hip pain.. denies: Back pain Neurological/Psychological: Seizure, Headaches -: Yes All other systems reviewed and negative Physical Exam - Vital signs Vitals: Temp Pulse Resp BP Pulse Ox 98.9 F 95 16 119/90 H 98 04/12/19 19:39 04/12/19 19:39 04/12/19 19:39 04/12/19 19:39 04/12/19 19:39 - General General appearance: Appears well, Alert - HEENT Head: Normocephalic, Atraumatic Eyes: Normal Pupils: PERRL - Respiratory Respiratory status: No respiratory distress Chest status: Nontender Breath sounds: Normal Chest palpation: Normal - Cardiovascular Rhythm: Regular Heart sounds: Normal auscultation Murmur: No - Abdominal Inspection: Normal Distension: No distension Bowel sounds: Normal Tenderness: Nontender Organomegaly: No organomegaly - Back Back: Normal, Nontender - Extremities General upper extremity: Normal inspection, Nontender, Normal color, Normal ROM, Normal temperature General lower extremity: Normal inspection, Normal color, Normal ROM, Normal temperature. No: Cortez's sign Arm: Tender - There is tenderness of the right emerged from the shoulder down to the elbow. No deformity. Normal distal neurovascular exam of the right upper extremity. Hip: Tender - There is tenderness of the right hip. There is no shortening or malrotation or deformity. Normal distal neurovascular exam of the right lower extremity. - Neurological Neuro grossly intact: Yes Cognition: Normal Orientation: AAOx4 - There is no motor, sensory or cerebellar deficits. Nonfocal neurologic exam. GCS is 15. [place] Coma Scale Eye Opening: Spontaneous [place] Coma Scale Verbal: Oriented [place] Coma Scale Motor: Obeys Commands [place] Coma Scale Total: 15 Speech: Normal Motor strength normal: LUE, RUE, LLE, RLE Sensory: Normal - Psychological Associated symptoms: Normal affect, Normal mood - Skin Skin Temperature: Warm Skin Moisture: Dry Skin Color: Normal Course - Re-evaluation Re-evalutation: 04/12/19 20:52 Differential diagnosis includes absence seizure secondary to stress versus no ncompliance versus electrolyte abnormality. Given head injury, will get head CT. 2. Right upper extremity contusion versus less likely fracture. Right hip contusion versus less likely fracture. Will get plain films. 04/12/19 23:05 Patient reevaluated. Patient is doing well. No seizure activity here. Labs and imaging reviewed. Potassium slightly low. Will give oral potassium. Discussed findings with patient. Follow-up discussed with patient. She is stable for discharge. Seizure precautions given. - Vital Signs Vital signs: Temp Pulse Resp BP Pulse Ox 98.9 F 95 24 H 119/90 H 98 04/12/19 19:39 04/12/19 19:39 04/12/19 20:45 04/12/19 19:39 04/12/19 21:00 - Laboratory Result Diagrams: 04/12/19 21:10 04/12/19 21:10 Laboratory results interpreted by me: 04/12/19 04/12/19 21:10 21:10 RDW 15.1 H Lymph % (Auto) 55.9 H Absolute Lymphs (auto) 5.4 H Seg Neutrophils % 35.5 L Sodium 136.2 L Potassium 3.1 L Chloride 94 L Est GFR (MDRD) Non-Af 59 L Glucose 192 H Calcium 10.4 H - Diagnostic Test Radiology reviewed: Image reviewed, Reports reviewed Discharge - Discharge Clinical Impression: Seizure Elbow contusion Qualifiers: Encounter type: initial encounter Laterality: right Qualified Code(s): S50.01XA - Contusion of right elbow, initial encounter Shoulder contusion Qualifiers: Encounter type: initial encounter Laterality: right Qualified Code(s): S40.011A - Contusion of right shoulder, initial encounter Contusion, hip Qualifiers: Encounter type: initial encounter Laterality: right Qualified Code(s): S70.01XA - Contusion of right hip, initial encounter Head injury Qualifiers: Encounter type: initial encounter Qualified Code(s): S09.90XA - Unspecified injury of head, initial encounter Condition: Stable Disposition: HOME, SELF-CARE Instructions: Seizure, Known Epileptic ([facility]), Head Injury Precautions ([facility]), Contusion ([facility]) Additional Instructions: No driving no swimming until cleared by your doctor. Follow-up with your doctor for further management of your seizure medications. Prescriptions: Naproxen 500 mg PO BID PRN #14 tablet PRN Reason: Referrals: BUBBA LERNER PA-C [PHYSIC[facility]] - Follow up as needed
--- NOTE | 2019-04-12 21:02 | RADIOLOGY REPORT (SQ) ---
EXAM DESCRIPTION: CT HEAD WITHOUT IV CONTRAST COMPLETED DATE/TME: 04/12/2019 20:00 CLINICAL HISTORY: 44 years, Female, fell yesterday, hit head, reports loc COMPARISON: EXAM DESCRIPTION: CLINICAL HISTORY: fell yesterday, hit head, reports loc COMPARISON: None Available TECHNIQUE: Contiguous axial CT images of the head were obtained. This exam was performed according to our departmental dose-optimization program, which includes automated exposure control, adjustment of the mA and/or kV according to patient size and/or use of iterative reconstruction technique. FINDINGS: There is no evidence of acute mass, mass effect, midline shift or hemorrhage. The ventricles and extra-axial CSF spaces are unremarkable. The brain parenchyma appears normal for the patient's age. No acute abnormalities of the bones is seen. IMPRESSION: No acute intracranial abnormality. TECHNIQUE: Images stored on PACS. All CT scanners at this facility use dose modulation, iterative reconstruction, and/or weight based dosing when appropriate to reduce radiation dose to as low as reasonably achievable (ALARA). [facility]: Dose Right [facility]: CareDose [facility]: Dose Right [facility]: Teradose 4D [facility]: [employer] LIMITATIONS: None. FINDINGS: IMPRESSION: TECHNICAL DOCUMENTATION: Quality ID # [id number]: Final reports with documentation of one or more dose reduction techniques (e.g., Automated exposure control, adjustment of the mA and/or kV according to patient size, use of iterative reconstruction technique) copyright 2011 [employer]- All Rights Reserved
--- NOTE | 2019-04-12 21:17 | RADIOLOGY REPORT (SQ) ---
EXAM DESCRIPTION: Right elbow [facility]: XR ELBOW 3 VIEWS Views: 4 CLINICAL HISTORY: 44 years Female, fell yesterday, right elbow pain COMPARISON: None. FINDINGS: Negative for acute fracture, dislocation, or radiopaque foreign body. No joint effusion. IMPRESSION: 1. No acute findings.
--- NOTE | 2019-04-12 21:19 | RADIOLOGY REPORT (SQ) ---
EXAM DESCRIPTION: [facility]: XR HIP 2 OR MORE VIEWS Views: 2, AP pelvis and frog-leg view of right hip CLINICAL HISTORY: 44 years Female, fell yesterday, c/o right hip pain COMPARISON: None. FINDINGS: Pelvic alignment is anatomic. Multiple surgical clips are noted. No acute pelvic fracture. Right hip: No fracture or dislocation. IMPRESSION: 1. No acute findings.
[2019-04-12 21:22] LABS: ABSOLUTE BASOPHILS # (AUTO) 0.1 10^3/uL (0.0-0.2); ABSOLUTE EOSINOPHILS # (AUTO) 0.2 10^3/uL (0.0-0.6); ABSOLUTE LYMPHOCYTES (AUTO) 5.4 10^3/uL (0.5-4.7); ABSOLUTE MONOCYTES (AUTO) 0.5 10^3/uL (0.1-1.4); ABSOLUTE NEUT (AUTO) 3.4 10^3/uL (1.7-8.2); BASOPHILS % (AUTO) 0.8 % (0-2); EOSINOPHILS % (AUTO) 2.3 % (0-6); HEMATOCRIT 43.1 % (36.0-47.0); HEMOGLOBIN 14.6 g/dL (12.0-15.5); LYMPHOCYTES % (AUTO) 55.9 % (13-45); MEAN CORPUSCULAR VOLUME 88 fl (80-97); MONOCYTES % (AUTO) 5.5 % (3-13); PLATELET COUNT 237 10^3/uL (150-450); RED BLOOD COUNT 4.88 10^6/uL (3.72-5.28); RED CELL DISTRIBUTION WIDTH 15.1 % (11.5-14.0); SEGMENTED NEUTROPHILS % (AUTO) 35.5 % (42-78); TOTAL CELLS COUNTED % (AUTO) 100 %; WHITE BLOOD COUNT 9.6 10^3/uL (4.0-10.5)
--- NOTE | 2019-04-12 21:34 | EKG REPORT ---
SEVERITY:- NORMAL ECG - SINUS RHYTHM : Confirmed by: Lilly Marrero 12-Apr-2019 21:33:47
[2019-04-12 21:42] LABS: ALBUMIN 4.4 g/dL (3.5-5.0); ALKALINE PHOSPHATASE 79 U/L (38-126); ANION GAP 13 (5-19); ASPARTATE AMINO TRANSFERASE 36 U/L (14-36); BILIRUBIN,DIRECT 0.2 mg/dL (0.0-0.4); BILIRUBIN,TOTAL 0.2 mg/dL (0.2-1.3); BLOOD UREA NITROGEN 13 mg/dL (7-20); CALCIUM 10.4 mg/dL (8.4-10.2); CARBON DIOXIDE 29 mmol/L (22-30); CHLORIDE 94 mmol/L (98-107); GLUCOSE 192 mg/dL (75-110); POTASSIUM 3.1 mmol/L (3.6-5.0); TOTAL PROTEIN 7.2 g/dL (6.3-8.2)
[2019-04-12 22:07] LABS: APPEARANCE,URINE CLEAR; BILIRUBIN,URINE NEGATIVE (NEGATIVE); COLOR,URINE YELLOW; GLUCOSE, URINE NEGATIVE (NEGATIVE); KETONES,URINE NEGATIVE (NEGATIVE); LEUKOCYTE ESTERASE,URINE NEGATIVE (NEGATIVE); NITRITE,URINE NEGATIVE (NEGATIVE); PROTEIN,URINE NEGATIVE (NEGATIVE); URINE SPECIFIC GRAVITY 1.014; UROBILINOGEN,URINE NEGATIVE mg/dL (<2.0)
--- NOTE | 2019-04-12 22:32 | RADIOLOGY REPORT (SQ) ---
Right humerus two view on 04/12/2019 at 9:48 PM CLINICAL INDICATION: Pain after fall COMPARISON: Right elbow exam from earlier the same day FINDINGS: There are no fractures. Visualized joints are well aligned. No bony abnormality is noted. IMPRESSION: No acute abnormality.
[2019-04-12] MEDS ORDERED: POTASSIUM CHLORIDE 10 MEQ CAPSULE.ER PO ONE (23:06)
[2019-04-12 23:48] VITALS: BP 131/81
== END 2019-04-12 23:59 | disposition home or self-care (01) ==
LOC: ER 19:30
DX: S50.01XA Contusion of right elbow, initial encounter (principal); S40.011A Contusion of right shoulder, initial encounter; S70.01XA Contusion of right hip, initial encounter; S09.90XA Unspecified injury of head, initial encounter; G40.909 Epilepsy, unspecified, not intractable, without status epilepticus; R51 Headache; M25.511 Pain in right shoulder; M25.521 Pain in right elbow; M25.551 Pain in right hip; R11.0 Nausea; X58.XXXA Exposure to other specified factors, initial encounter; Z79.899 Other long term (current) drug therapy; F17.200 Nicotine dependence, unspecified, uncomplicated; I10 Essential (primary) hypertension; E11.9 Type 2 diabetes mellitus without complications
CPT/HCPCS: 93005; 36415; 85025; 81025; 80053; 81001; 73080; 73502; 73060; 70450; 93010; J3010; J2405

== ENCOUNTER 2020-01-23 12:50 | Emergency (ER) | payer SELFPAY ==
[2020-01-23 12:56] VITALS: BP 128/75
== END 2020-01-23 14:20 | disposition left against medical advice (07) ==
LOC: ER 12:50
DX: Z53.21 Procedure and treatment not carried out due to patient leaving prior to being seen by health care provider (principal)